=== PATIENT | female | born 1980 | race Caucasian/White ===

== ENCOUNTER 2016-02-15 23:18 | Emergency (ER) | payer OTHER ==
--- NOTE | 2016-02-16 03:17 | ED NURSING NOTES ---
Clinical Report - Nurses [facility] [address] [place] [address] 02/15/2016 23:19 Patient: ALEX WEBSTER TRIAGE Triage time 00:58. Acuity: LEVEL 4. Chief Complaint: COUGH, SORE THROAT and BODY ACHES. --01:04 Tereso Rodgers R.N. 00:58 02/16/16. BP: 143/106. HR: 108. RR: 15. O2 saturation: 100%. Temp: 99.1 F. Pain level now 05/22. --01:04 Tereso Rodgers R.N. Weight: 74.8 kg stated. Height/Length: 67 inches Per Patient. BMI: 25.9. --01:02 Tereso Rodgers R.N. Medications None. --00:59 Tereso Rodgers R.N. Medication/allergy information source: the patient. --01:04 Tereso Rodgers R.N. Allergies Tessalon. --01:00 Tereso Rodgers R.N. The following entry was struck by Tereso Rodgers R.N., 01:00 (02/16/16) Reason - other. <<STRICKEN ENTRY-- No Known Drug Allergy. --00:59 Tereso Rodgers R.N. --END STRIKE>>. History Arrived by private vehicle. Historian: patient. Accompanied by family and friend. Primary physician (Fidencio Daniels). This started yesterday. ( Pt came in with her daughter for cough that is productive that is brown to yellow. Sore throat. Pt denies any fever. Pt is n/v, but no abdominal pain.). She has had chest congestion and vomiting. 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 PAST MEDICAL HX: Immunizations: up-to-date. Denies current . SOCIAL HX: Former smoker. No alcohol use or drug use. --01:04 Tereso Rodgers R.N. PROBLEMS: UTI - Urinary Tract Infection. Pyelonephritis. Pelvic Inflammatory Disease. Dysmenorrhea. Contusion. Back Pain. Neck Pain. Tetanus Status. Abdominal Pain. Acute Pain. Bronchitis. Costochondritis. Vaginal Bleeding. Ectopic . Ureterolithiasis. Dental Pain. Abscess. Pharyngitis. Sinusitis. Migraine Headache. Pelvic Pain. Immunizations. Threatened . LNMP - Last Normal Menstrual Period. OB History. --01:00 Tereso Rodgers R.N. Pelvic Inflammatory Disease [RuleOut]. UTI - Urinary Tract Infection [RuleOut]. Dental Pain [RuleOut]. --01:00 Tereso Rodgers R.N. Interventions ID band on patient. To waiting room. --01:04 Tereso Rodgers R.N. DISPOSITION / DISCHARGE Departure time: 0325. Condition at departure: improved. No learning barriers present. Discharge instructions provided and reviewed with the patient. Reviewed warnings. Reviewed medication(s). Treatments reviewed. Reviewed diet. Activity restrictions reviewed. Patient verbalized understanding. Written instructions provided in Italian. The patient was discharged by the physician. She was discharged home and accompanied by spouse. She left the Emergency Department ambulatory and via private vehicle. Spouse driving. FALL RISK ASSESSMENT: Fall risk assessment completed. No fall risk identified. --03:31 Pancho Yu R.N. 03:30 02/16/16. BP: 138/98. HR: 88. RR: 16. O2 saturation: 99%. Temp: 98 F. Pain level now 0/10. --03:31 Pancho Yu R.N. Locked/Released at 02/16/2016 3:32 by Pancho Yu R.N.
--- NOTE | 2016-02-16 03:17 | ED ORDER SUMMARY ---
..... Patient: AELX WEBSTER OrderSheet [facility] VisitID: [id number] [address] [place] [address] 35y, F Registration Date/Time: 02/15/2016 ORDER SHEET Weight: 74.8 kg (stated) Allergies: Tessalon GENERAL ORDERS: Rapid Influenza Screen (Nasal Pharyngeal) (assistant professor sculpture) Urgent (01:11 02/16/2016 Tyler Brandon per protocol) (1:12 AMcQuoid ER Tech1) MEDICATION ORDERS: IV FLUIDS: ORDER SHEET NOTES: [Electronically signed by Pancho Yu R.N. (03:32 02/16/2016)] [Electronically signed by Nawaf Morales Dr. (11:08 02/16/2016)] [Electronically locked/signed by Pancho Yu R.N. (03:32 02/16/2016)]
--- NOTE | 2016-02-16 03:17 | ED CLINICAL REPORT ---
Clinical Report - Physicians/[facility] [address] [place] [address] 02/15/2016 23:19 Patient: ALEX WEBSTER Time Seen: 02:39 02:39; initial patient contact. Arrived- By private vehicle. Historian- patient. HISTORY OF PRESENT ILLNESS Chief Complaint: "FLU" and possible FLU EXPOSURE. This started about 2 days ago and is still present. It was gradual in onset. No fever, muscle aches, skin rash, headache or chills. No difficulty breathing, chest discomfort, nausea, vomiting or diarrhea. No sputum production. She has had a cough, sinus drainage, nasal congestion, a sore throat and a nasal discharge. The patient has had contact with a sick individual. Similar symptoms previously: None. Recent medical care: The patient was seen recently by a health care provider. REVIEW OF SYSTEMS No sinus pain or abdominal pain. All systems otherwise negative, except as recorded above. PAST HISTORY UTI - Urinary Tract Infection. Pyelonephritis. Pelvic Inflammatory Disease. Dysmenorrhea. Contusion. Back Pain. Neck Pain. Tetanus Status. Abdominal Pain. Acute Pain. Bronchitis. Costochondritis. Vaginal Bleeding. Ectopic . Ureterolithiasis. Dental Pain. Abscess. Pharyngitis. Sinusitis. Migraine Headache. Pelvic Pain. Immunizations. Threatened . LNMP - Last Normal Menstrual Period. OB History. --01:00 Tereso Rodgers R.N. Pelvic Inflammatory Disease [RuleOut]. UTI - Urinary Tract Infection [RuleOut]. Dental Pain [RuleOut]. -. Medications: None. Allergies: Tessalon. SOCIAL HISTORY Former smoker. No alcohol use or drug use. PHYSICAL EXAM Appearance: Alert. No acute distress. Eyes: No conjunctival findings. ENT: Ears normal. Nose normal. Pharyngeal erythema. Neck: No lymphadenopathy. CVS: Normal heart rate and rhythm. Heart sounds normal. Respiratory: No respiratory distress. Breath sounds normal. Skin: No rash. Neuro: Oriented X 3. LABS, X-RAYS, AND EKG Laboratory Tests: Rapid Influenza Screen: (RIMA: 02/16/2016 01:09) ( MsgRcvd 02/16/2016 01:40) Final results SPECIMEN DESCRIPTION: DECONTAMINATION WORKER Test Result Flag Units (Reference) RAPID INFLUENZA SCREEN DATE: 02/16/16 INFLUENZA A: NEGATIVE SCREEN FOR INFLUENZA A INFLUENZA B: NEGATIVE SCREEN FOR INFLUENZA B . PROGRESS AND PROCEDURES Disposition: Discharged home in good condition. Condition: good. CLINICAL IMPRESSION Acute viral rhinitis. Exposure to viral illness (Influenza A). INSTRUCTIONS Alternate Tylenol (Acetaminophen) or Motrin (Ibuprofen) for fever. Take according to label instructions. Drink plenty of fluids. Prescription Medications: Tamiflu 75 mg: take 1 capsule orally every day for 10 days. No refill. Substitution is permissible. Follow-up: Follow up with your doctor in about two days. Call for an appointment. (Electronically signed by Nawaf Morales Dr. 02/16/2016 11:08)
--- NOTE | 2016-02-16 03:17 | ED CLINICAL REPORT ---
Clinical Report - Physicians/Mid Levels [facility] [address] [place] [address] 02/15/2016 23:19 Patient: ALEX WEBSTER Time Seen: 02:39 02:39; initial patient contact. Arrived- By private vehicle. Historian- patient. HISTORY OF PRESENT ILLNESS Chief Complaint: "FLU" and possible FLU EXPOSURE. This started about 2 days ago and is still present. It was gradual in onset. No fever, muscle aches, skin rash, headache or chills. No difficulty breathing, chest discomfort, nausea, vomiting or diarrhea. No sputum production. She has had a cough, sinus drainage, nasal congestion, a sore throat and a nasal discharge. The patient has had contact with a sick individual. Similar symptoms previously: None. Recent medical care: The patient was seen recently by a health care provider. REVIEW OF SYSTEMS No sinus pain or abdominal pain. All systems otherwise negative, except as recorded above. PAST HISTORY UTI - Urinary Tract Infection. Pyelonephritis. Pelvic Inflammatory Disease. Dysmenorrhea. Contusion. Back Pain. Neck Pain. Tetanus Status. Abdominal Pain. Acute Pain. Bronchitis. Costochondritis. Vaginal Bleeding. Ectopic . Ureterolithiasis. Dental Pain. Abscess. Pharyngitis. Sinusitis. Migraine Headache. Pelvic Pain. Immunizations. Threatened . LNMP - Last Normal Menstrual Period. OB History. --01:00 Tereso Rodgers R.N. Pelvic Inflammatory Disease [RuleOut]. UTI - Urinary Tract Infection [RuleOut]. Dental Pain [RuleOut]. -. Medications: None. Allergies: Tessalon. SOCIAL HISTORY Former smoker. No alcohol use or drug use. PHYSICAL EXAM Appearance: Alert. No acute distress. Eyes: No conjunctival findings. ENT: Ears normal. Nose normal. Pharyngeal erythema. Neck: No lymphadenopathy. CVS: Normal heart rate and rhythm. Heart sounds normal. Respiratory: No respiratory distress. Breath sounds normal. Skin: No rash. Neuro: Oriented X 3. LABS, X-RAYS, AND EKG Laboratory Tests: Rapid Influenza Screen: (RIMA: 02/16/2016 01:09) ( MsgRcvd 02/16/2016 01:40) Final results SPECIMEN DESCRIPTION: CHIEF LIBRARIAN BRANCH Test Result Flag Units (Reference) RAPID INFLUENZA SCREEN DATE: 02/16/16 INFLUENZA A: NEGATIVE SCREEN FOR INFLUENZA A INFLUENZA B: NEGATIVE SCREEN FOR INFLUENZA B . PROGRESS AND PROCEDURES Disposition: Discharged home in good condition. Condition: good. CLINICAL IMPRESSION Acute viral rhinitis. Exposure to viral illness (Influenza A). INSTRUCTIONS Alternate Tylenol (Acetaminophen) or Motrin (Ibuprofen) for fever. Take according to label instructions. Drink plenty of fluids. Prescription Medications: Tamiflu 75 mg: take 1 capsule orally every day for 10 days. No refill. Substitution is permissible. Follow-up: Follow up with your doctor in about two days. Call for an appointment. (Electronically signed by Nawaf Morales Dr. 02/16/2016 11:08)
--- NOTE | 2016-02-16 03:17 | ED ORDER SUMMARY ---
..... Patient: ALEX WEBSTER OrderSheet [facility] VisitID: [id number] [address] [place] [address] 35y, F Registration Date/Time: 02/15/2016 ORDER SHEET Weight: 74.8 kg (stated) Allergies: Tessalon GENERAL ORDERS: Rapid Influenza Screen (Nasal Pharyngeal) (specification consultant) Urgent (01:11 02/16/2016 Tyler Brandon per protocol) (1:12 AMcQuoid ER Tech1) MEDICATION ORDERS: IV FLUIDS: ORDER SHEET NOTES: [Electronically signed by Pancho Yu R.N. (03:32 02/16/2016)] [Electronically signed by Nawaf Morales Dr. (11:08 02/16/2016)] [Electronically locked/signed by Pancho Yu R.N. (03:32 02/16/2016)]
--- NOTE | 2016-02-16 03:17 | ED NURSING NOTES ---
Clinical Report - Nurses [facility] [address] [place] [address] 02/15/2016 23:19 Patient: ALEX WEBSTER TRIAGE Triage time 00:58. Acuity: LEVEL 4. Chief Complaint: COUGH, SORE THROAT and BODY ACHES. --01:04 Tereso Rodgers R.N. 00:58 02/16/16. BP: 143/106. HR: 108. RR: 15. O2 saturation: 100%. Temp: 99.1 F. Pain level now 05/22. --01:04 Tereso Rodgers R.N. Weight: 74.8 kg stated. Height/Length: 67 inches Per Patient. BMI: 25.9. --01:02 Tereso Rodgers R.N. Medications None. --00:59 Tereso Rodgers R.N. Medication/allergy information source: the patient. --01:04 Tereso Rodgers R.N. Allergies Tessalon. --01:00 Tereso Rodgers R.N. The following entry was struck by Tereso Rodgers R.N., 01:00 (02/16/16) Reason - other. <<STRICKEN ENTRY-- No Known Drug Allergy. --00:59 Tereso Rodgers R.N. --END STRIKE>>. History Arrived by private vehicle. Historian: patient. Accompanied by family and friend. Primary physician (Fidencio Daniels). This started yesterday. ( Pt came in with her daughter for cough that is productive that is brown to yellow. Sore throat. Pt denies any fever. Pt is n/v, but no abdominal pain.). She has had chest congestion and vomiting. 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 PAST MEDICAL HX: Immunizations: up-to-date. Denies current . SOCIAL HX: Former smoker. No alcohol use or drug use. --01:04 Tereso Rodgers R.N. PROBLEMS: UTI - Urinary Tract Infection. Pyelonephritis. Pelvic Inflammatory Disease. Dysmenorrhea. Contusion. Back Pain. Neck Pain. Tetanus Status. Abdominal Pain. Acute Pain. Bronchitis. Costochondritis. Vaginal Bleeding. Ectopic . Ureterolithiasis. Dental Pain. Abscess. Pharyngitis. Sinusitis. Migraine Headache. Pelvic Pain. Immunizations. Threatened . LNMP - Last Normal Menstrual Period. OB History. --01:00 Tereso Rodgers R.N. Pelvic Inflammatory Disease [RuleOut]. UTI - Urinary Tract Infection [RuleOut]. Dental Pain [RuleOut]. --01:00 Tereso Rodgers R.N. Interventions ID band on patient. To waiting room. --01:04 Tereso Rodgers R.N. DISPOSITION / DISCHARGE Departure time: 0325. Condition at departure: improved. No learning barriers present. Discharge instructions provided and reviewed with the patient. Reviewed warnings. Reviewed medication(s). Treatments reviewed. Reviewed diet. Activity restrictions reviewed. Patient verbalized understanding. Written instructions provided in [place]. The patient was discharged by the physician. She was discharged home and accompanied by spouse. She left the Emergency Department ambulatory and via private vehicle. Spouse driving. FALL RISK ASSESSMENT: Fall risk assessment completed. No fall risk identified. --03:31 Pancho Yu R.N. 03:30 02/16/16. BP: 138/98. HR: 88. RR: 16. O2 saturation: 99%. Temp: 98 F. Pain level now 0/10. --03:31 Pancho Yu R.N. Locked/Released at 02/16/2016 3:32 by Pancho Yu R.N.
--- NOTE | 2016-02-16 11:08 | ED MAR SUMMARY ---
..... Medication Administration Record [facility] [address], [place] [id number] Patient: ALEX WEBSTER Victorino Visit ID: [id number] 35y, F Weight: 74.8 kg Height/Length: 67 in BMI: 25.9 ALLERGIES: Tessalon
--- NOTE | 2016-02-16 11:08 | ED DISCHARGE INSTRUCTIONS ---
Patient: ALEX WEBSTER General Instructions [facility] VisitID: [id number] [place] [address] 35y, F Registration Date/Time: 02/15/2016 Acute viral rhinitis. Exposure to viral illness (Influenza A). INSTRUCTIONS Alternate Tylenol (Acetaminophen) or Motrin (Ibuprofen) for fever. Take according to label instructions. Drink plenty of fluids. Prescription Medications: Tamiflu 75 mg: take 1 capsule orally every day for 10 days. No refill. Substitution is permissible. Follow-up: Follow up with your doctor in about two days. Call for an appointment. ADDITIONAL INFORMATION Viral Respiratory Illness [Adult] You have an Upper Respiratory Illness (URI) caused by a virus. This illness is contagious during the first few days. It is spread through the air by coughing and sneezing or by direct contact (touching the sick person and then touching your own eyes, nose or mouth). Most viral illnesses go away within 7-10 days with rest and simple home remedies. Sometimes, the illness may last for several weeks. Antibiotics will not kill a virus and are generally not prescribed for this condition. Home Care: 1) If symptoms are severe, rest at home for the first 2-3 days. When you resume activity, don't let yourself get too tired. 2) Avoid being exposed to cigarette smoke (yours or others). 3) Tylenol (acetaminophen) or ibuprofen (Advil, Motrin) will help fever, muscle aching and headache. (Persons under 18 with fever should not take aspirin since this may cause liver damage.) 4) Your appetite may be poor, so a light diet is fine. Avoid dehydration by drinking 6-8 glasses of fluids per day (water, soft drinks, juices, tea, soup). Extra fluids will help loosen secretions in the nose and lungs. 5) Aobt-kii-posayqe cold medicines will not shorten the length of time youre sick, but they may be helpful for the following symptoms: cough (Robitussin DM); sore throat (Chloraseptic lozenges or spray); nasal and sinus congestion (Actifed, Sudafed, Chlortrimeton). Follow Up with your doctor or as advised if you dont improve over the next week. Get Prompt Medical Attention if any of the following occur: -- Cough with lots of colored sputum (mucus) or blood in your sputum -- Chest pain, shortness of breath, wheezing or have trouble breathing -- Severe headache; face, neck or ear pain -- Fever over 100.4 F (38.0 C) for more than three days -- You cant swallow due to throat pain Fever Control (Adult) A fever is a natural reaction of the body to an illness. In most cases, the temperature itself is not harmful. It actually helps the body fight infections. A fever does not need to be treated unless you feel very uncomfortable. Home Care If you feel warm, check your temperature. If you feel very uncomfortable and your temperature is at or higher than 100.4F (38C) oral, you may take acetaminophen (Tylenol) every 4 to 6 hours. If you cant take or keep down oral medicine, ask your pharmacist for Tylenol suppositories, which you can get without a prescription. If the fever does not respond to acetaminophen within 1 hour, take ibuprofen (Advil or Motrin). If this works, keep taking the ibuprofen every 6 to 8 hours. Note: If you have chronic liver or kidney disease or ever had a stomach ulcer or GI bleeding, talk with your doctor before using these medications. If either medication alone does not keep the fever down, you may alternate the two medicines every 3 to 4 hours, only if your healthcare provider has instructed you to do so. For example, take Motrin then wait 3 hours, take Tylenol then wait 3 hours, take Motrin, and so on. Follow your healthcare providers instructions exactly. Clothing: Keep clothing light because excess body heat is lost through the skin. The fever will go up if you wear extra layers or wrap in blankets. Fluids: Fever causes the body to lose water through evaporation. Drink plenty of fluids such as water, juice, clear sodas, yash derek, or lemonade. Do not use aspirin in anyone under 18 years of age who is ill with a fever. It can cause severe liver damage. Follow Up with your doctor or as advised by our staff if you do not get better after 48 hours. Get Prompt Medical Attention if any of the following occur: Fever does not get better after taking fever medication Fast or difficult breathing Earache, sinus pain, stiff or painful neck, headache, repeated diarrhea or vomiting You feel unusually irritable, drowsy, or confused A rash appears You feel weak or dizzy, or that you might faint Oseltamivir Phosphate Oral capsule What is this medicine? OSELTAMIVIR (os el CHAN i vir) is an antiviral medicine. It is used to prevent and to treat some kinds of influenza or the flu. It will not work for colds or other viral infections. How should I use this medicine? Take this medicine by mouth with a glass of water. Follow the directions on the prescription label. Start this medicine at the first sign of flu symptoms. You can take it with or without food. If it upsets your stomach, take it with food. Take your medicine at regular intervals. Do not take your medicine more often than directed. Take all of your medicine as directed even if you think you are better. Do not skip doses or stop your medicine early. Talk to your student financial services counselor regarding the use of this medicine in children. While this drug may be prescribed for children as young as 14 days for selected conditions, precautions do apply. What side effects may I notice from receiving this medicine? Side effects that you should report to your doctor or health managed care manager as soon as possible: allergic reactions like skin rash, itching or hives, swelling of the face, lips, or tongue anxiety, confusion, unusual behavior breathing problems hallucination, loss of contact with reality redness, blistering, peeling or loosening of the skin, including inside the mouth seizures Side effects that usually do not require medical attention (report to your doctor or health managed care manager if they continue or are bothersome): cough diarrhea dizziness headache nausea, vomiting stomach pain What may interact with this medicine? Interactions are not expected. What if I miss a dose? If you miss a dose, take it as soon as you remember. If it is almost time for your next dose (within 2 hours), take only that dose. Do not take double or extra doses. Where should I keep my medicine? Keep out of the reach of children. Store at room temperature between 15 and 30 degrees C (59 and 86 degrees F). Throw away any unused medicine after the expiration date. What should I tell my health care provider before I take this medicine? They need to know if you have any of the following conditions: heart disease immune system problems kidney disease liver disease lung disease an unusual or allergic reaction to oseltamivir, other medicines, foods, dyes, or preservatives or trying to get breast-feeding What should I watch for while using this medicine? Visit your doctor or health managed care manager for regular check ups. Tell your doctor if your symptoms do not start to get better or if they get worse. If you have the flu, you may be at an increased risk of developing seizures, confusion, or abnormal behavior. This occurs early in the illness, and more frequently in children and teens. These events are not common, but may result in accidental injury to the patient. Families and caregivers of patients should watch for signs of unusual behavior and contact a doctor or health managed care manager right away if the patient shows signs of unusual behavior. This medicine is not a substitute for the flu shot. Talk to your doctor each year about an annual flu shot. You have been given the following additional information: Uri, Viral, No Abx (Adult) Fever Control (Adult) Oseltamivir Phosphate Oral capsule (Electronically signed by Nawaf Morales Dr. 02/16/2016 11:08)
--- NOTE | 2016-02-16 11:08 | ED MAR SUMMARY ---
..... Medication Administration Record [facility] [address] [place], [place] [id number] Patient: ALEX WEBSTER Victorino Visit ID: [id number] 35y, F Weight: 74.8 kg Height/Length: 67 in BMI: 25.9 ALLERGIES: Tessalon
--- NOTE | 2016-02-16 11:08 | ED DISCHARGE INSTRUCTIONS ---
Patient: ALEX WEBSTER General Instructions [facility] VisitID: [id number] [place] [address] 35y, F Registration Date/Time: 02/15/2016 Acute viral rhinitis. Exposure to viral illness (Influenza A). INSTRUCTIONS Alternate Tylenol (Acetaminophen) or Motrin (Ibuprofen) for fever. Take according to label instructions. Drink plenty of fluids. Prescription Medications: Tamiflu 75 mg: take 1 capsule orally every day for 10 days. No refill. Substitution is permissible. Follow-up: Follow up with your doctor in about two days. Call for an appointment. ADDITIONAL INFORMATION Viral Respiratory Illness [Adult] You have an Upper Respiratory Illness (URI) caused by a virus. This illness is contagious during the first few days. It is spread through the air by coughing and sneezing or by direct contact (touching the sick person and then touching your own eyes, nose or mouth). Most viral illnesses go away within 7-10 days with rest and simple home remedies. Sometimes, the illness may last for several weeks. Antibiotics will not kill a virus and are generally not prescribed for this condition. Home Care: 1) If symptoms are severe, rest at home for the first 2-3 days. When you resume activity, don't let yourself get too tired. 2) Avoid being exposed to cigarette smoke (yours or others). 3) Tylenol (acetaminophen) or ibuprofen (Advil, Motrin) will help fever, muscle aching and headache. (Persons under 18 with fever should not take aspirin since this may cause liver damage.) 4) Your appetite may be poor, so a light diet is fine. Avoid dehydration by drinking 6-8 glasses of fluids per day (water, soft drinks, juices, tea, soup). Extra fluids will help loosen secretions in the nose and lungs. 5) Njmg-jso-vbxcesh cold medicines will not shorten the length of time youre sick, but they may be helpful for the following symptoms: cough (Robitussin DM); sore throat (Chloraseptic lozenges or spray); nasal and sinus congestion (Actifed, Sudafed, Chlortrimeton). Follow Up with your doctor or as advised if you dont improve over the next week. Get Prompt Medical Attention if any of the following occur: -- Cough with lots of colored sputum (mucus) or blood in your sputum -- Chest pain, shortness of breath, wheezing or have trouble breathing -- Severe headache; face, neck or ear pain -- Fever over 100.4 F (38.0 C) for more than three days -- You cant swallow due to throat pain Fever Control (Adult) A fever is a natural reaction of the body to an illness. In most cases, the temperature itself is not harmful. It actually helps the body fight infections. A fever does not need to be treated unless you feel very uncomfortable. Home Care If you feel warm, check your temperature. If you feel very uncomfortable and your temperature is at or higher than 100.4F (38C) oral, you may take acetaminophen (Tylenol) every 4 to 6 hours. If you cant take or keep down oral medicine, ask your pharmacist for Tylenol suppositories, which you can get without a prescription. If the fever does not respond to acetaminophen within 1 hour, take ibuprofen (Advil or Motrin). If this works, keep taking the ibuprofen every 6 to 8 hours. Note: If you have chronic liver or kidney disease or ever had a stomach ulcer or GI bleeding, talk with your doctor before using these medications. If either medication alone does not keep the fever down, you may alternate the two medicines every 3 to 4 hours, only if your healthcare provider has instructed you to do so. For example, take Motrin then wait 3 hours, take Tylenol then wait 3 hours, take Motrin, and so on. Follow your healthcare providers instructions exactly. Clothing: Keep clothing light because excess body heat is lost through the skin. The fever will go up if you wear extra layers or wrap in blankets. Fluids: Fever causes the body to lose water through evaporation. Drink plenty of fluids such as water, juice, clear sodas, yash derek, or lemonade. Do not use aspirin in anyone under 18 years of age who is ill with a fever. It can cause severe liver damage. Follow Up with your doctor or as advised by our staff if you do not get better after 48 hours. Get Prompt Medical Attention if any of the following occur: Fever does not get better after taking fever medication Fast or difficult breathing Earache, sinus pain, stiff or painful neck, headache, repeated diarrhea or vomiting You feel unusually irritable, drowsy, or confused A rash appears You feel weak or dizzy, or that you might faint Oseltamivir Phosphate Oral capsule What is this medicine? OSELTAMIVIR (os el CHAN i vir) is an antiviral medicine. It is used to prevent and to treat some kinds of influenza or the flu. It will not work for colds or other viral infections. How should I use this medicine? Take this medicine by mouth with a glass of water. Follow the directions on the prescription label. Start this medicine at the first sign of flu symptoms. You can take it with or without food. If it upsets your stomach, take it with food. Take your medicine at regular intervals. Do not take your medicine more often than directed. Take all of your medicine as directed even if you think you are better. Do not skip doses or stop your medicine early. Talk to your court officer regarding the use of this medicine in children. While this drug may be prescribed for children as young as 14 days for selected conditions, precautions do apply. What side effects may I notice from receiving this medicine? Side effects that you should report to your doctor or health patient care provider as soon as possible: allergic reactions like skin rash, itching or hives, swelling of the face, lips, or tongue anxiety, confusion, unusual behavior breathing problems hallucination, loss of contact with reality redness, blistering, peeling or loosening of the skin, including inside the mouth seizures Side effects that usually do not require medical attention (report to your doctor or health patient care provider if they continue or are bothersome): cough diarrhea dizziness headache nausea, vomiting stomach pain What may interact with this medicine? Interactions are not expected. What if I miss a dose? If you miss a dose, take it as soon as you remember. If it is almost time for your next dose (within 2 hours), take only that dose. Do not take double or extra doses. Where should I keep my medicine? Keep out of the reach of children. Store at room temperature between 15 and 30 degrees C (59 and 86 degrees F). Throw away any unused medicine after the expiration date. What should I tell my health care provider before I take this medicine? They need to know if you have any of the following conditions: heart disease immune system problems kidney disease liver disease lung disease an unusual or allergic reaction to oseltamivir, other medicines, foods, dyes, or preservatives or trying to get breast-feeding What should I watch for while using this medicine? Visit your doctor or health patient care provider for regular check ups. Tell your doctor if your symptoms do not start to get better or if they get worse. If you have the flu, you may be at an increased risk of developing seizures, confusion, or abnormal behavior. This occurs early in the illness, and more frequently in children and teens. These events are not common, but may result in accidental injury to the patient. Families and caregivers of patients should watch for signs of unusual behavior and contact a doctor or health patient care provider right away if the patient shows signs of unusual behavior. This medicine is not a substitute for the flu shot. Talk to your doctor each year about an annual flu shot. You have been given the following additional information: Uri, Viral, No Abx (Adult) Fever Control (Adult) Oseltamivir Phosphate Oral capsule (Electronically signed by Nawaf Morales Dr. 02/16/2016 11:08)
--- NOTE | 2016-02-16 11:08 | ED MED RECONCILIATION SUMMARY ---
Patient: ALEX WEBSTER Medication Reconciliation Report [facility] VisitID: [id number] [address] [place] [address] 35y, F Registration Date/Time: 02/15/2016 Weight: 74.8 kg Height/Length: 67 in. BMI: 25.9 ALLERGIES: Tessalon The patient's Home Medications are listed below: NONE. The source(s) of the original Home Medication information: patient The following Medications were given to the patient in the Emergency Department: None. The following Medications were prescribed to the patient: Tamiflu 75 mg: take 1 capsule orally every day for 10 days. No refill. Substitution is permissible. -- Nawaf Morales Dr.
--- NOTE | 2016-02-16 11:08 | ED MED RECONCILIATION SUMMARY ---
Patient: ALEX WEBSTER Medication Reconciliation Report [facility] VisitID: [id number] [address] [place] [address] 35y, F Registration Date/Time: 02/15/2016 Weight: 74.8 kg Height/Length: 67 in. BMI: 25.9 ALLERGIES: Tessalon The patient's Home Medications are listed below: NONE. The source(s) of the original Home Medication information: patient The following Medications were given to the patient in the Emergency Department: None. The following Medications were prescribed to the patient: Tamiflu 75 mg: take 1 capsule orally every day for 10 days. No refill. Substitution is permissible. -- Nawaf Morales Dr.
== END 2016-02-16 03:25 | disposition home or self-care (01) ==
LOC: ED SRH 23:18
DX: J00 Acute nasopharyngitis [common cold] (principal); B97.89 Other viral agents as the cause of diseases classified elsewhere; Z20.828 Contact with and (suspected) exposure to other viral communicable diseases; G43.909 Migraine, unspecified, not intractable, without status migrainosus; Z88.8 Allergy status to other drugs, medicaments and biological substances
CPT/HCPCS: 91400

== ENCOUNTER 2016-03-13 18:19 | Emergency (ER) | payer OTHER ==
--- NOTE | 2016-03-13 19:49 | ED NURSING NOTES ---
Clinical Report - Nurses [facility] [address] [place] [address] 03/13/2016 18:20 Patient: ALEX WEBSTER TRIAGE Triage time 1825 PM. Acuity: LEVEL 4. Chief Complaint: ABDOMINAL PAIN and NAUSEA. --18:33 Maggie Chavira R.N. 18:25 03/13/16. BP: 138/100. HR: 98. RR: 16. O2 saturation: 100%. Temp: 97.7 F (oral). Pain level now: 07/22. --18:33 Maggie Chavira R.N. Weight: 77.1 kg stated. Height/Length: 67 inches Per Patient. BMI: 26.6. --18:27 Maggie Chavira R.N. Medications None. --18:31 Maggie Chavira R.N. Allergies Tessalon. --18:31 Maggie Chavira R.N. Medication/allergy information source: the patient. --18:33 Maggie Chavira R.N. History Arrived by private vehicle. Historian: patient. Primary physician (Dr Mancilla). ( Pt states as of yesterday starting having abdominal pain cramping like pain with radiation to right flank area, nauseous, denies fever or chills. Pt does admit to feeling like a kidney stone, does admit to some bleeding.). This started yesterday. She has had nausea and abdominal pain. No vomiting, diarrhea or constipation. 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 PAST MEDICAL HX: Immunizations: up-to-date. SOCIAL HX: Former smoker. No alcohol use or drug use. No recent travel. No infectious disease exposure. No known contact with a sick individual. ABUSE ASSESSMENT: No report of abuse. SELF HARM ASSESSMENT: A self harm assessment was performed. The patient answered "no" to the question "Do you have thoughts of harming or killing yourself?" and "Have you recently had thoughts about harming or killing others?". FALL RISK ASSESSMENT: Fall risk assessment completed. No fall risk identified. NUTRITIONAL RISK ASSESSMENT: The nutritional risk assessment revealed no deficiencies. FUNCTIONAL ASSESSMENT: Functional assessment: no impairments noted. LEARNING NEEDS ASSESSMENT: The learning needs assessment revealed no barriers. SKIN INTEGRITY ASSESSMENT: Skin integrity risk assessment completed. No skin integrity risk identified. --18:33 Maggie Chavira R.N. PROBLEMS: Exposure To Infectious Disease. URI. UTI - Urinary Tract Infection. Pyelonephritis. Pelvic Inflammatory Disease. Dysmenorrhea. Contusion. Back Pain. Neck Pain. Tetanus Status. Abdominal Pain. Acute Pain. Bronchitis. Costochondritis. Vaginal Bleeding. Ectopic . Ureterolithiasis. Dental Pain. Abscess. Pharyngitis. Sinusitis. Migraine Headache. Pelvic Pain. Immunizations. Threatened . LNMP - Last Normal Menstrual Period. OB History. --18:31 Maggie Chavira R.N. Pelvic Inflammatory Disease [RuleOut]. UTI - Urinary Tract Infection [RuleOut]. Dental Pain [RuleOut]. --18:31 Maggie Chavira R.N. ADDITIONAL SURGERIES: Cone biopsy. Lithotripsy. --18:31 Maggie Chavira R.N. Interventions ID band on patient. --18:33 Maggie Chavira R.N. PHYSICAL ASSESSMENT GENERAL / NEURO / PSYCH: Alert. Oriented X 4. Appears in no acute distress. HEENT: Mucous membranes are pink. RESPIRATORY: Respirations not labored. Breath sounds within normal limits. CVS: Capillary refill less than 2 seconds. GI / : The patient has had nausea. Abdomen soft and nontender. Abdominal tenderness in the lower abdomen. SKIN: Skin is warm and dry. --18:34 Maggie Chavira R.N. NURSING PROGRESS NOTES The initial plan of care for this patient has been created This plan of care was discussed with the patient and family. Patient gowned. Warming measures: blanket applied. Reassurance given. Patient ID band checked for patient name, birthdate and medical record number: patient confirmed. Instructions provided to collect clean catch urine and patient verbalized understanding. Clean catch urine collected with return of yellow-colored clear urine; sample sent to lab for urinalysis. Specimen labeled in the presence of the patient. Two patient identifiers checked. Call light placed in reach. Side rails up x 1. Bed placed in lowest position. Brakes of bed on. Patient placed in chair. Brakes of chair on. --18:34 Maggie Chavira R.N. 18:35 03/13/16. BP: 144/99 taken on the left arm, via an automated monitor, while sitting. HR: 100. RR: 16. O2 saturation: 100%. Pain level now: 07/22. --18:35 Maggie Chavira R.N. Checked patient name and birthdate: patient confirmed. Blood samples drawn from the right antecubital space with syringe and butterfly by tech per protocol ; labeled in presence of the patient and sent to lab: rainbow set: cardiac enzymes (1st set). --19:50 Sebastien Desir. DISPOSITION / DISCHARGE Departure time: 1954 PM. Condition at departure: stable. No learning barriers present. Discharge instructions provided and reviewed. Reviewed medication(s) side effects, precautions, dosing and course information. Prescription(s) given to the patient. Patient verbalized understanding. Written instructions provided in Sinhala. The patient was discharged by the physician paraprofessional education assistant. She was discharged home and accompanied by family. She left the Emergency Department ambulatory and via private vehicle. Parent driving. FALL RISK ASSESSMENT: Fall risk assessment completed. No fall risk identified. CLAUDINE COMA SCORE: [place] Coma Scale: 15- eyes open spontaneously (4); best verbal response- oriented x 4 (5); best motor response- obeys commands (6). --20:02 Maggie Chavira R.N. 19:50 03/13/16. BP: 134/89 (regular adult cuff) taken on the left arm, via an automated monitor, while sitting. HR: 73. RR: 16 (regular). O2 saturation: 100% on room air. Temp: 98.2 F. Pain level now: 06/21. --20:02 Maggie Chavira R.N. Locked/Released at 03/13/2016 20:03 by Maggie Chavira R.N.
--- NOTE | 2016-03-13 19:49 | ED CLINICAL REPORT ---
Clinical Report - Physicians/Mid Levels [facility] [address] [place] [address] 03/13/2016 18:20 Patient: ALEX WEBSTER Time Seen: 18:53 Mar 13 2016. Arrived- By private vehicle. Historian- patient. HISTORY OF PRESENT ILLNESS Chief Complaint: ABDOMINAL PAIN. This started just prior to arrival and is still present. It is described as "pain". (R abd pain/ flank pain, similar pain to nephrolithaisis in the past, possible hematuria. Pt with no emesis/ diarrhea. LMP about 6 weeks prior, neg at home u preg.). REVIEW OF SYSTEMS No difficulty with urination, pain with urination, fever, headache or chills. All systems otherwise negative, except as recorded above. PAST HISTORY Problems: Exposure To Infectious Disease. URI. UTI - Urinary Tract Infection. Pyelonephritis. Pelvic Inflammatory Disease. Dysmenorrhea. Contusion. Back Pain. Neck Pain. Tetanus Status. Abdominal Pain. Acute Pain. Bronchitis. Costochondritis. Vaginal Bleeding. Ectopic . Ureterolithiasis. Dental Pain. Abscess. Pharyngitis. Sinusitis. Migraine Headache. Pelvic Pain. Immunizations. Threatened . LNMP - Last Normal Menstrual Period. OB History. Additional Surgeries: Cone biopsy. Lithotripsy. Medications: None. Allergies: Tessalon. SOCIAL HISTORY Former smoker. No alcohol use or drug use. ADDITIONAL NOTES The nursing notes have been reviewed. PHYSICAL EXAM Vital Signs: 03/13/2016 19:50 BP: 134/89. HR: 73. RR: 16. O2 saturation: 100%. Temp: 98.2 F. Pain level now: 5/10. Appearance: Alert. No acute distress. Eyes: Eyes normal inspection. Neck: Normal inspection. Neck supple. CVS: Normal heart rate and rhythm. Heart sounds normal. Respiratory: No respiratory distress. No respiratory distress. Breath sounds normal. No accessory muscle use. Abdomen: Soft. No abdominal tenderness. (no reproducible examination are). Back: Normal inspection. Skin: Skin warm. Normal skin color. LABS, X-RAYS, AND EKG Laboratory Tests: UA-Culture if indicated: (RIMA: 03/13/2016 18:30) ( [facility] 03/13/2016 19:04) Final results Test Result Flag Units (Reference) URINE COLOR YELLOW URINE APPEARANCE CLEAR URINE GLUCOSE NEGATIVE (NEGATIVE) URINE BILIRUBIN NEGATIVE (NEGATIVE) URINE KETONE NEGATIVE (NEGATIVE) URINE SPECIFIC GRAVITY 1.015 (1.010-1.030) URINE PH 8.5 H (5.0-8.0) URINE PROTEIN NEGATIVE (NEGATIVE) URINE UROBILINOGEN 0.2 EU/dL (0.2-1.0) URINE NITRITE NEGATIVE (NEGATIVE) URINE BLOOD NEGATIVE (NEGATIVE) URINE LEUK ESTERASE NEGATIVE (NEGATIVE) URINE RBC NONE SEEN rbc/hpf (0-1) URINE WBC 0-1 wbc/hpf (0-1) URINE EPITHELIAL CELLS 1-3 EPI/hpf (0-5) URINE BACTERIA NONE SEEN (NONE SEEN) URINE COMMENT CULT NOT INDICATED URINE CULTURES ARE SET-UP BASED ON THE FOLLOWING CRITERIA:POSITIVE NITRITEPOSITIVE LEUKOCYTE ESTERASEGREATER THAN 10 WHITE BLOOD CELLSMODERATE (2+) OR GREATER BACTERIA Urine: (RIMA: 03/13/2016 18:30) ( [facility] 03/13/2016 18:56) Final results Test Result Flag Units (Reference) URINE NEGATIVE CBC w Diff: (RIMA: 03/13/2016 19:10) ( [facility] 03/13/2016 19:19) Final results Test Result Flag Units (Reference) WHITE BLOOD COUNT 7.4 K/uL (4.5-11.5) RED BLOOD COUNT 4.46 M/uL (4.00-5.20) HEMOGLOBIN 12.4 gm/dL (12.0-16.0) HEMATOCRIT 38.3 % (36.0-46.0) MEAN CELL VOLUME 86 fL (80-100) MEAN CORPUSCULAR HGB 28 pg (26-34) MEAN CORPUSCULAR HGB CONC 32 g/dL (31-37) RED CELL DISTRIBUTION WIDTH 14.6 % (11.6-14.8) PLATELET COUNT 206 K/uL (150-400) NEUTROPHIL % 66.8 % (50-75) LYMPH % 26.2 % (25-40) MONO % 5.9 % (3-14) EOSINOPHIL % 0.7 % (0-4) BASOPHIL % 0.4 % (0-2) CMP: (RIMA: 03/13/2016 19:10) ( MsgRcvd 03/13/2016 19:29) Final results Test Result Flag Units (Reference) GLUCOSE 90 mg/dL (70-110) BUN 10 mg/dL (7-18) CREATININE 0.6 mg/dL (0.6-1.3) Estimated GFR >60 mL/min Estimated GFR- >60 mL/min Note: Persistent reduction over 3 months in eGFR<60 mL/min/1.73 m2 defines CKD. Patients with eGFR values>=60 mL/min/1.73 m2 may also have CKD if evidence ofpersistent proteinuria. Additional information may be foundat www.[email or web address].org. SODIUM 142 mmol/L (136-145) POTASSIUM 3.6 mmol/L (3.5-5.1) CHLORIDE 108 H mmol/L (98-107) CARBON DIOXIDE 28 mmol/L (21-32) CALCIUM 8.5 mg/dL (8.5-10.1) TOTAL PROTEIN 7.1 g/dL (6.4-8.2) ALBUMIN 3.9 g/dL (3.3-5.0) BILIRUBIN, TOTAL 0.2 mg/dL (0.0-1.0) ALKALINE PHOSPHATASE 67 U/L (46-116) AST (SGOT) 14 L U/L (15-37) ALT (SGPT) 23 U/L (12-78) . PROGRESS AND PROCEDURES Course of Care: During the time in the ED, the following DDX were considered: acute surgical abdomen, hemodynamic or metabolic instability, dehydration, gastroenteritis-viral, food borne, or bacterial, food intolerance, irritable or inflammatory bowel, infection, sepsis. Here in er with salo form with [facility] will forego ct at this time, will tx for possible presumptive nephrolithiasis with hydration, and tramadol. Pt otherwise stable and no signs of acute surgical abdome. 03/13/2016 19:50 BP: 134/89. HR: 73. RR: 16. O2 saturation: 100%. Temp: 98.2 F. Pain level now: 5/10. Patient is stable. Physical exam findings are improved. Patient/family counseled. Disposition: Discharged. Condition: good. CLINICAL IMPRESSION Acute abdominal pain of unknown cause. Acute right flank pain INSTRUCTIONS Strenuous activity allowed. Do not return to work. Drink plenty of fluids. (presumed possible kidney stone Follow up with your urology or regular DR). Prescription Medications: Zofran (orally disintegrating tablets) 4 mg: take 1 orally every 6 hours for 3 days as needed for nausea. No refill. Substitution is permissible. Ultram 50 mg: take 1 orally every 6 hours for 3 days, as needed for pain. Dispense ten (10). No refills. Substitution is permissible. Follow-up: Follow up with your doctor in three days. (Electronically signed by Tanya Ryan P.A.-C 03/13/2016 20:17)
--- NOTE | 2016-03-13 19:49 | ED NURSING NOTES ---
Clinical Report - Nurses [facility] [address] [place] [address] 03/13/2016 18:20 Patient: ALEX WEBSTER TRIAGE Triage time 1825 PM. Acuity: LEVEL 4. Chief Complaint: ABDOMINAL PAIN and NAUSEA. --18:33 Maggie Chavira R.N. 18:25 03/13/16. BP: 138/100. HR: 98. RR: 16. O2 saturation: 100%. Temp: 97.7 F (oral). Pain level now: 07/22. --18:33 Maggie Chavira R.N. Weight: 77.1 kg stated. Height/Length: 67 inches Per Patient. BMI: 26.6. --18:27 Maggie Chavira R.N. Medications None. --18:31 Maggie Chavira R.N. Allergies Tessalon. --18:31 Maggie Chavira R.N. Medication/allergy information source: the patient. --18:33 Maggie Chavira R.N. History Arrived by private vehicle. Historian: patient. Primary physician (Dr Mancilla). ( Pt states as of yesterday starting having abdominal pain cramping like pain with radiation to right flank area, nauseous, denies fever or chills. Pt does admit to feeling like a kidney stone, does admit to some bleeding.). This started yesterday. She has had nausea and abdominal pain. No vomiting, diarrhea or constipation. Treatment BODY SANDER: Took ibuprofen. PAST MEDICAL HX: Immunizations: up-to-date. SOCIAL HX: Former smoker. No alcohol use or drug use. No recent travel. No infectious disease exposure. No known contact with a sick individual. ABUSE ASSESSMENT: No report of abuse. SELF HARM ASSESSMENT: A self harm assessment was performed. The patient answered "no" to the question "Do you have thoughts of harming or killing yourself?" and "Have you recently had thoughts about harming or killing others?". FALL RISK ASSESSMENT: Fall risk assessment completed. No fall risk identified. NUTRITIONAL RISK ASSESSMENT: The nutritional risk assessment revealed no deficiencies. FUNCTIONAL ASSESSMENT: Functional assessment: no impairments noted. LEARNING NEEDS ASSESSMENT: The learning needs assessment revealed no barriers. SKIN INTEGRITY ASSESSMENT: Skin integrity risk assessment completed. No skin integrity risk identified. --18:33 Maggie Chavira R.N. PROBLEMS: Exposure To Infectious Disease. URI. UTI - Urinary Tract Infection. Pyelonephritis. Pelvic Inflammatory Disease. Dysmenorrhea. Contusion. Back Pain. Neck Pain. Tetanus Status. Abdominal Pain. Acute Pain. Bronchitis. Costochondritis. Vaginal Bleeding. Ectopic . Ureterolithiasis. Dental Pain. Abscess. Pharyngitis. Sinusitis. Migraine Headache. Pelvic Pain. Immunizations. Threatened . LNMP - Last Normal Menstrual Period. OB History. --18:31 Maggie Chavira R.N. Pelvic Inflammatory Disease [RuleOut]. UTI - Urinary Tract Infection [RuleOut]. Dental Pain [RuleOut]. --18:31 Maggie Chavira R.N. ADDITIONAL SURGERIES: Cone biopsy. Lithotripsy. --18:31 Maggie Chavira R.N. Interventions ID band on patient. --18:33 Maggie Chavira R.N. PHYSICAL ASSESSMENT GENERAL / NEURO / PSYCH: Alert. Oriented X 4. Appears in no acute distress. HEENT: Mucous membranes are pink. RESPIRATORY: Respirations not labored. Breath sounds within normal limits. CVS: Capillary refill less than 2 seconds. GI / : The patient has had nausea. Abdomen soft and nontender. Abdominal tenderness in the lower abdomen. SKIN: Skin is warm and dry. --18:34 Maggie Chavira R.N. NURSING PROGRESS NOTES The initial plan of care for this patient has been created This plan of care was discussed with the patient and family. Patient gowned. Warming measures: blanket applied. Reassurance given. Patient ID band checked for patient name, birthdate and medical record number: patient confirmed. Instructions provided to collect clean catch urine and patient verbalized understanding. Clean catch urine collected with return of yellow-colored clear urine; sample sent to lab for urinalysis. Specimen labeled in the presence of the patient. Two patient identifiers checked. Call light placed in reach. Side rails up x 1. Bed placed in lowest position. Brakes of bed on. Patient placed in chair. Brakes of chair on. --18:34 Maggie Chavira R.N. 18:35 03/13/16. BP: 144/99 taken on the left arm, via an automated monitor, while sitting. HR: 100. RR: 16. O2 saturation: 100%. Pain level now: 07/22. --18:35 Maggie Chavira R.N. Checked patient name and birthdate: patient confirmed. Blood samples drawn from the right antecubital space with syringe and butterfly by tech per protocol ; labeled in presence of the patient and sent to lab: rainbow set: cardiac enzymes (1st set). --19:50 Sebastien Desir. DISPOSITION / DISCHARGE Departure time: 1954 PM. Condition at departure: stable. No learning barriers present. Discharge instructions provided and reviewed. Reviewed medication(s) side effects, precautions, dosing and course information. Prescription(s) given to the patient. Patient verbalized understanding. Written instructions provided in Wolof. The patient was discharged by the physician fitness assistant. She was discharged home and accompanied by family. She left the Emergency Department ambulatory and via private vehicle. Parent driving. FALL RISK ASSESSMENT: Fall risk assessment completed. No fall risk identified. CLAUDINE COMA SCORE: [place] Coma Scale: 15- eyes open spontaneously (4); best verbal response- oriented x 4 (5); best motor response- obeys commands (6). --20:02 Maggie Chavira R.N. 19:50 03/13/16. BP: 134/89 (regular adult cuff) taken on the left arm, via an automated monitor, while sitting. HR: 73. RR: 16 (regular). O2 saturation: 100% on room air. Temp: 98.2 F. Pain level now: 06/21. --20:02 Maggie Chavira R.N. Locked/Released at 03/13/2016 20:03 by Maggie Chavira R.N.
--- NOTE | 2016-03-13 19:49 | ED CLINICAL REPORT ---
Clinical Report - Physicians/Mid Levels [facility] [address] [place] [address] 03/13/2016 18:20 Patient: ALEX WEBSTER Time Seen: 18:53 Mar 13 2016. Arrived- By private vehicle. Historian- patient. HISTORY OF PRESENT ILLNESS Chief Complaint: ABDOMINAL PAIN. This started just prior to arrival and is still present. It is described as "pain". (R abd pain/ flank pain, similar pain to nephrolithaisis in the past, possible hematuria. Pt with no emesis/ diarrhea. LMP about 6 weeks prior, neg at home u preg.). REVIEW OF SYSTEMS No difficulty with urination, pain with urination, fever, headache or chills. All systems otherwise negative, except as recorded above. PAST HISTORY Problems: Exposure To Infectious Disease. URI. UTI - Urinary Tract Infection. Pyelonephritis. Pelvic Inflammatory Disease. Dysmenorrhea. Contusion. Back Pain. Neck Pain. Tetanus Status. Abdominal Pain. Acute Pain. Bronchitis. Costochondritis. Vaginal Bleeding. Ectopic . Ureterolithiasis. Dental Pain. Abscess. Pharyngitis. Sinusitis. Migraine Headache. Pelvic Pain. Immunizations. Threatened . LNMP - Last Normal Menstrual Period. OB History. Additional Surgeries: Cone biopsy. Lithotripsy. Medications: None. Allergies: Tessalon. SOCIAL HISTORY Former smoker. No alcohol use or drug use. ADDITIONAL NOTES The nursing notes have been reviewed. PHYSICAL EXAM Vital Signs: 03/13/2016 19:50 BP: 134/89. HR: 73. RR: 16. O2 saturation: 100%. Temp: 98.2 F. Pain level now: 5/10. Appearance: Alert. No acute distress. Eyes: Eyes normal inspection. Neck: Normal inspection. Neck supple. CVS: Normal heart rate and rhythm. Heart sounds normal. Respiratory: No respiratory distress. No respiratory distress. Breath sounds normal. No accessory muscle use. Abdomen: Soft. No abdominal tenderness. (no reproducible examination are). Back: Normal inspection. Skin: Skin warm. Normal skin color. LABS, X-RAYS, AND EKG Laboratory Tests: UA-Culture if indicated: (RIMA: 03/13/2016 18:30) ( [facility] 03/13/2016 19:04) Final results Test Result Flag Units (Reference) URINE COLOR YELLOW URINE APPEARANCE CLEAR URINE GLUCOSE NEGATIVE (NEGATIVE) URINE BILIRUBIN NEGATIVE (NEGATIVE) URINE KETONE NEGATIVE (NEGATIVE) URINE SPECIFIC GRAVITY 1.015 (1.010-1.030) URINE PH 8.5 H (5.0-8.0) URINE PROTEIN NEGATIVE (NEGATIVE) URINE UROBILINOGEN 0.2 EU/dL (0.2-1.0) URINE NITRITE NEGATIVE (NEGATIVE) URINE BLOOD NEGATIVE (NEGATIVE) URINE LEUK ESTERASE NEGATIVE (NEGATIVE) URINE RBC NONE SEEN rbc/hpf (0-1) URINE WBC 0-1 wbc/hpf (0-1) URINE EPITHELIAL CELLS 1-3 EPI/hpf (0-5) URINE BACTERIA NONE SEEN (NONE SEEN) URINE COMMENT CULT NOT INDICATED URINE CULTURES ARE SET-UP BASED ON THE FOLLOWING CRITERIA:POSITIVE NITRITEPOSITIVE LEUKOCYTE ESTERASEGREATER THAN 10 WHITE BLOOD CELLSMODERATE (2+) OR GREATER BACTERIA Urine: (RIMA: 03/13/2016 18:30) ( [facility] 03/13/2016 18:56) Final results Test Result Flag Units (Reference) URINE NEGATIVE CBC w Diff: (RIMA: 03/13/2016 19:10) ( [facility] 03/13/2016 19:19) Final results Test Result Flag Units (Reference) WHITE BLOOD COUNT 7.4 K/uL (4.5-11.5) RED BLOOD COUNT 4.46 M/uL (4.00-5.20) HEMOGLOBIN 12.4 gm/dL (12.0-16.0) HEMATOCRIT 38.3 % (36.0-46.0) MEAN CELL VOLUME 86 fL (80-100) MEAN CORPUSCULAR HGB 28 pg (26-34) MEAN CORPUSCULAR HGB CONC 32 g/dL (31-37) RED CELL DISTRIBUTION WIDTH 14.6 % (11.6-14.8) PLATELET COUNT 206 K/uL (150-400) NEUTROPHIL % 66.8 % (50-75) LYMPH % 26.2 % (25-40) MONO % 5.9 % (3-14) EOSINOPHIL % 0.7 % (0-4) BASOPHIL % 0.4 % (0-2) CMP: (RIMA: 03/13/2016 19:10) ( MsgRcvd 03/13/2016 19:29) Final results Test Result Flag Units (Reference) GLUCOSE 90 mg/dL (70-110) BUN 10 mg/dL (7-18) CREATININE 0.6 mg/dL (0.6-1.3) Estimated GFR >60 mL/min Estimated GFR- >60 mL/min Note: Persistent reduction over 3 months in eGFR<60 mL/min/1.73 m2 defines CKD. Patients with eGFR values>=60 mL/min/1.73 m2 may also have CKD if evidence ofpersistent proteinuria. Additional information may be foundat www.kidney.org. SODIUM 142 mmol/L (136-145) POTASSIUM 3.6 mmol/L (3.5-5.1) CHLORIDE 108 H mmol/L (98-107) CARBON DIOXIDE 28 mmol/L (21-32) CALCIUM 8.5 mg/dL (8.5-10.1) TOTAL PROTEIN 7.1 g/dL (6.4-8.2) ALBUMIN 3.9 g/dL (3.3-5.0) BILIRUBIN, TOTAL 0.2 mg/dL (0.0-1.0) ALKALINE PHOSPHATASE 67 U/L (46-116) AST (SGOT) 14 L U/L (15-37) ALT (SGPT) 23 U/L (12-78) . PROGRESS AND PROCEDURES Course of Care: During the time in the ED, the following DDX were considered: acute surgical abdomen, hemodynamic or metabolic instability, dehydration, gastroenteritis-viral, food borne, or bacterial, food intolerance, irritable or inflammatory bowel, infection, sepsis. Here in er with salo form with [facility] er visits/ [facility], will forego ct at this time, will tx for possible presumptive nephrolithiasis with hydration, and tramadol. Pt otherwise stable and no signs of acute surgical abdome. 03/13/2016 19:50 BP: 134/89. HR: 73. RR: 16. O2 saturation: 100%. Temp: 98.2 F. Pain level now: 5/10. Patient is stable. Physical exam findings are improved. Patient/family counseled. Disposition: Discharged. Condition: good. CLINICAL IMPRESSION Acute abdominal pain of unknown cause. Acute right flank pain INSTRUCTIONS Strenuous activity allowed. Do not return to work. Drink plenty of fluids. (presumed possible kidney stone Follow up with your urology or regular DR). Prescription Medications: Zofran (orally disintegrating tablets) 4 mg: take 1 orally every 6 hours for 3 days as needed for nausea. No refill. Substitution is permissible. Ultram 50 mg: take 1 orally every 6 hours for 3 days, as needed for pain. Dispense ten (10). No refills. Substitution is permissible. Follow-up: Follow up with your doctor in three days. (Electronically signed by aTnya Ryan P.A.-C 03/13/2016 20:17)
--- NOTE | 2016-03-13 19:49 | ED ORDER SUMMARY ---
..... Patient: ALEX WEBSTER OrderSheet [facility] VisitID: [id number] [place] [address] 35y, F Registration Date/Time: 03/13/2016 ORDER SHEET Weight: 77.1 kg (stated) Allergies: Tessalon GENERAL ORDERS: UA-Culture if indicated Urgent (18:35 03/13/2016 EKoroleva P.A.-C) (Ack 18:43 LTapper) (20:03 EHassan R.N.) Urine Urgent (18:35 03/13/2016 EKoroleva P.A.-C) (Ack 18:43 LTapper) (20:03 EHassan R.N.) CBC w Diff Urgent (19:00 03/13/2016 EKoroleva P.A.-C) (Ack 19:23 LMuller) (19:23 LMuller) CMP Urgent (19:00 03/13/2016 EKoroleva P.A.-C) (Ack 19:23 LMuller) (19:23 LMuller) MEDICATION ORDERS: IV FLUIDS: ORDER SHEET NOTES: [Electronically signed by Maggie Chavira R.N. (20:03 03/13/2016)] [Electronically signed by Tanya Ryan P.A.-C (20:17 03/13/2016)] [Electronically locked/signed by Maggie Chavira R.N. (20:03 03/13/2016)]
--- NOTE | 2016-03-13 19:49 | ED ORDER SUMMARY ---
..... Patient: ALEX WEBSTER OrderSheet [facility] VisitID: [id number] [place] [address] 35y, F Registration Date/Time: 03/13/2016 ORDER SHEET Weight: 77.1 kg (stated) Allergies: Tessalon GENERAL ORDERS: UA-Culture if indicated Urgent (18:35 03/13/2016 EKoroleva P.A.-C) (Ack 18:43 LTapper) (20:03 EHassan R.N.) Urine Urgent (18:35 03/13/2016 EKoroleva P.A.-C) (Ack 18:43 LTapper) (20:03 EHassan R.N.) CBC w Diff Urgent (19:00 03/13/2016 EKoroleva P.A.-C) (Ack 19:23 LMuller) (19:23 LMuller) CMP Urgent (19:00 03/13/2016 EKoroleva P.A.-C) (Ack 19:23 LMuller) (19:23 LMuller) MEDICATION ORDERS: IV FLUIDS: ORDER SHEET NOTES: [Electronically signed by Maggie Chavira R.N. (20:03 03/13/2016)] [Electronically signed by Tanya Ryan P.A.-C (20:17 03/13/2016)] [Electronically locked/signed by Maggie Chavira R.N. (20:03 03/13/2016)]
--- NOTE | 2016-03-13 20:17 | ED MED RECONCILIATION SUMMARY ---
Patient: ALEX WEBSTER Medication Reconciliation Report [facility] VisitID: [id number] [address] [place] [address] 35y, F Registration Date/Time: 03/13/2016 Weight: 77.1 kg Height/Length: 67 in. BMI: 26.6 ALLERGIES: Tessalon The patient's Home Medications are listed below: NONE. The source(s) of the original Home Medication information: patient The following Medications were given to the patient in the Emergency Department: None. The following Medications were prescribed to the patient: Zofran (orally disintegrating tablets) 4 mg: take 1 orally every 6 hours for 3 days as needed for nausea. No refill. Substitution is permissible. -- Tanya Ryan, P.A.-C Ultram 50 mg: take 1 orally every 6 hours for 3 days, as needed for pain. Dispense ten (10). No refills. Substitution is permissible. -- Tanya Ryan, P.A.-C
--- NOTE | 2016-03-13 20:17 | ED DISCHARGE INSTRUCTIONS ---
Patient: ALEX WEBSTER General Instructions [facility] VisitID: [id number] [place] [address] 35y, F Registration Date/Time: 03/13/2016 Acute abdominal pain of unknown cause. Acute right flank pain INSTRUCTIONS Strenuous activity allowed. Do not return to work. Drink plenty of fluids. (presumed possible kidney stone Follow up with your urology or regular DR). Prescription Medications: Zofran (orally disintegrating tablets) 4 mg: take 1 orally every 6 hours for 3 days as needed for nausea. No refill. Substitution is permissible. Ultram 50 mg: take 1 orally every 6 hours for 3 days, as needed for pain. Dispense ten (10). No refills. Substitution is permissible. Follow-up: Follow up with your doctor in three days. ADDITIONAL INFORMATION Symptoms With Uncertain Cause [Adult] Based on the exam and any tests that were performed today, the exact cause of your symptoms is not certain. While your condition does not seem serious, the signs of a serious problem may take more time to appear. Therefore, it is important for you to watch for any new symptoms or worsening of your condition.Follow up with your doctor or this facility, as directed.A repeat physical exam or additional testing at a later time may uncover a cause for your symptoms that is not evident today. Home Care: Resume your usual activities and diet when this feels comfortable to do so. Follow Up with your doctor, or as advised by our staff.Contact your doctor sooner if your symptoms do not begin to improve in the next few days. [NOTE: If you had an x-ray, CT scan, ultrasound, or ECG (electrocardiogram), it will be reviewed by a specialist. You will be notified of any new findings that may affect your care.] Get Prompt Medical Attention if any of the following occur: Current symptoms get worse New symptoms appear Flank Pain[Uncertain Cause] The flank is the area between the upper abdomen and the back. Pain here is often related to the kidneyan infection or a kidney stone. Other causes of flank pain include spinal arthritis, pinched nerve from a disk injury, back muscle strain or spasm. The cause of your flank pain is not certain and further tests may be needed. Home Care: You may use acetaminophen (Tylenol) or ibuprofen (Motrin, Advil) to control pain, unless another medicine was prescribed. [NOTE: If you have chronic liver or kidney disease or ever had a stomach ulcer or GI bleeding, talk with your doctor before using these medicines.] If the cause of your pain is coming from the muscles, ice or heat may give relief. During the first two days after injury, apply an ICE PACK to the painful area for 20 minutes every 2-4 hours. This will reduce swelling and pain. HEAT (hot shower, hot bath or heating pad) works well for muscle spasm. You can start with ice, then switch to heat after two days. Some patients feel best alternating ice and heat treatments. Use the one method that feels the best to you. Follow Up with your doctor or as advised by our staff for further evaluation if your symptoms are not improving over the next few days. Return Promptly or contact your doctor if any of the following occur: Repeated vomiting Fever of 100.4F (38C) or higher, or as directed by your healthcare provider Increasing flank pain Pain that spreads to the front of the abdomen Dizziness, weakness or fainting Blood in your urine Burning with urination or frequent urination Increasing pain in the leg Numbness or weakness in the leg Ondansetron Hydrochloride Oral tablet What is this medicine? ONDANSETRON (on ALLYSON se sasha) is used to treat nausea and vomiting caused by chemotherapy. It is also used to prevent or treat nausea and vomiting after surgery. How should I use this medicine? Take this medicine by mouth with a glass of water. Follow the directions on your prescription label. Take your doses at regular intervals. Do not take your medicine more often than directed. Talk to your sales representative marine supplies regarding the use of this medicine in children. Special care may be needed. What side effects may I notice from receiving this medicine? Side effects that you should report to your doctor or health healthcare economics manager as soon as possible: allergic reactions like skin rash, itching or hives, swelling of the face, lips or tongue breathing problems dizziness fast or irregular heartbeat feeling faint or lightheaded, falls fever and chills swelling of the hands or feet tightness in the chest Side effects that usually do not require medical attention (report to your doctor or health healthcare economics manager if they continue or are bothersome): constipation or diarrhea headache What may interact with this medicine? Do not take this medicine with any of the following medications: -apomorphine -cisapride -dofetilide -dronedarone -pimozide -thioridazine -ziprasidone This medicine may also interact with the following medications: -carbamazepine -phenytoin -rifampicin -tramadol -other medicines that prolong the QT interval (cause an abnormal heart rhythm) What if I miss a dose? If you miss a dose, take it as soon as you can. If it is almost time for your next dose, take only that dose. Do not take double or extra doses. Where should I keep my medicine? Keep out of the reach of children. Store between 2 and 30 degrees C (36 and 86 degrees F). Throw away any unused medicine after the expiration date. What should I tell my health care provider before I take this medicine? They need to know if you have any of these conditions: heart disease history of irregular heartbeat liver disease low levels of magnesium or potassium in the blood an unusual or allergic reaction to ondansetron, granisetron, other medicines, foods, dyes, or preservatives or trying to get breast-feeding What should I watch for while using this medicine? Check with your doctor or health healthcare economics manager right away if you have any sign of an allergic reaction. You have been given the following additional information: Symptoms With Uncertain Cause Flank Pain, Uncertain Cause Ondansetron Hydrochloride Oral tablet Strenuous activity allowed. Do not return to work. (Electronically signed by Tanya Ryan P.A.-C 03/13/2016 20:17)
--- NOTE | 2016-03-13 20:17 | ED DISCHARGE INSTRUCTIONS ---
Patient: ALEX WEBSTER General Instructions [facility] VisitID: [id number] [place] [address] 35y, F Registration Date/Time: 03/13/2016 Acute abdominal pain of unknown cause. Acute right flank pain INSTRUCTIONS Strenuous activity allowed. Do not return to work. Drink plenty of fluids. (presumed possible kidney stone Follow up with your urology or regular DR). Prescription Medications: Zofran (orally disintegrating tablets) 4 mg: take 1 orally every 6 hours for 3 days as needed for nausea. No refill. Substitution is permissible. Ultram 50 mg: take 1 orally every 6 hours for 3 days, as needed for pain. Dispense ten (10). No refills. Substitution is permissible. Follow-up: Follow up with your doctor in three days. ADDITIONAL INFORMATION Symptoms With Uncertain Cause [Adult] Based on the exam and any tests that were performed today, the exact cause of your symptoms is not certain. While your condition does not seem serious, the signs of a serious problem may take more time to appear. Therefore, it is important for you to watch for any new symptoms or worsening of your condition.Follow up with your doctor or this facility, as directed.A repeat physical exam or additional testing at a later time may uncover a cause for your symptoms that is not evident today. Home Care: Resume your usual activities and diet when this feels comfortable to do so. Follow Up with your doctor, or as advised by our staff.Contact your doctor sooner if your symptoms do not begin to improve in the next few days. [NOTE: If you had an x-ray, CT scan, ultrasound, or ECG (electrocardiogram), it will be reviewed by a specialist. You will be notified of any new findings that may affect your care.] Get Prompt Medical Attention if any of the following occur: Current symptoms get worse New symptoms appear Flank Pain[Uncertain Cause] The flank is the area between the upper abdomen and the back. Pain here is often related to the kidneyan infection or a kidney stone. Other causes of flank pain include spinal arthritis, pinched nerve from a disk injury, back muscle strain or spasm. The cause of your flank pain is not certain and further tests may be needed. Home Care: You may use acetaminophen (Tylenol) or ibuprofen (Motrin, Advil) to control pain, unless another medicine was prescribed. [NOTE: If you have chronic liver or kidney disease or ever had a stomach ulcer or GI bleeding, talk with your doctor before using these medicines.] If the cause of your pain is coming from the muscles, ice or heat may give relief. During the first two days after injury, apply an ICE PACK to the painful area for 20 minutes every 2-4 hours. This will reduce swelling and pain. HEAT (hot shower, hot bath or heating pad) works well for muscle spasm. You can start with ice, then switch to heat after two days. Some patients feel best alternating ice and heat treatments. Use the one method that feels the best to you. Follow Up with your doctor or as advised by our staff for further evaluation if your symptoms are not improving over the next few days. Return Promptly or contact your doctor if any of the following occur: Repeated vomiting Fever of 100.4F (38C) or higher, or as directed by your healthcare provider Increasing flank pain Pain that spreads to the front of the abdomen Dizziness, weakness or fainting Blood in your urine Burning with urination or frequent urination Increasing pain in the leg Numbness or weakness in the leg Ondansetron Hydrochloride Oral tablet What is this medicine? ONDANSETRON (on ALLYSON se sasha) is used to treat nausea and vomiting caused by chemotherapy. It is also used to prevent or treat nausea and vomiting after surgery. How should I use this medicine? Take this medicine by mouth with a glass of water. Follow the directions on your prescription label. Take your doses at regular intervals. Do not take your medicine more often than directed. Talk to your weighbridge operator regarding the use of this medicine in children. Special care may be needed. What side effects may I notice from receiving this medicine? Side effects that you should report to your doctor or health career development coordinator as soon as possible: allergic reactions like skin rash, itching or hives, swelling of the face, lips or tongue breathing problems dizziness fast or irregular heartbeat feeling faint or lightheaded, falls fever and chills swelling of the hands or feet tightness in the chest Side effects that usually do not require medical attention (report to your doctor or health career development coordinator if they continue or are bothersome): constipation or diarrhea headache What may interact with this medicine? Do not take this medicine with any of the following medications: -apomorphine -cisapride -dofetilide -dronedarone -pimozide -thioridazine -ziprasidone This medicine may also interact with the following medications: -carbamazepine -phenytoin -rifampicin -tramadol -other medicines that prolong the QT interval (cause an abnormal heart rhythm) What if I miss a dose? If you miss a dose, take it as soon as you can. If it is almost time for your next dose, take only that dose. Do not take double or extra doses. Where should I keep my medicine? Keep out of the reach of children. Store between 2 and 30 degrees C (36 and 86 degrees F). Throw away any unused medicine after the expiration date. What should I tell my health care provider before I take this medicine? They need to know if you have any of these conditions: heart disease history of irregular heartbeat liver disease low levels of magnesium or potassium in the blood an unusual or allergic reaction to ondansetron, granisetron, other medicines, foods, dyes, or preservatives or trying to get breast-feeding What should I watch for while using this medicine? Check with your doctor or health career development coordinator right away if you have any sign of an allergic reaction. You have been given the following additional information: Symptoms With Uncertain Cause Flank Pain, Uncertain Cause Ondansetron Hydrochloride Oral tablet Strenuous activity allowed. Do not return to work. (Electronically signed by Tanya Ryan P.A.-C 03/13/2016 20:17)
--- NOTE | 2016-03-13 20:17 | ED MAR SUMMARY ---
..... Medication Administration Record [facility] [address] [place], [place] [id number] Patient: ALEX WEBSTER Victorino Visit ID: [id number] 35y, F Weight: 77.1 kg Height/Length: 67 in BMI: 26.6 ALLERGIES: Tessalon
--- NOTE | 2016-03-13 20:17 | ED MAR SUMMARY ---
..... Medication Administration Record [facility] [address] [place], [place] [id number] Patient: ALEX WEBSTER Victorino Visit ID: [id number] 35y, F Weight: 77.1 kg Height/Length: 67 in BMI: 26.6 ALLERGIES: Tessalon
--- NOTE | 2016-03-13 20:17 | ED MED RECONCILIATION SUMMARY ---
Patient: ALEX WEBSTER Medication Reconciliation Report Located [facility] VisitID: [id number] [address] [place] [address] 35y, F Registration Date/Time: 03/13/2016 Weight: 77.1 kg Height/Length: 67 in. BMI: 26.6 ALLERGIES: Tessalon The patient's Home Medications are listed below: NONE. The source(s) of the original Home Medication information: patient The following Medications were given to the patient in the Emergency Department: None. The following Medications were prescribed to the patient: Zofran (orally disintegrating tablets) 4 mg: take 1 orally every 6 hours for 3 days as needed for nausea. No refill. Substitution is permissible. -- Tanya Ryan, P.A.-C Ultram 50 mg: take 1 orally every 6 hours for 3 days, as needed for pain. Dispense ten (10). No refills. Substitution is permissible. -- Tanya Ryan, P.A.-C
== END 2016-03-13 19:55 | disposition home or self-care (01) ==
LOC: ED SRH 18:19
DX: R10.9 Unspecified abdominal pain (principal); Z87.442 Personal history of urinary calculi; Z87.891 Personal history of nicotine dependence; Z88.8 Allergy status to other drugs, medicaments and biological substances
CPT/HCPCS: 90004; 90100; 93070; 95059

== ENCOUNTER 2016-04-03 00:23 | Emergency (ER) | payer OTHER ==
--- NOTE | 2016-04-03 01:32 | ED CLINICAL REPORT ---
Clinical Report - Physicians/Mid Levels [facility] [address] [place] [address] 04/03/2016 0:22 Patient: ALEX WEBSTER Time Seen: 00:41. Arrived- By private vehicle. Historian- patient. HISTORY OF PRESENT ILLNESS Chief Complaint: FLANK PAIN. This started yesterday and still present. It was gradual in onset and has been constant and waxing/waning. The symptoms are described as moderate. The patient has had mild, crampy pelvic pain. She has had crampy right-sided flank pain. The patient has had urinary frequency. Similar symptoms previously: Several times. Diagnosis: UTI. REVIEW OF SYSTEMS No chills, fever, sweats, calf pain or chest pain. No cough, difficulty breathing, pedal edema, palpitations or abdominal pain. No constipation, diarrhea, nausea or vomiting. All systems otherwise negative, except as recorded above. PAST HISTORY Problems: Flank Pain. Exposure To Infectious Disease. URI. UTI - Urinary Tract Infection. Pyelonephritis. Pelvic Inflammatory Disease. Dysmenorrhea. Contusion. Back Pain. Neck Pain. Abdominal Pain. Acute Pain. Bronchitis. Costochondritis. Vaginal Bleeding. Ectopic . Ureterolithiasis. Dental Pain. Abscess. Pharyngitis. Sinusitis. Migraine Headache. Pelvic Pain. Threatened . Additional Surgeries: Cone biopsy. Lithotripsy. Medications: None. Allergies: Tessalon. SOCIAL HISTORY Former smoker, end date 2014. No alcohol use or drug use. FAMILY HISTORY No significant family medical history. ADDITIONAL NOTES The nursing notes have been reviewed. PHYSICAL EXAM Vital Signs: 04/03/2016 00:37 BP: 141/101. HR: 93. RR: 100. O2 saturation: 100%. Temp: 98.3 F. Have been reviewed. Appearance: Alert. ENT: Pharynx normal. Neck: Neck supple. CVS: Heart sounds normal. Respiratory: No respiratory distress. Breath sounds normal. Abdomen: Soft and nontender. Bowel sounds normal. No organomegaly. No mass. Back: Mild CVA tenderness on the right. Normal external inspection. Skin: Skin warm and dry. Normal skin color. Normal skin turgor. Extremities: No calf tenderness. No lower extremity edema. LABS, X-RAYS, AND EKG Laboratory Tests: UA-Culture if indicated: (RIMA: 04/03/2016 00:34) ( [facility] 04/03/2016 01:02) IP Test Result Flag Units (Reference) URINE COLOR YELLOW URINE APPEARANCE CLEAR URINE GLUCOSE NEGATIVE (NEGATIVE) URINE BILIRUBIN NEGATIVE (NEGATIVE) URINE KETONE NEGATIVE (NEGATIVE) URINE SPECIFIC GRAVITY 1.020 (1.010-1.030) URINE PH 7.5 (5.0-8.0) URINE PROTEIN NEGATIVE (NEGATIVE) URINE UROBILINOGEN 1.0 EU/dL (0.2-1.0) URINE NITRITE POSITIVE (NEGATIVE) URINE BLOOD NEGATIVE (NEGATIVE) URINE LEUK ESTERASE POSITIVE (NEGATIVE) Urine: (RIMA: 04/03/2016 00:34) ( [facility] 04/03/2016 01:05) Final results Test Result Flag Units (Reference) URINE NEGATIVE CBC w Diff: (RIMA: 04/03/2016 00:34) ( [facility] 04/03/2016 01:01) Final results Test Result Flag Units (Reference) WHITE BLOOD COUNT 8.8 K/uL (4.5-11.5) RED BLOOD COUNT 4.48 M/uL (4.00-5.20) HEMOGLOBIN 12.4 gm/dL (12.0-16.0) HEMATOCRIT 37.9 % (36.0-46.0) MEAN CELL VOLUME 85 fL (80-100) MEAN CORPUSCULAR HGB 28 pg (26-34) MEAN CORPUSCULAR HGB CONC 33 g/dL (31-37) RED CELL DISTRIBUTION WIDTH 14.9 H % (11.6-14.8) PLATELET COUNT 294 K/uL (150-400) NEUTROPHIL % 56.0 % (50-75) LYMPH % 35.8 % (25-40) MONO % 6.0 % (3-14) EOSINOPHIL % 1.7 % (0-4) BASOPHIL % 0.5 % (0-2) CMP: (RIMA: 04/03/2016 00:34) ( MsgRcvd 04/03/2016 01:22) Final results Test Result Flag Units (Reference) GLUCOSE 75 mg/dL (70-110) BUN 14 mg/dL (7-18) CREATININE 0.6 mg/dL (0.6-1.3) Estimated GFR >60 mL/min Estimated GFR- >60 mL/min Note: Persistent reduction over 3 months in eGFR<60 mL/min/1.73 m2 defines CKD. Patients with eGFR values>=60 mL/min/1.73 m2 may also have CKD if evidence ofpersistent proteinuria. Additional information may be foundat www.kidney.org. SODIUM 140 mmol/L (136-145) POTASSIUM 3.3 L mmol/L (3.5-5.1) CHLORIDE 104 mmol/L (98-107) CARBON DIOXIDE 28 mmol/L (21-32) CALCIUM 8.8 mg/dL (8.5-10.1) TOTAL PROTEIN 7.2 g/dL (6.4-8.2) ALBUMIN 3.7 g/dL (3.3-5.0) BILIRUBIN, TOTAL 0.1 mg/dL (0.0-1.0) ALKALINE PHOSPHATASE 76 U/L (46-116) AST (SGOT) 14 L U/L (15-37) ALT (SGPT) 23 U/L (12-78) LIPASE 185 U/L (73-393) AMYLASE 36 U/L (25-115) . PROGRESS AND PROCEDURES Course of Care: Patient is stable. Patient/family counseled. Old medical records reviewed. Disposition: Discharged. Condition: stable. CLINICAL IMPRESSION Acute urinary tract infection with pyelonephritis. INSTRUCTIONS Drink plenty of fluids. Warnings: Further evaluation is necessary. GENERAL WARNINGS: Return or contact your physician immediately if your condition worsens or changes unexpectedly, if not improving as expected, or if other problems arise. Prescription Medications: Cipro 500 mg: take 1 tab orally every 12 hours for 10 days. Dispense twenty (20). No refills. Substitution is permissible. Understanding of the discharge instructions verbalized by patient. Follow-up with: [facility], , , [address], , [place], [address] Follow up in five days. Call for the next available appointment. (Electronically signed by Eliel Ogden MD 04/05/2016 2:35)
--- NOTE | 2016-04-03 01:32 | ED NURSING NOTES ---
Clinical Report - Nurses [facility] [address] [place] [address] 04/03/2016 0:22 Patient: ALEX WEBSTER TRIAGE Triage time 00:37 Apr 03 2016. Acuity: LEVEL 3. Chief Complaint: (flank pain). --00:41 Tanvir Duarte R.N. 00:37 04/03/16. BP: 141/101. HR: 93. RR: 100. O2 saturation: 100%. Temp: 98.3 F. Pain level now 07/22. --00:41 Tanvir Duarte R.N. Weight: 72.5 kg stated. --00:40 Tanvir Duarte R.N.. Height/Length: 67 inches. BMI: 25.1. --00:40 Tanvir Duarte R.N. Medications None. --00:38 Tanvir Duarte R.N. Allergies Tessalon. --00:38 Tanvir Duarte R.N. History The patient has had nausea. SOCIAL HX: Smoker- current status unknown (quit two years ago). No alcohol use or drug use. --00:41 Tanvir Duarte R.N. PROBLEMS: Abdominal Pain. Acute Pain. Bronchitis. Costochondritis. Ectopic . Ureterolithiasis. Pharyngitis. --00:38 Tanvir Duarte R.N. ADDITIONAL SURGERIES: Cone biopsy. Lithotripsy. --00:38 Tanvir Duarte R.N. Interventions ID band on patient. To treatment room. --00:41 Tanvir Duarte R.N. PHYSICAL ASSESSMENT GENERAL / NEURO / PSYCH: Alert. Oriented X 4. Appears in no acute distress. RESPIRATORY: Respirations not labored. Breath sounds within normal limits. CVS: Normal sinus rhythm noted. Capillary refill less than 2 seconds. GI / : Abdomen soft and nontender. Bowel sounds within normal limits. SKIN: Skin is warm and dry. --01:09 Tanvir Duarte R.N. NURSING PROGRESS NOTES 00:50 04/03/2016 Site #1 started via IV in the right antecubital space with an 18g angiocath, with aseptic technique and good blood return; one attempt. Blood drawn: rainbow set. Labeled in the presence of the patient. Saline lock flushed with saline. --00:50 Tanvir Duarte R.N. Oxygen not administered. Pulse oximeter placed on patient. Patient gowned. Reassurance given. Call light placed in reach. Side rails up x 1. Bed placed in lowest position. ( Report to ). --01:09 Tanvir Duarte R.N. DISPOSITION / DISCHARGE 01:41 04/03/2016 Site #1 removed upon discharge. Catheter intact. Bandage applied. --01:41 Ino Barillas R.N. Condition at departure: improved. The goals identified in the patient's plan of care were met. No learning barriers present. Reviewed medication(s) side effects, precautions, dosing and course information. Prescription(s) given to the patient. Patient verbalized understanding. Written instructions provided in Turkish. The patient was discharged home and unaccompanied at time of discharge. She left the Emergency Department ambulatory and via private vehicle. Patient driving. FALL RISK ASSESSMENT: Fall risk assessment completed. No fall risk identified. --01:42 Ino Barillas R.N. 01:39 04/03/16. BP: 137/90. HR: 87. RR: 16. O2 saturation: 100%. Temp: 98.3 F. Pain level now: 0/10. --01:42 Ino Barillas R.N. Departure time: 0142 AM. --01:42 Ino Barillas R.N. Locked/Released at 04/03/2016 1:43 by Ino Barillas R.N.
--- NOTE | 2016-04-03 01:32 | ED CLINICAL REPORT ---
Clinical Report - Physicians/Mid Levels [facility] [address] [place] [address] 04/03/2016 0:22 Patient: ALEX WEBSTER Time Seen: 00:41. Arrived- By private vehicle. Historian- patient. HISTORY OF PRESENT ILLNESS Chief Complaint: FLANK PAIN. This started yesterday and still present. It was gradual in onset and has been constant and waxing/waning. The symptoms are described as moderate. The patient has had mild, crampy pelvic pain. She has had crampy right-sided flank pain. The patient has had urinary frequency. Similar symptoms previously: Several times. Diagnosis: UTI. REVIEW OF SYSTEMS No chills, fever, sweats, calf pain or chest pain. No cough, difficulty breathing, pedal edema, palpitations or abdominal pain. No constipation, diarrhea, nausea or vomiting. All systems otherwise negative, except as recorded above. PAST HISTORY Problems: Flank Pain. Exposure To Infectious Disease. URI. UTI - Urinary Tract Infection. Pyelonephritis. Pelvic Inflammatory Disease. Dysmenorrhea. Contusion. Back Pain. Neck Pain. Abdominal Pain. Acute Pain. Bronchitis. Costochondritis. Vaginal Bleeding. Ectopic . Ureterolithiasis. Dental Pain. Abscess. Pharyngitis. Sinusitis. Migraine Headache. Pelvic Pain. Threatened . Additional Surgeries: Cone biopsy. Lithotripsy. Medications: None. Allergies: Tessalon. SOCIAL HISTORY Former smoker, end date 2014. No alcohol use or drug use. FAMILY HISTORY No significant family medical history. ADDITIONAL NOTES The nursing notes have been reviewed. PHYSICAL EXAM Vital Signs: 04/03/2016 00:37 BP: 141/101. HR: 93. RR: 100. O2 saturation: 100%. Temp: 98.3 F. Have been reviewed. Appearance: Alert. ENT: Pharynx normal. Neck: Neck supple. CVS: Heart sounds normal. Respiratory: No respiratory distress. Breath sounds normal. Abdomen: Soft and nontender. Bowel sounds normal. No organomegaly. No mass. Back: Mild CVA tenderness on the right. Normal external inspection. Skin: Skin warm and dry. Normal skin color. Normal skin turgor. Extremities: No calf tenderness. No lower extremity edema. LABS, X-RAYS, AND EKG Laboratory Tests: UA-Culture if indicated: (RIMA: 04/03/2016 00:34) ( [facility] 04/03/2016 01:02) IP Test Result Flag Units (Reference) URINE COLOR YELLOW URINE APPEARANCE CLEAR URINE GLUCOSE NEGATIVE (NEGATIVE) URINE BILIRUBIN NEGATIVE (NEGATIVE) URINE KETONE NEGATIVE (NEGATIVE) URINE SPECIFIC GRAVITY 1.020 (1.010-1.030) URINE PH 7.5 (5.0-8.0) URINE PROTEIN NEGATIVE (NEGATIVE) URINE UROBILINOGEN 1.0 EU/dL (0.2-1.0) URINE NITRITE POSITIVE (NEGATIVE) URINE BLOOD NEGATIVE (NEGATIVE) URINE LEUK ESTERASE POSITIVE (NEGATIVE) Urine: (RIMA: 04/03/2016 00:34) ( [facility] 04/03/2016 01:05) Final results Test Result Flag Units (Reference) URINE NEGATIVE CBC w Diff: (RIMA: 04/03/2016 00:34) ( [facility] 04/03/2016 01:01) Final results Test Result Flag Units (Reference) WHITE BLOOD COUNT 8.8 K/uL (4.5-11.5) RED BLOOD COUNT 4.48 M/uL (4.00-5.20) HEMOGLOBIN 12.4 gm/dL (12.0-16.0) HEMATOCRIT 37.9 % (36.0-46.0) MEAN CELL VOLUME 85 fL (80-100) MEAN CORPUSCULAR HGB 28 pg (26-34) MEAN CORPUSCULAR HGB CONC 33 g/dL (31-37) RED CELL DISTRIBUTION WIDTH 14.9 H % (11.6-14.8) PLATELET COUNT 294 K/uL (150-400) NEUTROPHIL % 56.0 % (50-75) LYMPH % 35.8 % (25-40) MONO % 6.0 % (3-14) EOSINOPHIL % 1.7 % (0-4) BASOPHIL % 0.5 % (0-2) CMP: (RIMA: 04/03/2016 00:34) ( MsgRcvd 04/03/2016 01:22) Final results Test Result Flag Units (Reference) GLUCOSE 75 mg/dL (70-110) BUN 14 mg/dL (7-18) CREATININE 0.6 mg/dL (0.6-1.3) Estimated GFR >60 mL/min Estimated GFR- >60 mL/min Note: Persistent reduction over 3 months in eGFR<60 mL/min/1.73 m2 defines CKD. Patients with eGFR values>=60 mL/min/1.73 m2 may also have CKD if evidence ofpersistent proteinuria. Additional information may be foundat www.kidney.org. SODIUM 140 mmol/L (136-145) POTASSIUM 3.3 L mmol/L (3.5-5.1) CHLORIDE 104 mmol/L (98-107) CARBON DIOXIDE 28 mmol/L (21-32) CALCIUM 8.8 mg/dL (8.5-10.1) TOTAL PROTEIN 7.2 g/dL (6.4-8.2) ALBUMIN 3.7 g/dL (3.3-5.0) BILIRUBIN, TOTAL 0.1 mg/dL (0.0-1.0) ALKALINE PHOSPHATASE 76 U/L (46-116) AST (SGOT) 14 L U/L (15-37) ALT (SGPT) 23 U/L (12-78) LIPASE 185 U/L (73-393) AMYLASE 36 U/L (25-115) . PROGRESS AND PROCEDURES Course of Care: Patient is stable. Patient/family counseled. Old medical records reviewed. Disposition: Discharged. Condition: stable. CLINICAL IMPRESSION Acute urinary tract infection with pyelonephritis. INSTRUCTIONS Drink plenty of fluids. Warnings: Further evaluation is necessary. GENERAL WARNINGS: Return or contact your physician immediately if your condition worsens or changes unexpectedly, if not improving as expected, or if other problems arise. Prescription Medications: Cipro 500 mg: take 1 tab orally every 12 hours for 10 days. Dispense twenty (20). No refills. Substitution is permissible. Understanding of the discharge instructions verbalized by patient. Follow-up with: [facility], , , [address], , [place], [address] Follow up in five days. Call for the next available appointment. (Electronically signed by Eliel Ogden MD 04/05/2016 2:35)
--- NOTE | 2016-04-03 01:32 | ED ORDER SUMMARY ---
..... Patient: ALEX WEBSTER OrderSheet [facility] VisitID: [id number] [address] [place] [address] 35y, F Registration Date/Time: 04/03/2016 ORDER SHEET Weight: 72.5 kg (stated) Allergies: Tessalon GENERAL ORDERS: UA-Culture if indicated Urgent (00:36 04/03/2016 Abbie DICKEY) (Ack 0:40 [facility] [employer] [facility] Seasonal) (0:54 [facility] [employer] Sales Associate Seasonal) Urine Urgent (00:36 04/03/2016 Abbie DICKEY) (Ack 0:40 [facility] [employer] Sales Associate Seasonal) (0:54 [facility] [employer] Sales Associate Seasonal) CBC w Diff Urgent (00:50 04/03/2016 DBeyer R.N. per protocol) (Ack 0:51 [facility] [employer] Sales Associate Seasonal) (0:54 [facility] [employer] Sales Associate Seasonal) CMP Urgent (00:50 04/03/2016 DBeyer R.N. per protocol) (Ack 0:51 [facility] [employer] Sales Associate Seasonal) (0:54 [facility] Retail Sales Associate Seasonal) Lipase Urgent (00:50 04/03/2016 DBeyer R.N. per protocol) (Ack 0:51 [facility] [employer] Sales Associate Seasonal) (0:54 [facility] Retail Sales Associate Seasonal) Amylase Urgent (00:50 04/03/2016 DBeyer R.N. per protocol) (Ack 0:51 [facility] [employer] Sales Associate Seasonal) (0:54 [facility] Retail Sales Associate Seasonal) MEDICATION ORDERS: IV FLUIDS: IV Saline Lock (00:50 04/03/2016 DBeyer R.N. per protocol) (0:50 DBeyer R.N.) ORDER SHEET NOTES: [Electronically signed by Ino Barillas R.N. (:43 04/03/2016)] [Electronically signed by Eliel Ogden MD (02:35 04/05/2016)] [Electronically locked/signed by Ino Barillas R.N. (:43 04/03/2016)]
--- NOTE | 2016-04-03 01:32 | ED NURSING NOTES ---
Clinical Report - Nurses [facility] [address] [place] [address] 04/03/2016 0:22 Patient: ALEX WEBSTER TRIAGE Triage time 00:37 Apr 03 2016. Acuity: LEVEL 3. Chief Complaint: (flank pain). --00:41 Tanvir Duarte R.N. 00:37 04/03/16. BP: 141/101. HR: 93. RR: 100. O2 saturation: 100%. Temp: 98.3 F. Pain level now 07/22. --00:41 Tanvir Duarte R.N. Weight: 72.5 kg stated. --00:40 Tanvir Duarte R.N.. Height/Length: 67 inches. BMI: 25.1. --00:40 Tanvir Duarte R.N. Medications None. --00:38 aTnvir Duarte R.N. Allergies Tessalon. --00:38 Tanvir Duarte R.N. History The patient has had nausea. SOCIAL HX: Smoker- current status unknown (quit two years ago). No alcohol use or drug use. --00:41 Tanvir Duarte R.N. PROBLEMS: Abdominal Pain. Acute Pain. Bronchitis. Costochondritis. Ectopic . Ureterolithiasis. Pharyngitis. --00:38 Tanvir Duarte R.N. ADDITIONAL SURGERIES: Cone biopsy. Lithotripsy. --00:38 Tanvir Duarte R.N. Interventions ID band on patient. To treatment room. --00:41 Tanvir Duarte R.N. PHYSICAL ASSESSMENT GENERAL / NEURO / PSYCH: Alert. Oriented X 4. Appears in no acute distress. RESPIRATORY: Respirations not labored. Breath sounds within normal limits. CVS: Normal sinus rhythm noted. Capillary refill less than 2 seconds. GI / : Abdomen soft and nontender. Bowel sounds within normal limits. SKIN: Skin is warm and dry. --01:09 Tanvir Duarte R.N. NURSING PROGRESS NOTES 00:50 04/03/2016 Site #1 started via IV in the right antecubital space with an 18g angiocath, with aseptic technique and good blood return; one attempt. Blood drawn: rainbow set. Labeled in the presence of the patient. Saline lock flushed with saline. --00:50 Tanvir Duarte R.N. Oxygen not administered. Pulse oximeter placed on patient. Patient gowned. Reassurance given. Call light placed in reach. Side rails up x 1. Bed placed in lowest position. ( Report to ). --01:09 Tanvir Duarte R.N. DISPOSITION / DISCHARGE 01:41 04/03/2016 Site #1 removed upon discharge. Catheter intact. Bandage applied. --01:41 Ino Barillas R.N. Condition at departure: improved. The goals identified in the patient's plan of care were met. No learning barriers present. Reviewed medication(s) side effects, precautions, dosing and course information. Prescription(s) given to the patient. Patient verbalized understanding. Written instructions provided in German. The patient was discharged home and unaccompanied at time of discharge. She left the Emergency Department ambulatory and via private vehicle. Patient driving. FALL RISK ASSESSMENT: Fall risk assessment completed. No fall risk identified. --01:42 Ino Barillas R.N. 01:39 04/03/16. BP: 137/90. HR: 87. RR: 16. O2 saturation: 100%. Temp: 98.3 F. Pain level now: 0/10. --01:42 Ino Barillas R.N. Departure time: 0142 AM. --01:42 Ino Barillas R.N. Locked/Released at 04/03/2016 1:43 by Ino Barillas R.N.
--- NOTE | 2016-04-03 01:32 | ED ORDER SUMMARY ---
..... Patient: ALEX WEBSTER OrderSheet [facility] VisitID: [id number] [address] [place] [address] 35y, F Registration Date/Time: 04/03/2016 ORDER SHEET Weight: 72.5 kg (stated) Allergies: Tessalon GENERAL ORDERS: UA-Culture if indicated Urgent (00:36 04/03/2016 Abbie DICKEY) (Ack 0:40 [facility] Phys[facility] Office Nurse) (0:54 [facility] Phys[facility] Office Nurse) Urine Urgent (00:36 04/03/2016 Abbie DICKEY) (Ack 0:40 [facility] Phys[facility] Office Nurse) (0:54 [facility] Phys[facility] Office Nurse) CBC w Diff Urgent (00:50 04/03/2016 DBeyer R.N. per protocol) (Ack 0:51 [facility] Phys[facility] Office Nurse) (0:54 [facility] Phys[facility] Office Nurse) CMP Urgent (00:50 04/03/2016 DBeyer R.N. per protocol) (Ack 0:51 [facility] Physician Office Nurse) (0:54 [facility] Physician Office Nurse) Lipase Urgent (00:50 04/03/2016 DBeyer R.N. per protocol) (Ack 0:51 [facility] Phys[facility] Office Nurse) (0:54 [facility] Physician Office Nurse) Amylase Urgent (00:50 04/03/2016 DBeyer R.N. per protocol) (Ack 0:51 [facility] Phys[facility] Office Nurse) (0:54 [facility] Physician Office Nurse) MEDICATION ORDERS: IV FLUIDS: IV Saline Lock (00:50 04/03/2016 DBeyer R.N. per protocol) (0:50 DBeyer R.N.) ORDER SHEET NOTES: [Electronically signed by Ino Barillas R.N. (:43 04/03/2016)] [Electronically signed by Eliel Ogden MD (02:35 04/05/2016)] [Electronically locked/signed by Ino Barillas R.N. (:43 04/03/2016)]
--- NOTE | 2016-04-05 02:35 | ED DISCHARGE INSTRUCTIONS ---
Patient: ALEX WEBSTER General Instructions [facility] VisitID: [id number] [address] [place] [address] 35y, F Registration Date/Time: 04/03/2016 Acute urinary tract infection with pyelonephritis. INSTRUCTIONS Drink plenty of fluids. Warnings: Further evaluation is necessary. GENERAL WARNINGS: Return or contact your physician immediately if your condition worsens or changes unexpectedly, if not improving as expected, or if other problems arise. Prescription Medications: Cipro 500 mg: take 1 tab orally every 12 hours for 10 days. Dispense twenty (20). No refills. Substitution is permissible. Understanding of the discharge instructions verbalized by patient. Follow-up with: [facility], , , [address], [place], [address] Follow up in five days. Call for the next available appointment. ADDITIONAL INFORMATION Bladder Infection,Female (Adult) A bladder infection ("cystitis" or "UTI") usually causes a constant urge to urinate and a burning when passing urine. Urine may be cloudy, smelly or dark. There may be pain in the lower abdomen. A bladder infection occurs when bacteria from the vaginal area enter the bladder opening (urethra). This can occur from sexual intercourse, wearing tight clothing, dehydration and other factors. Home Care: Drink lots of fluids (at least 6-8 glasses a day, unless you must restrict fluids for other medical reasons). This will force the medicine into your urinary system and flush the bacteria out of your body. Avoid sexual intercourse until your symptoms are gone. Avoid caffeine, alcohol and spicy foods. These can irritate the bladder. A bladder infection is treated with antibiotics. You may also be given Pyridium (generic = phenazopyridine) to reduce the burning sensation. This medicine will cause your urine to become a bright orange color. The orange urine may stain clothing. You may wear a pad or panty-liner to protect clothing. Preventing Future Infections: Always wipe from front to back after a bowel movement. Keep the genital area clean and dry. Drink plenty of fluids each day to avoid dehydration. Both sexual partners should wash before intercourse. Urinate right after intercourse to flush out the bladder. Wear cotton underwear and cotton-lined panty hose; avoid tight-fitting pants. If you are on control pills and are having frequent bladder infections, discuss with your doctor. Follow Up: Return to this facility or see your doctor if ALL symptoms are not gone after three days of treatment. Get Prompt Medical Attention if any of the following occur: Fever of 100.4F (38C) or higher, or as directed by your healthcare provider No improvement by the third day of treatment Increasing back or abdominal pain Repeated vomiting; unable to keep medicine down Weakness, dizziness or fainting Vaginal discharge Pain, redness or swelling in the labia (outer vaginal area) Ciprofloxacin Hydrochloride Oral tablet What is this medicine? CIPROFLOXACIN (sip bhavik FLOX a sin) is a quinolone antibiotic. It is used to treat certain kinds of bacterial infections. It will not work for colds, flu, or other viral infections. How should I use this medicine? Take this medicine by mouth with a glass of water. Follow the directions on the prescription label. Take your medicine at regular intervals. Do not take your medicine more often than directed. Take all of your medicine as directed even if you think your are better. Do not skip doses or stop your medicine early. You can take this medicine with food or on an empty stomach. It can be taken with a meal that contains dairy or calcium, but do not take it alone with a dairy product, like milk or yogurt or calcium-fortified juice. A special MedGuide will be given to you by the pharmacist with each prescription and refill. Be sure to read this information carefully each time. Talk to your grocery worker regarding the use of this medicine in children. Special care may be needed. What side effects may I notice from receiving this medicine? Side effects that you should report to your doctor or health home care provider as soon as possible: - allergic reactions like skin rash, itching or hives, swelling of the face, lips, or tongue - breathing problems - confusion, nightmares or hallucinations - feeling faint or lightheaded, falls - irregular heartbeat - joint, muscle or tendon pain or swelling - pain or trouble passing urine -persistent headache with or without blurred vision - redness, blistering, peeling or loosening of the skin, including inside the mouth - seizure - unusual pain, numbness, tingling, or weakness Side effects that usually do not require medical attention (report to your doctor or health home care provider if they continue or are bothersome): - diarrhea - nausea or stomach upset - white patches or sores in the mouth What may interact with this medicine? Do not take this medicine with any of the following medications: cisapride droperidol terfenadine tizanidine This medicine may also interact with the following medications: antacids caffeine cyclosporin didanosine (ddI) buffered tablets or powder medicines for diabetes medicines for inflammation like ibuprofen, naproxen methotrexate multivitamins omeprazole phenytoin probenecid sucralfate theophylline warfarin What if I miss a dose? If you miss a dose, take it as soon as you can. If it is almost time for your next dose, take only that dose. Do not take double or extra doses. Where should I keep my medicine? Keep out of the reach of children. Store at room temperature below 30 degrees C (86 degrees F). Keep container tightly closed. Throw away any unused medicine after the expiration date. What should I tell my health care provider before I take this medicine? They need to know if you have any of these conditions: -bone problems -cerebral disease -joint problems -irregular heartbeat -kidney disease -liver disease -myasthenia gravis -seizure disorder -tendon problems -an unusual or allergic reaction to ciprofloxacin, other antibiotics or medicines, foods, dyes, or preservatives - or trying to get -breast-feeding What should I watch for while using this medicine? Tell your doctor or health home care provider if your symptoms do not improve. Do not treat diarrhea with over the counter products. Contact your doctor if you have diarrhea that lasts more than 2 days or if it is severe and watery. You may get drowsy or dizzy. Do not drive, use machinery, or do anything that needs mental alertness until you know how this medicine affects you. Do not stand or sit up quickly, especially if you are an older patient. This reduces the risk of dizzy or fainting spells. This medicine can make you more sensitive to the sun. Keep out of the sun. If you cannot avoid being in the sun, wear protective clothing and use sunscreen. Do not use sun lamps or tanning beds/booths. Avoid antacids, aluminum, calcium, iron, magnesium, and zinc products for 6 hours before and 2 hours after taking a dose of this medicine. You have been given the following additional information: Bladder Infection, Female (Adult) Ciprofloxacin Hydrochloride Oral tablet (Electronically signed by Eliel Ogden MD 04/05/2016 2:35)
--- NOTE | 2016-04-05 02:35 | ED DISCHARGE INSTRUCTIONS ---
Patient: ALEX WEBSTER General Instructions [facility] VisitID: [id number] [address] [place] [address] 35y, F Registration Date/Time: 04/03/2016 Acute urinary tract infection with pyelonephritis. INSTRUCTIONS Drink plenty of fluids. Warnings: Further evaluation is necessary. GENERAL WARNINGS: Return or contact your physician immediately if your condition worsens or changes unexpectedly, if not improving as expected, or if other problems arise. Prescription Medications: Cipro 500 mg: take 1 tab orally every 12 hours for 10 days. Dispense twenty (20). No refills. Substitution is permissible. Understanding of the discharge instructions verbalized by patient. Follow-up with: [facility], , , [address], [place], [address] Follow up in five days. Call for the next available appointment. ADDITIONAL INFORMATION Bladder Infection,Female (Adult) A bladder infection ("cystitis" or "UTI") usually causes a constant urge to urinate and a burning when passing urine. Urine may be cloudy, smelly or dark. There may be pain in the lower abdomen. A bladder infection occurs when bacteria from the vaginal area enter the bladder opening (urethra). This can occur from sexual intercourse, wearing tight clothing, dehydration and other factors. Home Care: Drink lots of fluids (at least 6-8 glasses a day, unless you must restrict fluids for other medical reasons). This will force the medicine into your urinary system and flush the bacteria out of your body. Avoid sexual intercourse until your symptoms are gone. Avoid caffeine, alcohol and spicy foods. These can irritate the bladder. A bladder infection is treated with antibiotics. You may also be given Pyridium (generic = phenazopyridine) to reduce the burning sensation. This medicine will cause your urine to become a bright orange color. The orange urine may stain clothing. You may wear a pad or panty-liner to protect clothing. Preventing Future Infections: Always wipe from front to back after a bowel movement. Keep the genital area clean and dry. Drink plenty of fluids each day to avoid dehydration. Both sexual partners should wash before intercourse. Urinate right after intercourse to flush out the bladder. Wear cotton underwear and cotton-lined panty hose; avoid tight-fitting pants. If you are on control pills and are having frequent bladder infections, discuss with your doctor. Follow Up: Return to this facility or see your doctor if ALL symptoms are not gone after three days of treatment. Get Prompt Medical Attention if any of the following occur: Fever of 100.4F (38C) or higher, or as directed by your healthcare provider No improvement by the third day of treatment Increasing back or abdominal pain Repeated vomiting; unable to keep medicine down Weakness, dizziness or fainting Vaginal discharge Pain, redness or swelling in the labia (outer vaginal area) Ciprofloxacin Hydrochloride Oral tablet What is this medicine? CIPROFLOXACIN (sip bhavik FLOX a sin) is a quinolone antibiotic. It is used to treat certain kinds of bacterial infections. It will not work for colds, flu, or other viral infections. How should I use this medicine? Take this medicine by mouth with a glass of water. Follow the directions on the prescription label. Take your medicine at regular intervals. Do not take your medicine more often than directed. Take all of your medicine as directed even if you think your are better. Do not skip doses or stop your medicine early. You can take this medicine with food or on an empty stomach. It can be taken with a meal that contains dairy or calcium, but do not take it alone with a dairy product, like milk or yogurt or calcium-fortified juice. A special MedGuide will be given to you by the pharmacist with each prescription and refill. Be sure to read this information carefully each time. Talk to your men's and boys' clothing salesperson regarding the use of this medicine in children. Special care may be needed. What side effects may I notice from receiving this medicine? Side effects that you should report to your doctor or health gericare aide as soon as possible: - allergic reactions like skin rash, itching or hives, swelling of the face, lips, or tongue - breathing problems - confusion, nightmares or hallucinations - feeling faint or lightheaded, falls - irregular heartbeat - joint, muscle or tendon pain or swelling - pain or trouble passing urine -persistent headache with or without blurred vision - redness, blistering, peeling or loosening of the skin, including inside the mouth - seizure - unusual pain, numbness, tingling, or weakness Side effects that usually do not require medical attention (report to your doctor or health gericare aide if they continue or are bothersome): - diarrhea - nausea or stomach upset - white patches or sores in the mouth What may interact with this medicine? Do not take this medicine with any of the following medications: cisapride droperidol terfenadine tizanidine This medicine may also interact with the following medications: antacids caffeine cyclosporin didanosine (ddI) buffered tablets or powder medicines for diabetes medicines for inflammation like ibuprofen, naproxen methotrexate multivitamins omeprazole phenytoin probenecid sucralfate theophylline warfarin What if I miss a dose? If you miss a dose, take it as soon as you can. If it is almost time for your next dose, take only that dose. Do not take double or extra doses. Where should I keep my medicine? Keep out of the reach of children. Store at room temperature below 30 degrees C (86 degrees F). Keep container tightly closed. Throw away any unused medicine after the expiration date. What should I tell my health care provider before I take this medicine? They need to know if you have any of these conditions: -bone problems -cerebral disease -joint problems -irregular heartbeat -kidney disease -liver disease -myasthenia gravis -seizure disorder -tendon problems -an unusual or allergic reaction to ciprofloxacin, other antibiotics or medicines, foods, dyes, or preservatives - or trying to get -breast-feeding What should I watch for while using this medicine? Tell your doctor or health gericare aide if your symptoms do not improve. Do not treat diarrhea with over the counter products. Contact your doctor if you have diarrhea that lasts more than 2 days or if it is severe and watery. You may get drowsy or dizzy. Do not drive, use machinery, or do anything that needs mental alertness until you know how this medicine affects you. Do not stand or sit up quickly, especially if you are an older patient. This reduces the risk of dizzy or fainting spells. This medicine can make you more sensitive to the sun. Keep out of the sun. If you cannot avoid being in the sun, wear protective clothing and use sunscreen. Do not use sun lamps or tanning beds/booths. Avoid antacids, aluminum, calcium, iron, magnesium, and zinc products for 6 hours before and 2 hours after taking a dose of this medicine. You have been given the following additional information: Bladder Infection, Female (Adult) Ciprofloxacin Hydrochloride Oral tablet (Electronically signed by Eliel Ogden MD 04/05/2016 2:35)
--- NOTE | 2016-04-05 02:36 | ED MAR SUMMARY ---
..... Medication Administration Record [facility] [address] [place], [place] [id number] Patient: ALEX WEBSTER Victorino Visit ID: [id number] 35y, F Weight: 72.5 kg Height/Length: 67 in BMI: 25.1 ALLERGIES: Tessalon
--- NOTE | 2016-04-05 02:36 | ED MED RECONCILIATION SUMMARY ---
Patient: ALEX WEBSTER Medication Reconciliation Report [facility] VisitID: [id number] [address] [place] [address] 35y, F Registration Date/Time: 04/03/2016 Weight: 72.5 kg Height/Length: 67 in. BMI: 25.1 ALLERGIES: Tessalon The patient's Home Medications are listed below: NONE. The source(s) of the original Home Medication information: Not obtained. The following Medications were given to the patient in the Emergency Department: None. The following Medications were prescribed to the patient: Cipro 500 mg: take 1 tab orally every 12 hours for 10 days. Dispense twenty (20). No refills. Substitution is permissible. -- Eliel Ogden MD
--- NOTE | 2016-04-05 02:36 | ED MAR SUMMARY ---
..... Medication Administration Record [facility] [address] [place], [place] [id number] Patient: ALEX WEBSTER Victorino Visit ID: [id number] 35y, F Weight: 72.5 kg Height/Length: 67 in BMI: 25.1 ALLERGIES: Tessalon
--- NOTE | 2016-04-05 02:36 | ED MED RECONCILIATION SUMMARY ---
Patient: ALEX WEBSTER Medication Reconciliation Report [facility] VisitID: [id number] [address] [place] [address] 35y, F Registration Date/Time: 04/03/2016 Weight: 72.5 kg Height/Length: 67 in. BMI: 25.1 ALLERGIES: Tessalon The patient's Home Medications are listed below: NONE. The source(s) of the original Home Medication information: Not obtained. The following Medications were given to the patient in the Emergency Department: None. The following Medications were prescribed to the patient: Cipro 500 mg: take 1 tab orally every 12 hours for 10 days. Dispense twenty (20). No refills. Substitution is permissible. -- Eliel Ogden MD
== END 2016-04-03 01:44 | disposition home or self-care (01) ==
LOC: ED SRH 00:23
DX: N10 Acute pyelonephritis (principal); N39.0 Urinary tract infection, site not specified; Z87.891 Personal history of nicotine dependence; Z88.8 Allergy status to other drugs, medicaments and biological substances
CPT/HCPCS: 90004; 90100; 90148; 90469; 92235; 92530; 93070; 95059

== ENCOUNTER 2016-04-24 02:11 | Emergency (ER) | payer OTHER ==
--- NOTE | 2016-04-24 04:05 | ED CLINICAL REPORT ---
Clinical Report - Physicians/Mid Levels [facility] [address] [place] [address] 04/24/2016 2:12 Patient: ALEX WEBSTER Time Seen: 02:58. Arrived- By private vehicle. Historian- patient. HISTORY OF PRESENT ILLNESS Chief Complaint: JAW PAIN. This started at 4 days ago; Pt notes pain near the angle of the L mandible. She also notes anterior dental pain. and is still present. It was gradual in onset. Pain described as moderate. No sore throat, mouth sores or swollen jaw or face. She has had toothache and jaw pain. Similar symptoms previously: Several times. REVIEW OF SYSTEMS No fever, cough, difficulty breathing, chest pain or nausea. No abdominal pain. PAST HISTORY PCP: Dr ABRAMS Flank Pain. Pyelonephritis. Pelvic Inflammatory Disease. Dysmenorrhea. Costochondritis. Vaginal Bleeding. Ectopic . Ureterolithiasis. Dental Pain. Abscess. Migraine Headache. Pelvic Pain. ADDITIONAL NOTES The nursing notes have been reviewed. PHYSICAL EXAM Vital Signs: 04/24/2016 03:52 BP: 127/85. HR: 81. RR: 15. O2 saturation: 99%. 04/24/2016 02:14 BP: 147/95. HR: 92. RR: 18. O2 saturation: 100%. Temp: 98.5 F. Appearance: Alert. No acute distress. ENT: Moderate dental tenderness of multiple teeth (lower right medial incisor and lateral incisor, lower left medial incisor and lateral incisor) (along a non-swollen R mandible devoid of teeth except for tender lower incisors with evident decay). Trismus present. No muffled or hoarse voice. The mucous membranes are not dry. Neck: Normal inspection. Trachea midline. No adenopathy. Thyroid normal. Neck supple. Abdomen: No organomegaly. Extremities: Extremities nontender. PROGRESS AND PROCEDURES Course of Care: 04:01 04/24/16. Politely declines dental block The mandible pain cause is unclear and may be from the TMJ. There is also significant lower midline dental decay. Disposition: Discharged. Condition: stable. CLINICAL IMPRESSION Dental caries. RIGHT POSTERIOR JAW PAIN. INSTRUCTIONS (SEE THE [facility] DENTIST YOU DO HAVE DENTAL DECAY BUT THE JAW PAIN MAY BE FROM YOUR TMJ (JAW JOINT) IBUPROFEN ON A SCHEDULE WOULD LIKELY HELP THAT.). Prescription Medications: Amoxicillin 500 mg tablets: Take 1 orally every 8 hours for 10 days. Dispense thirty (30). No refills. Follow-up: Follow up with a specialist. Reason for referral: DENTAL RE EVALUATION. Understanding of the discharge instructions verbalized by patient. (Electronically signed by Jarad Peralta MD 04/25/2016 11:52)
--- NOTE | 2016-04-24 04:05 | ED ORDER SUMMARY ---
..... Patient: ALEX WEBSTER OrderSheet [facility] VisitID: [id number] [address] [place] [address] 35y, F Registration Date/Time: 04/24/2016 ORDER SHEET Weight: 77.1 kg (stated) Allergies: Tessalon GENERAL ORDERS: MEDICATION ORDERS: Ibuprofen PO 600 mg (NOW) (04:02 04/24/2016 Gilberto DICKEY) (4:10 TLewis R.N.) Amoxicillin PO 500 mg (NOW) (04:03 04/24/2016 Gilberto DICKEY) (4:10 TLewis R.N.) IV FLUIDS: ORDER SHEET NOTES: [Electronically signed by Tereso Rodgers R.N. (04:12 04/24/2016)] [Electronically signed by Jarad Peralta MD (11:52 04/25/2016)] [Electronically locked/signed by Tereso Rodgers R.N. (04:12 04/24/2016)]
--- NOTE | 2016-04-24 04:05 | ED CLINICAL REPORT ---
Clinical Report - Physicians/Mid Levels [facility] [address] [place] [address] 04/24/2016 2:12 Patient: ALEX WEBTSER Time Seen: 02:58. Arrived- By private vehicle. Historian- patient. HISTORY OF PRESENT ILLNESS Chief Complaint: JAW PAIN. This started at 4 days ago; Pt notes pain near the angle of the L mandible. She also notes anterior dental pain. and is still present. It was gradual in onset. Pain described as moderate. No sore throat, mouth sores or swollen jaw or face. She has had toothache and jaw pain. Similar symptoms previously: Several times. REVIEW OF SYSTEMS No fever, cough, difficulty breathing, chest pain or nausea. No abdominal pain. PAST HISTORY PCP: Dr ABRAMS Flank Pain. Pyelonephritis. Pelvic Inflammatory Disease. Dysmenorrhea. Costochondritis. Vaginal Bleeding. Ectopic . Ureterolithiasis. Dental Pain. Abscess. Migraine Headache. Pelvic Pain. ADDITIONAL NOTES The nursing notes have been reviewed. PHYSICAL EXAM Vital Signs: 04/24/2016 03:52 BP: 127/85. HR: 81. RR: 15. O2 saturation: 99%. 04/24/2016 02:14 BP: 147/95. HR: 92. RR: 18. O2 saturation: 100%. Temp: 98.5 F. Appearance: Alert. No acute distress. ENT: Moderate dental tenderness of multiple teeth (lower right medial incisor and lateral incisor, lower left medial incisor and lateral incisor) (along a non-swollen R mandible devoid of teeth except for tender lower incisors with evident decay). Trismus present. No muffled or hoarse voice. The mucous membranes are not dry. Neck: Normal inspection. Trachea midline. No adenopathy. Thyroid normal. Neck supple. Abdomen: No organomegaly. Extremities: Extremities nontender. PROGRESS AND PROCEDURES Course of Care: 04:01 04/24/16. Politely declines dental block The mandible pain cause is unclear and may be from the TMJ. There is also significant lower midline dental decay. Disposition: Discharged. Condition: stable. CLINICAL IMPRESSION Dental caries. RIGHT POSTERIOR JAW PAIN. INSTRUCTIONS (SEE THE [facility] DENTIST YOU DO HAVE DENTAL DECAY BUT THE JAW PAIN MAY BE FROM YOUR TMJ (JAW JOINT) IBUPROFEN ON A SCHEDULE WOULD LIKELY HELP THAT.). Prescription Medications: Amoxicillin 500 mg tablets: Take 1 orally every 8 hours for 10 days. Dispense thirty (30). No refills. Follow-up: Follow up with a specialist. Reason for referral: DENTAL RE EVALUATION. Understanding of the discharge instructions verbalized by patient. (Electronically signed by Jarad Peralta MD 04/25/2016 11:52)
--- NOTE | 2016-04-24 04:05 | ED ORDER SUMMARY ---
..... Patient: ALEX WEBSTER OrderSheet [facility] VisitID: [id number] [address] [place] [address] 35y, F Registration Date/Time: 04/24/2016 ORDER SHEET Weight: 77.1 kg (stated) Allergies: Tessalon GENERAL ORDERS: MEDICATION ORDERS: Ibuprofen PO 600 mg (NOW) (04:02 04/24/2016 Gilberto DICKEY) (4:10 TLewis R.N.) Amoxicillin PO 500 mg (NOW) (04:03 04/24/2016 Gilberto DICKEY) (4:10 TLewis R.N.) IV FLUIDS: ORDER SHEET NOTES: [Electronically signed by Tereso Rodgers R.N. (04:12 04/24/2016)] [Electronically signed by Jarad Peralta MD (11:52 04/25/2016)] [Electronically locked/signed by Tereso Rodgers R.N. (04:12 04/24/2016)]
--- NOTE | 2016-04-24 04:05 | ED NURSING NOTES ---
Clinical Report - Nurses [facility] [address] [place] [address] 04/24/2016 2:12 Patient: ALEX WEBSTER TRIAGE Triage time 02:16. Acuity: LEVEL 4. Chief Complaint: RIGHT LOWER TOOTHACHE and JAW PAIN and SWELLING OF JAW / FACE. --02:19 Tereso Rodgers R.N. 02:14 04/24/16. BP: 147/95. HR: 92. RR: 18. O2 saturation: 100%. Temp: 98.5 F. Pain level now 08/21. --02:19 Tereso Rodgers R.N. Weight: 77.1 kg stated. Height/Length: 67 inches Per Patient. BMI: 26.6. --02:17 Tereso Rodgers R.N. Medications None. --02:18 Tereso Rodgers R.N. Allergies Tessalon. --02:18 Tereso Rodgers R.N. History Onset. (4 days ago). ( Pt came in with right lower jaw pain with tenderness to her single tooth on the lower right side. Pt has no teeth in the lower right side. pt stated it feels swollen and is tender to the touch.). She has had facial pain. She has had a moderate toothache involving a single tooth (right lower incisor). 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 PAST MEDICAL HX: Immunizations: up-to-date. SOCIAL HX: Former smoker. No alcohol use or drug use. --02:19 Tereso Rodgers R.N. PROBLEMS: Flank Pain. Exposure To Infectious Disease. URI. UTI - Urinary Tract Infection. Pyelonephritis. Pelvic Inflammatory Disease. Dysmenorrhea. Contusion. Back Pain. Neck Pain. Tetanus Status. Abdominal Pain. Acute Pain. Bronchitis. Costochondritis. Vaginal Bleeding. Ectopic . Ureterolithiasis. Dental Pain. Abscess. Pharyngitis. Sinusitis. Migraine Headache. Pelvic Pain. Immunizations. Threatened . LNMP - Last Normal Menstrual Period. OB History. --02:19 Tereso Rodgers R.N. Pelvic Inflammatory Disease [RuleOut]. UTI - Urinary Tract Infection [RuleOut]. Dental Pain [RuleOut]. --02:19 Tereso Rodgers R.N. Interventions ID band on patient. To waiting room. --02:19 Tereso Rodgers R.N. PHYSICAL ASSESSMENT GENERAL / NEURO / PSYCH: Alert. Oriented X 4. Appears in no acute distress. HEENT: Pupils equal, round and reactive to light. Pharynx within normal limits. Voice within normal limits. Mouth within normal limits upon inspection. Moderate dental tenderness (right lower incisor). ( missing teeth on the lower right side with tenderness to the jaw and the gum lining.). Mucous membranes are pink. RESPIRATORY: Respirations not labored. CVS: Capillary refill less than 2 seconds. SKIN: Skin is warm and dry. Normal skin turgor. --02:20 Tereso Rodgers R.N. NURSING PROGRESS NOTES Patient gowned. Two patient identifiers checked. Call light placed in reach. Side rails up x 1. Bed placed in lowest position. Brakes of bed on. --02:20 Tereso Rodgers R.N. 03:52 04/24/16. BP: 127/85. HR: 81. RR: 15. O2 saturation: 99%. Pain level now 7/10. --03:53 Tereso Rodgers R.N. ( Pt is sitting in bed and playing on her phone. VS have been updated.). --03:53 Tereso Rodgers R.N. 04:10 04/24/2016 Ibuprofen PO 600 mg given. Allergies verified and confirmed 5 rights. --04:10 Tereso Rodgers R.N. 04:10 04/24/2016 Amoxicillin PO 500 mg given. Allergies verified and confirmed 5 rights. --04:10 Tereso Rodgers R.N. DISPOSITION / DISCHARGE Departure time: 04:12. No learning barriers present. Discharge instructions provided and reviewed with the patient. Reviewed medication(s) side effects, precautions, dosing and course information. Prescription(s) given to the patient (AMOXICILLIN). Reviewed referral to a dentist. Patient verbalized understanding. Written instructions provided in Thai. The patient was discharged by the physician. She was discharged home and unaccompanied at time of discharge. She left the Emergency Department ambulatory and via private vehicle. Patient driving. --04:12 Tereso Rodgers R.N. Locked/Released at 04/24/2016 4:12 by Tereso Rodgers R.N.
--- NOTE | 2016-04-24 04:05 | ED NURSING NOTES ---
Clinical Report - Nurses [facility] [address] [place] [address] 04/24/2016 2:12 Patient: ALEX WEBSTER TRIAGE Triage time 02:16. Acuity: LEVEL 4. Chief Complaint: RIGHT LOWER TOOTHACHE and JAW PAIN and SWELLING OF JAW / FACE. --02:19 Tereso Rodgers R.N. 02:14 04/24/16. BP: 147/95. HR: 92. RR: 18. O2 saturation: 100%. Temp: 98.5 F. Pain level now 08/21. --02:19 Tereso Rodgers R.N. Weight: 77.1 kg stated. Height/Length: 67 inches Per Patient. BMI: 26.6. --02:17 Tereso Rodgers R.N. Medications None. --02:18 Tereso Rodgers R.N. Allergies Tessalon. --02:18 Tereso Rodgers R.N. History Onset. (4 days ago). ( Pt came in with right lower jaw pain with tenderness to her single tooth on the lower right side. Pt has no teeth in the lower right side. pt stated it feels swollen and is tender to the touch.). She has had facial pain. She has had a moderate toothache involving a single tooth (right lower incisor). 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 PAST MEDICAL HX: Immunizations: up-to-date. SOCIAL HX: Former smoker. No alcohol use or drug use. --02:19 Tereso Rodgers R.N. PROBLEMS: Flank Pain. Exposure To Infectious Disease. URI. UTI - Urinary Tract Infection. Pyelonephritis. Pelvic Inflammatory Disease. Dysmenorrhea. Contusion. Back Pain. Neck Pain. Tetanus Status. Abdominal Pain. Acute Pain. Bronchitis. Costochondritis. Vaginal Bleeding. Ectopic . Ureterolithiasis. Dental Pain. Abscess. Pharyngitis. Sinusitis. Migraine Headache. Pelvic Pain. Immunizations. Threatened . LNMP - Last Normal Menstrual Period. OB History. --02:19 Tereso Rodgers R.N. Pelvic Inflammatory Disease [RuleOut]. UTI - Urinary Tract Infection [RuleOut]. Dental Pain [RuleOut]. --02:19 Tereso Rodgers R.N. Interventions ID band on patient. To waiting room. --02:19 Tereso Rodgers R.N. PHYSICAL ASSESSMENT GENERAL / NEURO / PSYCH: Alert. Oriented X 4. Appears in no acute distress. HEENT: Pupils equal, round and reactive to light. Pharynx within normal limits. Voice within normal limits. Mouth within normal limits upon inspection. Moderate dental tenderness (right lower incisor). ( missing teeth on the lower right side with tenderness to the jaw and the gum lining.). Mucous membranes are pink. RESPIRATORY: Respirations not labored. CVS: Capillary refill less than 2 seconds. SKIN: Skin is warm and dry. Normal skin turgor. --02:20 Tereso Rodgers R.N. NURSING PROGRESS NOTES Patient gowned. Two patient identifiers checked. Call light placed in reach. Side rails up x 1. Bed placed in lowest position. Brakes of bed on. --02:20 Tereso Rodgers R.N. 03:52 04/24/16. BP: 127/85. HR: 81. RR: 15. O2 saturation: 99%. Pain level now 7/10. --03:53 Tereso Rodgers R.N. ( Pt is sitting in bed and playing on her phone. VS have been updated.). --03:53 Tereso Rodgers R.N. 04:10 04/24/2016 Ibuprofen PO 600 mg given. Allergies verified and confirmed 5 rights. --04:10 Tereso Rodgers R.N. 04:10 04/24/2016 Amoxicillin PO 500 mg given. Allergies verified and confirmed 5 rights. --04:10 Tereso Rodgers R.N. DISPOSITION / DISCHARGE Departure time: 04:12. No learning barriers present. Discharge instructions provided and reviewed with the patient. Reviewed medication(s) side effects, precautions, dosing and course information. Prescription(s) given to the patient (AMOXICILLIN). Reviewed referral to a dentist. Patient verbalized understanding. Written instructions provided in [place]. The patient was discharged by the physician. She was discharged home and unaccompanied at time of discharge. She left the Emergency Department ambulatory and via private vehicle. Patient driving. --04:12 Tereso Rodgers R.N. Locked/Released at 04/24/2016 4:12 by Tereso Rodgers R.N.
--- NOTE | 2016-04-25 11:53 | ED DISCHARGE INSTRUCTIONS ---
Patient: ALEX WEBSTER General Instructions [facility] VisitID: [id number] [place] [address] 35y, F Registration Date/Time: 04/24/2016 Dental caries. RIGHT POSTERIOR JAW PAIN. INSTRUCTIONS (SEE THE [facility] DENTIST YOU DO HAVE DENTAL DECAY BUT THE JAW PAIN MAY BE FROM YOUR TMJ (JAW JOINT) IBUPROFEN ON A SCHEDULE WOULD LIKELY HELP THAT.). Prescription Medications: Amoxicillin 500 mg tablets: Take 1 orally every 8 hours for 10 days. Dispense thirty (30). No refills. Follow-up: Follow up with a specialist. Reason for referral: DENTAL RE EVALUATION. Understanding of the discharge instructions verbalized by patient. ADDITIONAL INFORMATION Dental Cavity A dental cavity is a pit or crater in the enamel surface of the tooth. This exposes the sensitive inner layer of the tooth and causes pain. If untreated, the cavity will get bigger and may cause an infection or abscess in the root of the tooth. An infection in the tooth is a much more serious problem and may require a root canal or removal of the entire tooth. The tooth pain may be made worse by drinking hot or cold fluids. It may spread from the tooth to the ear or jaw on the same side. Home Care: Avoid hot and cold foods, and liquids since your tooth may be sensitive to temperature changes. If your tooth is chipped or cracked, or if there is a large open cavity, apply OIL OF CLOVES (available ihwh-feb-izfihbu in drug stores) directly to the tooth to reduce pain. Some pharmacies carry an wggw-sjm-cysxuzi "toothache kit." This contains oil of cloves and a paste, which can be applied over the exposed tooth to decrease sensitivity. An ice pack on your jaw over the sore area may help to reduce pain. You may use acetaminophen (Tylenol) or ibuprofen (Motrin, Advil) to control pain, unless another pain medicine was prescribed. [ NOTE: If you have liver disease or ever had a stomach ulcer, talk with your doctor before using these medicines.] If you have signs of an infection, an antibiotic will be given. Take it as directed. Follow-Up with your dentist as directed. Although your pain may go away with the treatment given, only a dentist can fully evaluate and treat this problem to prevent further tooth damage. Get Prompt Medical Attention if any of the following occur: Redness or swelling of the face Pain worsens or spreads to the neck Fever over 100.5 F (38C) Unusual drowsiness; headache or stiff neck; weakness or fainting Pus drains from the tooth or gum Difficulty swallowing or breathing You have been given the following additional information: Dental Cavity (Electronically signed by Jarad Peralta MD 04/25/2016 11:52)
--- NOTE | 2016-04-25 11:53 | ED DISCHARGE INSTRUCTIONS ---
Patient: ALEX WEBSTER General Instructions [facility] VisitID: [id number] [place] [address] 35y, F Registration Date/Time: 04/24/2016 Dental caries. RIGHT POSTERIOR JAW PAIN. INSTRUCTIONS (SEE THE [facility] DENTIST YOU DO HAVE DENTAL DECAY BUT THE JAW PAIN MAY BE FROM YOUR TMJ (JAW JOINT) IBUPROFEN ON A SCHEDULE WOULD LIKELY HELP THAT.). Prescription Medications: Amoxicillin 500 mg tablets: Take 1 orally every 8 hours for 10 days. Dispense thirty (30). No refills. Follow-up: Follow up with a specialist. Reason for referral: DENTAL RE EVALUATION. Understanding of the discharge instructions verbalized by patient. ADDITIONAL INFORMATION Dental Cavity A dental cavity is a pit or crater in the enamel surface of the tooth. This exposes the sensitive inner layer of the tooth and causes pain. If untreated, the cavity will get bigger and may cause an infection or abscess in the root of the tooth. An infection in the tooth is a much more serious problem and may require a root canal or removal of the entire tooth. The tooth pain may be made worse by drinking hot or cold fluids. It may spread from the tooth to the ear or jaw on the same side. Home Care: Avoid hot and cold foods, and liquids since your tooth may be sensitive to temperature changes. If your tooth is chipped or cracked, or if there is a large open cavity, apply OIL OF CLOVES (available oclw-xrb-pbowzgt in drug stores) directly to the tooth to reduce pain. Some pharmacies carry an ltlx-cxx-ybhofua "toothache kit." This contains oil of cloves and a paste, which can be applied over the exposed tooth to decrease sensitivity. An ice pack on your jaw over the sore area may help to reduce pain. You may use acetaminophen (Tylenol) or ibuprofen (Motrin, Advil) to control pain, unless another pain medicine was prescribed. [ NOTE: If you have liver disease or ever had a stomach ulcer, talk with your doctor before using these medicines.] If you have signs of an infection, an antibiotic will be given. Take it as directed. Follow-Up with your dentist as directed. Although your pain may go away with the treatment given, only a dentist can fully evaluate and treat this problem to prevent further tooth damage. Get Prompt Medical Attention if any of the following occur: Redness or swelling of the face Pain worsens or spreads to the neck Fever over 100.5 F (38C) Unusual drowsiness; headache or stiff neck; weakness or fainting Pus drains from the tooth or gum Difficulty swallowing or breathing You have been given the following additional information: Dental Cavity (Electronically signed by Jarad Peralta MD 04/25/2016 11:52)
--- NOTE | 2016-04-25 11:53 | ED MED RECONCILIATION SUMMARY ---
Patient: ALEX WEBSTER Medication Reconciliation Report [facility] VisitID: [id number] [address] [place] [address] 35y, F Registration Date/Time: 04/24/2016 Weight: 77.1 kg Height/Length: 67 in. BMI: 26.6 ALLERGIES: Tessalon The patient's Home Medications are listed below: NONE. The source(s) of the original Home Medication information: Not obtained. The following Medications were given to the patient in the Emergency Department: Ibuprofen [PO] PO 600 mg, administered: 04/24/2016 4:10:00 AM Amoxicillin [PO] PO 500 mg, administered: 04/24/2016 4:10:00 AM The following Medications were prescribed to the patient: Amoxicillin 500 mg tablets: Take 1 orally every 8 hours for 10 days. Dispense thirty (30). No refills. -- Jarad Peralta MD
--- NOTE | 2016-04-25 11:53 | ED MAR SUMMARY ---
..... Medication Administration Record [facility] [address] [place] [address] Patient: ALEX WEBSTER Visit ID: [id number] 35y, F Weight: 77.1 kg Height/Length: 67 in BMI: 26.6 ALLERGIES: Tessalon Given 04:04/24/2016 Tereso Rodgers R.N. Medication Administered: IBUPROFEN [PO], Dose: 600 mg PO. Medication Ordered: Ibuprofen PO 600 mg (NOW). Given 04:04/24/2016 Tereso Rodgers R.N. Medication Administered: AMOXICILLIN [PO], Dose: 500 mg PO. Medication Ordered: Amoxicillin PO 500 mg (NOW).
--- NOTE | 2016-04-25 11:53 | ED MAR SUMMARY ---
..... Medication Administration Record [facility] [address] [place] [address] Patient: ALEX WEBSTER Visit ID: [id number] 35y, F Weight: 77.1 kg Height/Length: 67 in BMI: 26.6 ALLERGIES: Tessalon Given 04:04/24/2016 Tereso Rodgers R.N. Medication Administered: IBUPROFEN [PO], Dose: 600 mg PO. Medication Ordered: Ibuprofen PO 600 mg (NOW). Given 04:04/24/2016 Tereso Rodgers R.N. Medication Administered: AMOXICILLIN [PO], Dose: 500 mg PO. Medication Ordered: Amoxicillin PO 500 mg (NOW).
--- NOTE | 2016-04-25 11:53 | ED MED RECONCILIATION SUMMARY ---
Patient: ALEX WEBSTER Medication Reconciliation Report [facility] VisitID: [id number] [address] [place] [address] 35y, F Registration Date/Time: 04/24/2016 Weight: 77.1 kg Height/Length: 67 in. BMI: 26.6 ALLERGIES: Tessalon The patient's Home Medications are listed below: NONE. The source(s) of the original Home Medication information: Not obtained. The following Medications were given to the patient in the Emergency Department: Ibuprofen [PO] PO 600 mg, administered: 04/24/2016 4:10:00 AM Amoxicillin [PO] PO 500 mg, administered: 04/24/2016 4:10:00 AM The following Medications were prescribed to the patient: Amoxicillin 500 mg tablets: Take 1 orally every 8 hours for 10 days. Dispense thirty (30). No refills. -- Jarad Peralta MD
== END 2016-04-24 04:07 | disposition home or self-care (01) ==
LOC: ED SRH 02:11
DX: R68.84 Jaw pain (principal); K02.9 Dental caries, unspecified

== ENCOUNTER 2016-05-24 15:31 | Emergency (ER) | payer OTHER ==
--- NOTE | 2016-05-24 18:39 | DIAGNOSTIC IMAGING REPORT ---
PROCEDURE: CT ABD/PELVIS WITH CONTRAST CLINICAL INDICATION: Right flank and right lower quadrant pain with nausea, initial encounter TECHNIQUE: 125 ml of Isovue 300 were injected intravenously and axial images were obtained of the entire abdomen and pelvis with sagittal and coronal reformations. COMPARISON: CT abdomen/pelvis 06/30/2015. FINDINGS: ABDOMEN: Lung bases are clear. Heart size is normal. Liver, gallbladder, pancreas, spleen and adrenal glands are normal. Bilateral renal cysts. Normal enhancement of the kidneys. No hydronephrosis. Normal abdominal aorta. PELVIS: Normal appendix. Uterus, adnexa and bladder are unremarkable. No free fluid or inflammatory changes. Bones are unremarkable. IMPRESSION: 1. Bilateral renal cysts. All CT scans at this facility use dose modulation, iterative reconstruction, and/or weight-based dosing when appropriate to reduce radiation dose to as low as reasonably achievable.
--- NOTE | 2016-05-24 18:53 | ED CLINICAL REPORT ---
Clinical Report - Physicians/Mid Levels [facility] [address] [place] [address] 05/24/2016 15:31 Patient: ALEX WEBSTER Time Seen: 15:36; initial patient contact, initial documentation, patient care assumed. Arrived- By private vehicle. Historian- patient. HISTORY OF PRESENT ILLNESS Chief Complaint: ABDOMINAL PAIN. It is described as "pain" and cramping and it is described as located in the right lower quadrant and radiating to the low back. At its maximum, severity described as severe. When seen in the E.D., severity described as severe. Modifying factors. Not worsened by anything. Not relieved by anything. This started about 2 days ago and is still present. It was abrupt in onset and has been constant. The patient has had nausea. No loss of appetite, vomiting or diarrhea. (period started x2 days ago, started with heavier bleeding than normal and really bad pain, bleeding is back down to normal period bleed, but the pain is severe, and she never has bad pains like this with cycle). No recent travel. Similar symptoms previously: None. Recent medical care: The patient was seen recently in a clinic. 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 REVIEW OF SYSTEMS No constipation, black stools, hematemesis, difficulty with urination or pain with urination. No urinary frequency, missed periods, abnormal bleeding, bloody stools or fever. No chest pain or difficulty breathing. Denies current . All systems otherwise negative, except as recorded above. PAST HISTORY See nurses notes. PROBLEMS: Exposure To Infectious Disease. URI. UTI - Urinary Tract Infection. Pyelonephritis. Pelvic Inflammatory Disease. Dysmenorrhea. Contusion. Neck Pain. Abdominal Pain. Acute Pain. Bronchitis. Costochondritis. Ectopic . Ureterolithiasis. Pharyngitis. Sinusitis. Migraine Headache. --15:59 Tia Paniagua RAriadna. ADDITIONAL SURGERIES: Cone biopsy. Lithotripsy. --15:59 Tia Paniagua R.N. SOCIAL HISTORY Former smoker. Occasional alcohol use. No drug use. No recent travel. Is a local resident. ADDITIONAL NOTES The nursing notes have been reviewed with agreement regarding the chief complaint, HPI, ROS, PMH and patient medications and allergies. PHYSICAL EXAM Vital Signs: 05/24/2016 15:58 BP: 136/92. HR: 94. RR: 16. O2 saturation: 100%. Temp: 98.2 F. Pain level now: 7/10. Have been reviewed as normal and appear to be correct. Appearance: Alert. Oriented X3. No acute distress. Eyes: Pupils equal, round and reactive to light. Eyes normal inspection. Neck: Normal inspection. Neck supple. CVS: Normal heart rate and rhythm. Heart sounds normal. Pulses normal. Respiratory: No respiratory distress. Breath sounds normal. Chest nontender. Abdomen: Soft. Moderate tenderness in the right side of the abdomen and right lower quadrant with guarding present. No rebound tenderness or Hair's, obturator or psoas sign present. Bowel sounds normal. No organomegaly. No mass. Tenderness present. Back: Normal inspection. Skin: Skin warm and dry. Normal skin color. No rash. Normal skin turgor. Extremities: Extremities exhibit normal ROM. No lower extremity edema. Neuro: Oriented X 3. No motor deficit. No sensory deficit. LABS, X-RAYS, AND EKG Abdominal CT: . IMPRESSION: 1. Bilateral renal cysts. All CT scans at this facility use dose modulation, iterative reconstruction, and/or weight-based dosing when appropriate to reduce radiation dose to as low as reasonably achievable. Electronically Final signed by:Jacob Lowery MD 05/24/2016 6:38:49 PM. The study was interpreted by the radiologist and discussed with the radiologist. Laboratory Tests: UA-Culture if indicated: (RIMA: 05/24/2016 16:01) ( MsgRcvd 05/24/2016 17:24) Final results Test Result Flag Units (Reference) URINE COLOR YELLOW URINE APPEARANCE CLEAR URINE GLUCOSE NEGATIVE (NEGATIVE) URINE BILIRUBIN NEGATIVE (NEGATIVE) URINE KETONE NEGATIVE (NEGATIVE) URINE SPECIFIC GRAVITY 1.010 (1.010-1.030) URINE PH 6.5 (5.0-8.0) URINE PROTEIN NEGATIVE (NEGATIVE) URINE UROBILINOGEN 0.2 EU/dL (0.2-1.0) URINE NITRITE NEGATIVE (NEGATIVE) URINE BLOOD TRACE-INTACT (NEGATIVE) URINE LEUK ESTERASE NEGATIVE (NEGATIVE) URINE RBC 0-1 rbc/hpf (0-1) URINE WBC 0-1 wbc/hpf (0-1) URINE EPITHELIAL CELLS NONE SEEN EPI/hpf (0-5) URINE BACTERIA FEW (1+) (NONE SEEN) URINE COMMENT CULT NOT INDICATED URINE CULTURES ARE SET-UP BASED ON THE FOLLOWING CRITERIA:POSITIVE NITRITEPOSITIVE LEUKOCYTE ESTERASEGREATER THAN 10 WHITE BLOOD CELLSMODERATE (2+) OR GREATER BACTERIA Urine: (RIMA: 05/24/2016 16:01) ( [facility]12[facility] Final results Test Result Flag Units (Reference) URINE NEGATIVE CBC w Diff: (RIMA: 05/24/2016 16:55) ( [facility] 05/24/2016 17:12) Final results Test Result Flag Units (Reference) WHITE BLOOD COUNT 9.3 K/uL (4.5-11.5) RED BLOOD COUNT 4.61 M/uL (4.00-5.20) HEMOGLOBIN 12.6 gm/dL (12.0-16.0) HEMATOCRIT 38.2 % (36.0-46.0) MEAN CELL VOLUME 83 fL (80-100) MEAN CORPUSCULAR HGB 27 pg (26-34) MEAN CORPUSCULAR HGB CONC 33 g/dL (31-37) RED CELL DISTRIBUTION WIDTH 14.6 % (11.6-14.8) PLATELET COUNT 344 K/uL (150-400) NEUTROPHIL % 77.5 H % (50-75) LYMPH % 17.5 L % (25-40) MONO % 4.1 % (3-14) EOSINOPHIL % 0.6 % (0-4) BASOPHIL % 0.3 % (0-2) CMP: (RIMA: 05/24/2016 16:55) ( [facility] 05/24/2016 17:21) Final results Test Result Flag Units (Reference) GLUCOSE 87 mg/dL (70-110) BUN 10 mg/dL (7-18) CREATININE 0.6 mg/dL (0.6-1.3) Estimated GFR >60 mL/min Estimated GFR- >60 mL/min Note: Persistent reduction over 3 months in eGFR<60 mL/min/1.73 m2 defines CKD. Patients with eGFR values>=60 mL/min/1.73 m2 may also have CKD if evidence ofpersistent proteinuria. Additional information may be foundat www.kidney.org. SODIUM 141 mmol/L (136-145) POTASSIUM 3.6 mmol/L (3.5-5.1) CHLORIDE 104 mmol/L (98-107) CARBON DIOXIDE 26 mmol/L (21-32) CALCIUM 9.1 mg/dL (8.5-10.1) TOTAL PROTEIN 7.6 g/dL (6.4-8.2) ALBUMIN 3.9 g/dL (3.3-5.0) BILIRUBIN, TOTAL 0.3 mg/dL (0.0-1.0) ALKALINE PHOSPHATASE 71 U/L (46-116) AST (SGOT) 13 L U/L (15-37) ALT (SGPT) 17 U/L (12-78) LIPASE 144 U/L (73-393) AMYLASE 40 U/L (25-115) . PROGRESS AND PROCEDURES Course of Care: 05/24/2016 18:11 BP: 132/93. HR: 86. RR: 18. O2 saturation: 100%. Pain level now: 7/10. Vital Signs: have been reviewed as normal and appear to be correct. Patient counseled in person regarding the patient's stable condition, test results and diagnosis. 18:48. Differential Diagnosis: I considered acute appendicitis, mesenteric lymphadenitis, Meckel's diverticulum, urinary tract infection, ureterolithiasis, ovarian cyst, ovarian torsion, , ectopic , pelvic inflammatory disease, pelvic abscess, endometriosis and viral syndrome as a possible cause of abdominal pain in this patient. This is a partial list of diagnoses considered. Above considerations are based on history, physical exam, reassessment, laboratory data and other information. Differential diagnosis was discussed with patient. Disposition: Discharged home in good and improved condition (18:53). Condition: good and stable. CLINICAL IMPRESSION Primary dysmenorrhea Acute right lower quadrant abdominal pain. Acute urinary tract infection with cystitis associated with indwelling catheter and obstruction. No pyelonephritis or hematuria. INSTRUCTIONS Warnings: GENERAL WARNINGS: Return or contact your physician immediately if your condition worsens or changes unexpectedly, if not improving as expected, or if other problems arise. SPECIFICALLY, return if you develop pain in the abdomen or pelvis, fever, the inability to keep fluids down, blood in vomitus, blood in diarrhea, fainting or lightheadedness. Prescription Medications: Macrobid 100 mg: Take 1 capsule orally every 12 hours for 7 days. No refills. Substitution is permissible. Ultram 50 mg tablets: take 1-2 orally every 6 hours as needed for pain. Dispense twenty (20). No refills. Substitution is permissible. Follow-up: Follow up with your doctor in two days even if well. Call for an appointment. Summary of care provided to patient. Understanding of the discharge instructions verbalized by patient. (Electronically signed by Lorene Wang A.R.N.P. 05/24/2016 22:13)
--- NOTE | 2016-05-24 18:54 | ED ORDER SUMMARY ---
..... Patient: ALEX WEBSTER OrderSheet [facility] VisitID: [id number] [place] [address] 35y, F Registration Date/Time: 05/24/2016 ORDER SHEET Weight: 74.3 kg (stated) Allergies: Tessalon GENERAL ORDERS: CT Abd/Pel w Cont (No) (pending) Urgent (16:45 05/24/2016 HBivens A.R.N.P.) (Ack 16:55 KHoerner) (18:02 JSanders R.N.) CBC w Diff Urgent (16:46 05/24/2016 HBivens A.R.N.P.) (Ack 16:55 KHoerner) (16:57 JSanders R.N.) CMP Urgent (16:46 05/24/2016 HBivens A.R.N.P.) (Ack 16:55 KHoerner) (16:57 JSanders R.N.) UA-Culture if indicated Urgent (16:46 05/24/2016 HBivens A.R.N.P.) (16:48 JSanders R.N.) Amylase Urgent (16:46 05/24/2016 HBivens A.R.N.P.) (Ack 16:55 KHoerner) (16:57 JSanders R.N.) Lipase Urgent (16:46 05/24/2016 HBivens A.R.N.P.) (Ack 16:55 KHoerner) (16:57 JSanders R.N.) Urine Urgent (16:46 05/24/2016 HBivens A.R.N.P.) (16:47 JSanders R.N.) MEDICATION ORDERS: IV FLUIDS: Toradol IV 30 mg (NOW) (16:45 05/24/2016 HBivens A.R.N.P.) (16:59 JSanders R.N.) IV Saline Lock (16:46 05/24/2016 HBivens A.R.N.P.) (16:57 JSanders R.N.) ORDER SHEET NOTES: [Electronically signed by Lorene Wang (22:13 05/24/2016)] [Electronically signed by Tia Paniagua R.N. (07:10 05/25/2016)] [Electronically locked/signed by Tia Paniagua R.N. (07:05/25/2016)]
--- NOTE | 2016-05-24 18:54 | ED NURSING NOTES ---
Clinical Report - Nurses [facility] [place] [address] [address] [place] [address] 05/24/2016 15:31 [id number] Triage time 15:58 May 24 2016. Acuity: LEVEL 3. Chief Complaint: ABDOMINAL PAIN and NAUSEA and (Lower abd pain radiates to right flank. Still on menses). SEPSIS SCREEN: Sepsis Screen. Negative (no infection suspected/documented). WARNER COMA SCORE: Warner Coma Scale: 15- eyes open spontaneously (4); best verbal response- oriented x 4 (5); best motor response- obeys commands (6). --16:04 Tia Paniagua R.N. 15:58 05/24/16. BP: 136/92 (regular adult cuff) taken on the left arm, while sitting. HR: 94. RR: 16. O2 saturation: 100% on room air. Temp: 98.2 F (oral). Pain level now: 08/21. --16:04 Tia Paniagua R.N. Weight: 74.3 kg stated. Height/Length: 67 inches Per Patient. BMI: 25.7. --16:02 Tia Paniagua R.N. Medications None. --15:58 Tia Paniagua R.N. Allergies Tessalon. --15:58 Tia Paniagua R.N. History Arrived by private vehicle. Historian: patient. Primary physician (Dr Foss). Onset. (2 days ago). She has had nausea and cramping, constant abdominal pain. The pain is described as located in the RLQ and lower abdomen and radiating to the back and associated with nausea. Last oral intake by patient was (drank something half hour ago, last ate last night dinner). 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 PAST MEDICAL HX: Last normal menstrual period now. SOCIAL HX: Smoker- current status unknown. No alcohol use or drug use. No recent travel. No infectious disease exposure. No known contact with a sick individual. ABUSE ASSESSMENT: No report of abuse. --16:04 Tia Paniagua R.N. PROBLEMS: Exposure To Infectious Disease. URI. UTI - Urinary Tract Infection. Pyelonephritis. Pelvic Inflammatory Disease. Dysmenorrhea. Contusion. Neck Pain. Abdominal Pain. Acute Pain. Bronchitis. Costochondritis. Ectopic . Ureterolithiasis. Pharyngitis. Sinusitis. Migraine Headache. --15:59 Tia Paniagua R.N. ADDITIONAL SURGERIES: Cone biopsy. Lithotripsy. --15:59 Tia Paniagua R.N. Interventions ID band on patient. To treatment room. --16:04 Tia Paniagua R.N. PHYSICAL ASSESSMENT Ambulatory to room. Patient gowned. GENERAL / NEURO / PSYCH: Alert. Oriented X 4. HEENT: Mucous membranes are pink. RESPIRATORY: Respirations not labored. Breath sounds within normal limits. CVS: Capillary refill less than 2 seconds. GI / : The patient has had nausea. Abdomen soft. Abdominal tenderness in the right side of the abdomen and right lower quadrant. Stool color normal. SKIN: Skin is warm. --16:05 Tia Paniagua R.N. NURSING PROGRESS NOTES The plan of care for this patient has been created. Monitoring of patient in place. Patient gowned. Head of bed elevated. Reassurance given. Two patient identifiers checked. Call light placed in reach. Side rails up x 1. Bed placed in lowest position. Brakes of bed on. Patient ready for evaluation- chart flagged and ED physician notified. --16:05 Tia Paniagua R.N. 16:51 05/24/2016 Site #1 started via IV in the right antecubital space with an 20g angiocath, with aseptic technique and good blood return; one attempt. Blood drawn. Labeled in the presence of the patient and sent to the lab. Saline lock flushed with 10 mL saline. --16:57 Tia Paniagua R.N. 16:59 05/24/2016 Toradol IVP 30 mg given over 1 minute(s) via site #1. Allergies verified and confirmed 5 rights. IV patency established. IV site checked: no pain, redness, or swelling. IV flushed thoroughly pre- and post-medication administration. IVP given by RN. --16:59 Tia Paniagua R.N. ( Patient relaxing waiting for her CT scan, she declines a blanket). --17:00 Tia Paniagua R.N. 17:00 05/24/16. BP: 125/95 (regular adult cuff) taken on the left arm, while sitting. HR: 77. RR: 16. O2 saturation: 98% on room air. Pain level now: 08/21. --17:00 Tia Paniagua R.N. 17:25 05/24/2016 Toradol IVP Response: no adverse reaction pain is improving. Symptoms are the same. The patient feels the same. --17:25 Tia Paniagua R.N. 17:25 05/24/16. BP: 126/90 (regular adult cuff) taken on the left arm, while sitting. HR: 82. RR: 16. O2 saturation: 99% on room air. Pain level now: 08/21. --17:26 Tia Paniagua R.N. Patient transported to radiology by stretcher with leasel[employer]. (17:59 May 24 2016). --17:59 Tia Paniagua R.N. Patient returned from radiology by stretcher with leaselock. (18:11 May 24 2016). --18:11 Tia Paniagua R.N. 18:11 05/24/16. BP: 132/93 (regular adult cuff) taken on the left arm, while sitting. HR: 86. RR: 18. O2 saturation: 100% on room air. Pain level now: 08/21. --18:11 Tia Paniagua R.N. DISPOSITION / DISCHARGE 19:05/24/16. Departure time: 1902. Condition at departure: improved and stable. No learning barriers present. Discharge instructions provided and reviewed with the patient. Reviewed medication(s) side effects, precautions, dosing and course information. Prescription(s) given to the patient. Patient verbalized understanding. Written instructions provided in [place]ese. The patient was discharged by the nurse practitioner. She was discharged home. She left the Emergency Department ambulatory and via private vehicle. Patient driving. --19:09 Vijay Rg R.N. 19:05/24/16. BP: 122/84. HR: 82. RR: 16. O2 saturation: 100% on room air. Temp: 98 F (oral). Pain level now 08/21. --19:09 Vijay Rg R.N. Locked/Released at 05/25/2016 7:10 by Tia Paniagua R.N.
--- NOTE | 2016-05-24 18:54 | ED ORDER SUMMARY ---
..... Patient: ALEX WEBSTER OrderSheet [facility] VisitID: [id number] [place] [address] 35y, F Registration Date/Time: 05/24/2016 ORDER SHEET Weight: 74.3 kg (stated) Allergies: Tessalon GENERAL ORDERS: CT Abd/Pel w Cont (No) (pending) Urgent (16:45 05/24/2016 HBivens A.R.N.P.) (Ack 16:55 KHoerner) (18:02 JSanders R.N.) CBC w Diff Urgent (16:46 05/24/2016 HBivens A.R.N.P.) (Ack 16:55 KHoerner) (16:57 JSanders R.N.) CMP Urgent (16:46 05/24/2016 HBivens A.R.N.P.) (Ack 16:55 KHoerner) (16:57 JSanders R.N.) UA-Culture if indicated Urgent (16:46 05/24/2016 HBivens A.R.N.P.) (16:48 JSanders R.N.) Amylase Urgent (16:46 05/24/2016 HBivens A.R.N.P.) (Ack 16:55 KHoerner) (16:57 JSanders R.N.) Lipase Urgent (16:46 05/24/2016 HBivens A.R.N.P.) (Ack 16:55 KHoerner) (16:57 JSanders R.N.) Urine Urgent (16:46 05/24/2016 HBivens A.R.N.P.) (16:47 JSanders R.N.) MEDICATION ORDERS: IV FLUIDS: Toradol IV 30 mg (NOW) (16:45 05/24/2016 HBivens A.R.N.P.) (16:59 JSanders R.N.) IV Saline Lock (16:46 05/24/2016 HBivens A.R.N.P.) (16:57 JSanders R.N.) ORDER SHEET NOTES: [Electronically signed by Lorene Wang (22:13 05/24/2016)] [Electronically signed by Tia Paniagua R.N. (07:10 05/25/2016)] [Electronically locked/signed by Tia Paniagua R.N. (07:05/25/2016)]
--- NOTE | 2016-05-24 18:54 | ED NURSING NOTES ---
Clinical Report - Nurses [facility] [place] [address] 05/24/2016 15:31 [id number] Triage time 15:58 May 24 2016. Acuity: LEVEL 3. Chief Complaint: ABDOMINAL PAIN and NAUSEA and (Lower abd pain radiates to right flank. Still on menses). SEPSIS SCREEN: Sepsis Screen. Negative (no infection suspected/documented). WARNER COMA SCORE: Warner Coma Scale: 15- eyes open spontaneously (4); best verbal response- oriented x 4 (5); best motor response- obeys commands (6). --16:04 Tia Paniagua R.N. 15:58 05/24/16. BP: 136/92 (regular adult cuff) taken on the left arm, while sitting. HR: 94. RR: 16. O2 saturation: 100% on room air. Temp: 98.2 F (oral). Pain level now: 08/21. --16:04 Tia Paniagua R.N. Weight: 74.3 kg stated. Height/Length: 67 inches Per Patient. BMI: 25.7. --16:02 Tia Paniagua R.N. Medications None. --15:58 Tia Paniagua R.N. Allergies Tessalon. --15:58 Tia Paniagua R.N. History Arrived by private vehicle. Historian: patient. Primary physician (Dr Foss). Onset. (2 days ago). She has had nausea and cramping, constant abdominal pain. The pain is described as located in the RLQ and lower abdomen and radiating to the back and associated with nausea. Last oral intake by patient was (drank something half hour ago, last ate last night dinner). 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 PAST MEDICAL HX: Last normal menstrual period now. SOCIAL HX: Smoker- current status unknown. No alcohol use or drug use. No recent travel. No infectious disease exposure. No known contact with a sick individual. ABUSE ASSESSMENT: No report of abuse. --16:04 Tia Paniagua R.N. PROBLEMS: Exposure To Infectious Disease. URI. UTI - Urinary Tract Infection. Pyelonephritis. Pelvic Inflammatory Disease. Dysmenorrhea. Contusion. Neck Pain. Abdominal Pain. Acute Pain. Bronchitis. Costochondritis. Ectopic . Ureterolithiasis. Pharyngitis. Sinusitis. Migraine Headache. --15:59 Tia Paniagua R.N. ADDITIONAL SURGERIES: Cone biopsy. Lithotripsy. --15:59 Tia Paniagua R.N. Interventions ID band on patient. To treatment room. --16:04 Tia Paniagua R.N. PHYSICAL ASSESSMENT Ambulatory to room. Patient gowned. GENERAL / NEURO / PSYCH: Alert. Oriented X 4. HEENT: Mucous membranes are pink. RESPIRATORY: Respirations not labored. Breath sounds within normal limits. CVS: Capillary refill less than 2 seconds. GI / : The patient has had nausea. Abdomen soft. Abdominal tenderness in the right side of the abdomen and right lower quadrant. Stool color normal. SKIN: Skin is warm. --16:05 Tia Paniagua R.N. NURSING PROGRESS NOTES The plan of care for this patient has been created. Monitoring of patient in place. Patient gowned. Head of bed elevated. Reassurance given. Two patient identifiers checked. Call light placed in reach. Side rails up x 1. Bed placed in lowest position. Brakes of bed on. Patient ready for evaluation- chart flagged and ED physician notified. --16:05 Tia Paniagua R.N. 16:51 05/24/2016 Site #1 started via IV in the right antecubital space with an 20g angiocath, with aseptic technique and good blood return; one attempt. Blood drawn. Labeled in the presence of the patient and sent to the lab. Saline lock flushed with 10 mL saline. --16:57 Tia Paniagua R.N. 16:59 05/24/2016 Toradol IVP 30 mg given over 1 minute(s) via site #1. Allergies verified and confirmed 5 rights. IV patency established. IV site checked: no pain, redness, or swelling. IV flushed thoroughly pre- and post-medication administration. IVP given by RN. --16:59 Tia Paniagua R.N. ( Patient relaxing waiting for her CT scan, she declines a blanket). --17:00 Tia Paniagua R.N. 17:00 05/24/16. BP: 125/95 (regular adult cuff) taken on the left arm, while sitting. HR: 77. RR: 16. O2 saturation: 98% on room air. Pain level now: 08/21. --17:00 Tia Paniagua R.N. 17:25 05/24/2016 Toradol IVP Response: no adverse reaction pain is improving. Symptoms are the same. The patient feels the same. --17:25 Tia Paniagua R.N. 17:25 05/24/16. BP: 126/90 (regular adult cuff) taken on the left arm, while sitting. HR: 82. RR: 16. O2 saturation: 99% on room air. Pain level now: 08/21. --17:26 Tia Paniagua R.N. Patient transported to radiology by stretcher with [employer]. (17:59 May 24 2016). --17:59 Tia Paniagua R.N. Patient returned from radiology by stretcher with [employer]. (18:11 May 24 2016). --18:11 Tia Paniagua R.N. 18:11 05/24/16. BP: 132/93 (regular adult cuff) taken on the left arm, while sitting. HR: 86. RR: 18. O2 saturation: 100% on room air. Pain level now: 08/21. --18:11 Tia Paniagua R.N. DISPOSITION / DISCHARGE 19:05/24/16. Departure time: 1902. Condition at departure: improved and stable. No learning barriers present. Discharge instructions provided and reviewed with the patient. Reviewed medication(s) side effects, precautions, dosing and course information. Prescription(s) given to the patient. Patient verbalized understanding. Written instructions provided in Russian. The patient was discharged by the nurse practitioner. She was discharged home. She left the Emergency Department ambulatory and via private vehicle. Patient driving. --19:09 Vijay Rg R.N. 19:05/24/16. BP: 122/84. HR: 82. RR: 16. O2 saturation: 100% on room air. Temp: 98 F (oral). Pain level now 08/21. --19:09 Vijay Rg R.N. Locked/Released at 05/25/2016 7:10 by Tia Paniagua R.N.
--- NOTE | 2016-05-25 07:11 | ED MAR SUMMARY ---
..... Medication Administration Record [facility] [address] [place] [address] Patient: ALEX WEBSTER Visit ID: [id number] 35y, F Weight: 74.3 kg Height/Length: 67 in BMI: 25.7 ALLERGIES: Tessalon Given 16:59 05/24/2016 Tia Paniagua R.N. Medication Administered: TORADOL [IVP], Dose: 30 mg IVP over 1 minute(s), Site: #1 right AC. Medication Ordered: Toradol IV 30 mg (NOW).
--- NOTE | 2016-05-25 07:11 | ED MED RECONCILIATION SUMMARY ---
Patient: ALEX WEBSTER Medication Reconciliation Report [facility] VisitID: [id number] [address] [place] [address] 35y, F Registration Date/Time: 05/24/2016 Weight: 74.3 kg Height/Length: 67 in. BMI: 25.7 ALLERGIES: Tessalon The patient's Home Medications are listed below: NONE. The source(s) of the original Home Medication information: Not obtained. The following Medications were given to the patient in the Emergency Department: Toradol [IVP] IVP 30 mg, administered: 05/24/2016 4:59:00 PM The following Medications were prescribed to the patient: Macrobid 100 mg: Take 1 capsule orally every 12 hours for 7 days. No refills. Substitution is permissible. -- Lorene Wang, A.R.N.P. Ultram 50 mg tablets: take 1-2 orally every 6 hours as needed for pain. Dispense twenty (20). No refills. Substitution is permissible. -- Lorene Wang, A.R.N.P.
--- NOTE | 2016-05-25 07:11 | ED MAR SUMMARY ---
..... Medication Administration Record [facility] [address] [place] [address] Patient: ALEX WEBSTER Visit ID: [id number] 35y, F Weight: 74.3 kg Height/Length: 67 in BMI: 25.7 ALLERGIES: Tessalon Given 16:59 05/24/2016 Tia Paniagua R.N. Medication Administered: TORADOL [IVP], Dose: 30 mg IVP over 1 minute(s), Site: #1 right AC. Medication Ordered: Toradol IV 30 mg (NOW).
--- NOTE | 2016-05-25 07:11 | ED DISCHARGE INSTRUCTIONS ---
Patient: ALEX WEBSTER General Instructions [facility] VisitID: [id number] [place] [address] 35y, F Registration Date/Time: 05/24/2016 Primary dysmenorrhea Acute right lower quadrant abdominal pain. Acute urinary tract infection with cystitis associated with indwelling catheter and obstruction. No pyelonephritis or hematuria. INSTRUCTIONS Warnings: GENERAL WARNINGS: Return or contact your physician immediately if your condition worsens or changes unexpectedly, if not improving as expected, or if other problems arise. SPECIFICALLY, return if you develop pain in the abdomen or pelvis, fever, the inability to keep fluids down, blood in vomitus, blood in diarrhea, fainting or lightheadedness. Prescription Medications: Macrobid 100 mg: Take 1 capsule orally every 12 hours for 7 days. No refills. Substitution is permissible. Ultram 50 mg tablets: take 1-2 orally every 6 hours as needed for pain. Dispense twenty (20). No refills. Substitution is permissible. Follow-up: Follow up with your doctor in two days even if well. Call for an appointment. Summary of care provided to patient. Understanding of the discharge instructions verbalized by patient. ADDITIONAL INFORMATION Abdominal Pain, Unknown Cause (Female) The exact cause of your abdominal (stomach) pain is not certain. This does not mean that this is something to worry about, or the right tests were not done. Everyone likes to know the exact cause of the problem, but sometimes with abdominal pain, there is no clear-cut cause, and this could be a good thing. The good news is that your symptoms can be treated, and you will feel better. Your condition does not seem serious now; however, sometimes the signs of a serious problem may take more time to appear. For this reason,it is important for you to watch for any new symptoms, problems,or worsening of your condition. Over the next few days, the abdominal pain may come and go, or be continuous. Other common symptoms can include nausea and vomiting. Sometimes it can be difficult to tell if you feel nauseous, you may just feel bad and not associate that feeling with nausea. Constipation, diarrhea, and a fever may go along with the pain. The pain may continue even if treated correctly over the following days. Depending on how things go, sometimes the cause can become clear and may require further or different treatment. Additional evaluations, medications, or tests may be needed. Home care Your health care provider may prescribe medications for pain, symptoms, or an infection. Follow the health care provider's instructions for taking these medications. General care Rest until your next exam. No strenuous activities. Try to find positions that ease discomfort. A small pillow placed on the abdomen may help relieve pain. Something warm on your abdomen (such as a heating pad) may help, but be careful not to burn yourself. Diet Do not force yourself to eat, especially if having cramps, vomiting, or diarrhea. Water is important so you do not get dehydrated. Soup may also be good. Sports drinks may also help, especially if they are not too acidic. Make sure you don't drink sugary drinks as this can make things worse. Take liquids in small amounts. Do not guzzle them. Caffeine sometimes makes the pain and cramping worse. Avoid dairy products if you have vomiting or diarrhea. Don't eat large amounts at a time. Wait a few minutes between bites. Eat a diet low in fiber (called a low-residue diet). Foods allowed include refined breads, white rice, fruit and vegetable juices without pulp, tender meats. These foods will pass more easily through the intestine. Avoid whole-grain foods, whole fruits and vegetables, meats, seeds and nuts, fried or fatty foods, dairy, alcohol and spicy foods until your symptoms go away. Follow-up care Follow up with your health care provider as instructed, or if your pain does not begin to improve in the next 24 hours. When to seek medical care Seek prompt medical care if any of the following occur: Pain gets worse or moves to the right lower abdomen New or worsening vomiting or diarrhea Swelling of the abdomen Unable to pass stool for more than three days Fever of 100.4F (38C) or higher, or as directed by your healthcare provider. Blood in vomit or bowel movements (dark red or black color) Jaundice (yellow color of eyes and skin) Weakness, dizziness Chest, arm, back, neck or jaw pain Unexpected vaginal bleeding or missed period Call 911 Call emergency services if any of the following occur: Trouble breathing Confusion Fainting or loss of consciousness Rapid heart rate Seizure Abdominal Pain,Possible Appendicitis [Repeat Exam, Female] Based on your visit today, the exact cause of your abdominal (stomach) pain is not certain. However, you do have some of the early signs of APPENDICITIS. Early in an appendix infection the symptoms can be similar to a simple "stomach ache" or "stomach flu". Therefore, the diagnosis can be hard to make. Since an appendix infection is a serious condition, it is important to know if this is the cause of your symptoms. WAITING for more time to pass and repeating the exam is the best way to find out whether you have appendicitis. Within the next 12-24 hours the cause of your stomach pain should become clear. It is important for you to watch for any new symptoms or worsening of your condition. (See below). Home Care: Rest until your next exam. No strenuous activities. Eat a diet low in fiber (called a low-residue diet). Foods allowed include refined breads, white rice, fruit and vegetable juices without pulp, tender meats. These foods will pass more easily through the intestine. Avoid whole-grain foods, whole fruits and vegetables, meats, seeds and nuts, fried or fatty foods, dairy, alcohol and spicy foods until your symptoms go away. In some cases, you may be asked not to eat or drink anything until you are re-examined. Return for another exam exactly as directed. Follow Up with your doctor or this facility as directed. Get Prompt Medical Attention if any of the following occur: Pain gets worse or moves to the right lower abdomen New or worsening vomiting or diarrhea Swelling of the abdomen Unable to pass stool for more than three days Fever of 100.4F (38C) or higher, or as directed by your healthcare provider Blood in vomit or bowel movements (dark red or black color) Weakness, dizziness or fainting Unexpected vaginal bleeding Bladder Infection,Female (Adult) A bladder infection ("cystitis" or "UTI") usually causes a constant urge to urinate and a burning when passing urine. Urine may be cloudy, smelly or dark. There may be pain in the lower abdomen. A bladder infection occurs when bacteria from the vaginal area enter the bladder opening (urethra). This can occur from sexual intercourse, wearing tight clothing, dehydration and other factors. Home Care: Drink lots of fluids (at least 6-8 glasses a day, unless you must restrict fluids for other medical reasons). This will force the medicine into your urinary system and flush the bacteria out of your body. Avoid sexual intercourse until your symptoms are gone. Avoid caffeine, alcohol and spicy foods. These can irritate the bladder. A bladder infection is treated with antibiotics. You may also be given Pyridium (generic = phenazopyridine) to reduce the burning sensation. This medicine will cause your urine to become a bright orange color. The orange urine may stain clothing. You may wear a pad or panty-liner to protect clothing. Preventing Future Infections: Always wipe from front to back after a bowel movement. Keep the genital area clean and dry. Drink plenty of fluids each day to avoid dehydration. Both sexual partners should wash before intercourse. Urinate right after intercourse to flush out the bladder. Wear cotton underwear and cotton-lined panty hose; avoid tight-fitting pants. If you are on control pills and are having frequent bladder infections, discuss with your doctor. Follow Up: Return to this facility or see your doctor if ALL symptoms are not gone after three days of treatment. Get Prompt Medical Attention if any of the following occur: Fever of 100.4F (38C) or higher, or as directed by your healthcare provider No improvement by the third day of treatment Increasing back or abdominal pain Repeated vomiting; unable to keep medicine down Weakness, dizziness or fainting Vaginal discharge Pain, redness or swelling in the labia (outer vaginal area) Painful Menstrual Periods The uterus is a muscle and contracts normally during the menstrual cycle. The contraction pushes out the build-up of tissue that occurs each month inside the uterus. If the contraction is very strong, it can cause pain because the muscle is not getting enough oxygen for the amount of work it is doing. Pain with menstruation is called dysmenorrhea. The pain may feel like a dull ache or throbbing in the lower abdomen. It may spread to your lower back or inner thighs. In severe cases there may also be nausea, vomiting, loose stools, sweating or dizziness. There are two types of dysmenorrhea: Primary Dysmenorrhea (common menstrual cramps) usually appears within one or two years after you start your periods. It usually gets better or goes away as you get older or when you have a baby. The menstrual cramps usually start just before, or on the day of your period, and last 1-3 days. Treatment is with comfort measures and anti-inflammatory drugs as described below (see Home Care). If your pain is not controlled with these measures, your doctor may prescribe control pills. This will reduce the pain of each period. Secondary Dysmenorrhea starts later in life. The pain begins earlier in the menstrual cycle and lasts longer than common menstrual cramps. It is caused by a specific problem with the pelvic organs, such as: PID (pelvic inflammatory disease) -- an infection in the fallopian tubes Fibroids benign tumors within the wall of the uterus (not cancer) Endometriosis the tissue that lines the uterus spreads outside the uterus and grows there. This tissue swells and bleeds each month, just like the tissue in your uterus, and causes pain. IUD use -- especially in the first few months after placement Once the cause of secondary dysmenorrhea is found, it can be treated. Home Care: Most women with common menstrual cramping (primary dysmenorrhea) can remain active throughout their period. Many women find that regular exercise each werek reduces menstrual pain. If cramping is severe, rest in bed with a heating pad on the lower abdomen or lower back. A hot bath or massage to the lower back and abdomen may also give relief. Smoking can make symptoms worse. If you smoke, ask your doctor for help with a stop-smoking plan. Avoid caffeine and alcohol around the time of your period since these can make symptoms worse. Anti-inflammatory medicine such as aspirin, ibuprofen (Advil, Motrin) or naproxen (Aleve, Naprosyn) can be very helpful, especially if taken at the very first signs of bleeding or cramping . Acetaminophen (Tylenol) is not as effective for this problem. [NOTE: If you have chronic liver or kidney disease or ever had a stomach ulcer or GI bleeding, talk with your doctor before using these medicines.] If your pain is not controlled by the above measures, a prescription pain medicine may be required for a short time. Discuss this with your doctor. Follow Up with your doctor as advised. If you have just started menstruating in the past 1-2 years, and your pain is mild to moderate, your symptoms are most likely not a cause for concern. However, if menstrual cramps are severe enough to interfere with your daily activities, last longer than a few days, or if you are older and just started having menstrual pain, it is important to see your doctor for further evaluation. Get Prompt Medical Attention if any of the following occur: Fever over 100.4F (38.0C) with pelvic pain Uncontrolled menstrual pain or pain that lasts longer than usual or occurs between periods Unusual vaginal discharge between periods Heavy vaginal bleeding (soaking more than one pad an hour for three hours) Passage of pink or canales tissue from the vagina If you use tampons, watch for the following signs of Toxic Shock Syndrome and return at once: Fever over 102.0F (38.9C), with or without pelvic pain Vomiting, diarrhea Dizziness, weakness or fainting Rash that looks like a bad sunburn Nitrofurantoin, Nitrofurantoin, Macrocrystalline Oral capsule What is this medicine? NITROFURANTOIN (mikeryan rodriguezelias WADE toyn) is an antibiotic. It is used to treat urinary tract infections. How should I use this medicine? Take this medicine by mouth with a glass of water. Follow the directions on the prescription label. Take this medicine with food or milk. Take your doses at regular intervals. Do not take your medicine more often than directed. Do not stop taking except on your doctor's advice. Talk to your subassemblies wirer regarding the use of this medicine in children. While this drug may be prescribed for selected conditions, precautions do apply. What side effects may I notice from receiving this medicine? Side effects that you should report to your doctor or health adult live in caregiver as soon as possible: allergic reactions like skin rash or hives, swelling of the face, lips, or tongue chest pain cough difficulty breathing dizziness, drowsiness fever or infection joint aches or pains pale or blue-tinted skin redness, blistering, peeling or loosening of the skin, including inside the mouth tingling, burning, pain, or numbness in hands or feet unusual bleeding or bruising unusually weak or tired yellowing of eyes or skin Side effects that usually do not require medical attention (report to your doctor or health adult live in caregiver if they continue or are bothersome): dark urine diarrhea headache loss of appetite nausea or vomiting temporary hair loss What may interact with this medicine? antacids containing magnesium trisilicate probenecid quinolone antibiotics like ciprofloxacin, lomefloxacin, norfloxacin and ofloxacin sulfinpyrazone What if I miss a dose? If you miss a dose, take it as soon as you can. If it is almost time for your next dose, take only that dose. Do not take double or extra doses. Where should I keep my medicine? Keep out of the reach of children. Store at room temperature between 15 and 30 degrees C (59 and 86 degrees F). Protect from light. Throw away any unused medicine after the expiration date. What should I tell my health care provider before I take this medicine? They need to know if you have any of these conditions: anemia diabetes [id number] dehydrogenase deficiency kidney disease liver disease lung disease other chronic illness an unusual or allergic reaction to nitrofurantoin, other antibiotics, other medicines, foods, dyes or preservatives or trying to get breast-feeding What should I watch for while using this medicine? Tell your doctor or health adult live in caregiver if your symptoms do not improve or if you get new symptoms. Drink several glasses of water a day. If you are taking this medicine for a long time, visit your doctor for regular checks on your progress. If you are diabetic, you may get a false positive result for sugar in your urine with certain brands of urine tests. Check with your doctor. Tramadol Hydrochloride Oral tablet What is this medicine? TRAMADOL (TRA ma dole) is a pain reliever. It is used to treat moderate to severe pain in adults. How should I use this medicine? Take this medicine by mouth with a full glass of water. Follow the directions on the prescription label. If the medicine upsets your stomach, take it with food or milk. Do not take more medicine than you are told to take. Talk to your subassemblies wirer regarding the use of this medicine in children. Special care may be needed. What side effects may I notice from receiving this medicine? Side effects that you should report to your doctor or health adult live in caregiver as soon as possible: allergic reactions like skin rash, itching or hives, swelling of the face, lips, or tongue breathing difficulties, wheezing confusion itching light headedness or fainting spells redness, blistering, peeling or loosening of the skin, including inside the mouth seizures Side effects that usually do not require medical attention (report to your doctor or health adult live in caregiver if they continue or are bothersome): constipation dizziness drowsiness headache nausea, vomiting What may interact with this medicine? Do not take this medicine with any of the following medications: MAOIs like Carbex, Eldepryl, Marplan, Nardil, and Parnate This medicine may also interact with the following medications: alcohol or medicines that contain alcohol antihistamines benzodiazepines bupropion carbamazepine or oxcarbazepine clozapine cyclobenzaprine digoxin furazolidone linezolid medicines for depression, anxiety, or psychotic disturbances medicines for migraine headache like almotriptan, eletriptan, frovatriptan, naratriptan, rizatriptan, sumatriptan, zolmitriptan medicines for pain like pentazocine, buprenorphine, butorphanol, meperidine, nalbuphine, and propoxyphene medicines for sleep muscle relaxants naltrexone phenobarbital phenothiazines like perphenazine, thioridazine, chlorpromazine, mesoridazine, fluphenazine, prochlorperazine, promazine, and trifluoperazine procarbazine warfarin What if I miss a dose? If you miss a dose, take it as soon as you can. If it is almost time for your next dose, take only that dose. Do not take double or extra doses. Where should I keep my medicine? Keep out of the reach of children. Store at room temperature between 15 and 30 degrees C (59 and 86 degrees F). Keep container tightly closed. Throw away any unused medicine after the expiration date. What should I tell my health care provider before I take this medicine? They need to know if you have any of these conditions: brain tumor depression drug abuse or addiction head injury if you frequently drink alcohol containing drinks kidney disease or trouble passing urine liver disease lung disease, asthma, or breathing problems seizures or epilepsy suicidal thoughts, plans, or attempt; a previous suicide attempt by you or a family member an unusual or allergic reaction to tramadol, codeine, other medicines, foods, dyes, or preservatives or trying to get breast-feeding What should I watch for while using this medicine? Tell your doctor or health adult live in caregiver if your pain does not go away, if it gets worse, or if you have new or a different type of pain. You may develop tolerance to the medicine. Tolerance means that you will need a higher dose of the medicine for pain relief. Tolerance is normal and is expected if you take this medicine for a long time. Do not suddenly stop taking your medicine because you may develop a severe reaction. Your body becomes used to the medicine. This does NOT mean you are addicted. Addiction is a behavior related to getting and using a drug for a non-medical reason. If you have pain, you have a medical reason to take pain medicine. Your doctor will tell you how much medicine to take. If your doctor wants you to stop the medicine, the dose will be slowly lowered over time to avoid any side effects. You may get drowsy or dizzy. Do not drive, use machinery, or do anything that needs mental alertness until you know how this medicine affects you. Do not stand or sit up quickly, especially if you are an older patient. This reduces the risk of dizzy or fainting spells. Alcohol can increase or decrease the effects of this medicine. Avoid alcoholic drinks. You may have constipation. Try to have a bowel movement at least every 2 to 3 days. If you do not have a bowel movement for 3 days, call your doctor or health adult live in caregiver. Your mouth may get dry. Chewing sugarless gum or sucking hard candy, and drinking plenty of water may help. Contact your doctor if the problem does not go away or is severe. You have been given the following additional information: Abdominal Pain, Unknown Cause, (Female) Abdominal Pain, Possible Appendicitis (Female) Bladder Infection, Female (Adult) Dysmenorrhea Nitrofurantoin, Nitrofurantoin, Macrocrystalline Oral capsule Tramadol Hydrochloride Oral tablet (Electronically signed by Lorene Wang A.R.N.P. 05/24/2016 22:13)
--- NOTE | 2016-05-25 07:11 | ED MED RECONCILIATION SUMMARY ---
Patient: ALEX WEBSTER Medication Reconciliation Report [facility] VisitID: [id number] [place] [address] 35y, F Registration Date/Time: 05/24/2016 Weight: 74.3 kg Height/Length: 67 in. BMI: 25.7 ALLERGIES: Tessalon The patient's Home Medications are listed below: NONE. The source(s) of the original Home Medication information: Not obtained. The following Medications were given to the patient in the Emergency Department: Toradol [IVP] IVP 30 mg, administered: 05/24/2016 4:59:00 PM The following Medications were prescribed to the patient: Macrobid 100 mg: Take 1 capsule orally every 12 hours for 7 days. No refills. Substitution is permissible. -- Lorene Wang, A.R.N.P. Ultram 50 mg tablets: take 1-2 orally every 6 hours as needed for pain. Dispense twenty (20). No refills. Substitution is permissible. -- Lorene Wang, A.R.N.P.
== END 2016-05-24 19:03 | disposition home or self-care (01) ==
LOC: ED SRH 15:31
DX: N30.00 Acute cystitis without hematuria (principal); N94.6 Dysmenorrhea, unspecified; R10.31 Right lower quadrant pain; Z87.891 Personal history of nicotine dependence; Z88.8 Allergy status to other drugs, medicaments and biological substances
CPT/HCPCS: 90004; 90100; 92235; 92530; 93070; 95059

== ENCOUNTER 2016-06-24 14:19 | Emergency (ER) | payer OTHER ==
--- NOTE | 2016-06-24 17:43 | ED CLINICAL REPORT ---
Clinical Report - Physicians/Mid Levels [facility] [address] [place] [address] 06/24/2016 14:19 Patient: ALEX WEBSTER Time Seen: 15:48 Jun 24 2016. Arrived- By private vehicle. Historian- patient. HISTORY OF PRESENT ILLNESS Chief Complaint: ABDOMINAL PAIN. This started today and is still present. It is described as "pain" and it is described as located in the lower abdomen. No nausea, vomiting or diarrhea. (Menses started over the last 24 hours, worsening of abdominal pain today. Patient denies any nausea vomiting or diarrhea. Menses and pain dysmenorrhea similar to the last month. Patient has not followed up with her OB.). REVIEW OF SYSTEMS No hematemesis, difficulty with urination, pain with urination, urinary frequency or missed periods. No fever, headache, sore throat or chills. All systems otherwise negative, except as recorded above. PAST HISTORY Problems: Dental Caries. Flank Pain. Exposure To Infectious Disease. URI. UTI - Urinary Tract Infection. Pyelonephritis. Pelvic Inflammatory Disease. Dysmenorrhea. Contusion. Back Pain. Neck Pain. Tetanus Status. Abdominal Pain. Acute Pain. Bronchitis. Costochondritis. Vaginal Bleeding. Ectopic . Ureterolithiasis. Dental Pain. Abscess. Pharyngitis. Sinusitis. Migraine Headache. Pelvic Pain. Immunizations. Threatened . LNMP - Last Normal Menstrual Period. OB History. Pelvic Inflammatory Disease [RuleOut]. Dental Pain [RuleOut]. Additional Surgeries: Cone biopsy. Lithotripsy. Medications: None. Allergies: Tessalon. SOCIAL HISTORY No alcohol use. ADDITIONAL NOTES The nursing notes have been reviewed. PHYSICAL EXAM Vital Signs: 06/24/2016 14:25 BP: 143/96. HR: 119. RR: 16. O2 saturation: 100%. Temp: 98.2 F. Pain level now: 8/10. Appearance: Alert. Eyes: Eyes normal inspection. ENT: Ears normal. CVS: Normal heart rate and rhythm. Heart sounds normal. Respiratory: No respiratory distress. Breath sounds normal. No decreased air movement. Abdomen: Soft. Back: Normal inspection. LABS, X-RAYS, AND EKG Laboratory Tests: UA-Culture if indicated: (RIMA: 06/24/2016 15:10) ( [facility] [place] 06/24/2016 16:14) Final results Test Result Flag Units (Reference) URINE COLOR COLORLESS URINE APPEARANCE CLEAR URINE GLUCOSE NEGATIVE (NEGATIVE) URINE BILIRUBIN NEGATIVE (NEGATIVE) URINE KETONE NEGATIVE (NEGATIVE) URINE SPECIFIC GRAVITY <= 1.005 L (1.010-1.030) URINE PH 6.5 (5.0-8.0) URINE PROTEIN NEGATIVE (NEGATIVE) URINE UROBILINOGEN 0.2 EU/dL (0.2-1.0) URINE NITRITE NEGATIVE (NEGATIVE) URINE BLOOD NEGATIVE (NEGATIVE) URINE LEUK ESTERASE NEGATIVE (NEGATIVE) URINE RBC NONE SEEN rbc/hpf (0-1) URINE WBC NONE SEEN wbc/hpf (0-1) URINE EPITHELIAL CELLS NONE SEEN EPI/hpf (0-5) URINE BACTERIA NONE SEEN (NONE SEEN) URINE COMMENT CULT NOT INDICATED URINE CULTURES ARE SET-UP BASED ON THE FOLLOWING CRITERIA:POSITIVE NITRITEPOSITIVE LEUKOCYTE ESTERASEGREATER THAN 10 WHITE BLOOD CELLSMODERATE (2+) OR GREATER BACTERIA Urine: (RIMA: 06/24/2016 15:10) ( [facility] 06/24/2016 15:52) Final results Test Result Flag Units (Reference) URINE NEGATIVE CBC w Diff: (RIMA: 06/24/2016 14:35) ( [facility] 06/24/2016 15:29) Final results Test Result Flag Units (Reference) WHITE BLOOD COUNT 8.5 K/uL (4.5-11.5) RED BLOOD COUNT 4.86 M/uL (4.00-5.20) HEMOGLOBIN 12.8 gm/dL (12.0-16.0) HEMATOCRIT 40.3 % (36.0-46.0) MEAN CELL VOLUME 83 fL (80-100) MEAN CORPUSCULAR HGB 26 pg (26-34) MEAN CORPUSCULAR HGB CONC 32 g/dL (31-37) RED CELL DISTRIBUTION WIDTH 14.5 % (11.6-14.8) PLATELET COUNT 292 K/uL (150-400) NEUTROPHIL % 67.6 % (50-75) LYMPH % 24.0 L % (25-40) MONO % 5.9 % (3-14) EOSINOPHIL % 2.1 % (0-4) BASOPHIL % 0.4 % (0-2) CMP: (RIMA: 06/24/2016 16:30) ( [facility] 06/24/2016 17:39) Final results Test Result Flag Units (Reference) GLUCOSE 84 mg/dL (70-110) BUN 9 mg/dL (7-18) CREATININE 0.6 mg/dL (0.6-1.3) Estimated GFR >60 mL/min Estimated GFR- >60 mL/min Note: Persistent reduction over 3 months in eGFR<60 mL/min/1.73 m2 defines CKD. Patients with eGFR values>=60 mL/min/1.73 m2 may also have CKD if evidence ofpersistent proteinuria. Additional information may be foundat www.kidney.org. SODIUM 141 mmol/L (136-145) POTASSIUM 3.8 mmol/L (3.5-5.1) CHLORIDE 105 mmol/L (98-107) CARBON DIOXIDE 25 mmol/L (21-32) CALCIUM 8.5 mg/dL (8.5-10.1) TOTAL PROTEIN 7.2 g/dL (6.4-8.2) ALBUMIN 3.7 g/dL (3.3-5.0) BILIRUBIN, TOTAL 0.2 mg/dL (0.0-1.0) ALKALINE PHOSPHATASE 67 U/L (46-116) AST (SGOT) 13 L U/L (15-37) ALT (SGPT) 20 U/L (12-78) Wet Prep: (RIMA: 06/24/2016 15:05) ( [facility] 06/24/2016 16:37) Final results SPECIMEN DESCRIPTION: C Test Result Flag Units (Reference) WET MOUNT CLUE CELLS:: NONE EPITHELIAL CELLS: NONE -- SOURCE?: CERVIX WHITE BLOOD CELLS: NONE TRICHOMONAS:: NONE -- YEAST:: NONE . PROGRESS AND PROCEDURES Course of Care: Pelvic exam with no focal tenderness. Mild bleeding. No discharge. Patient with no McBurney's point tenderness. The same pain as one month previously with dysmenorrhea. Patient very stable. At this time I do not suspect ectopic, torsion. Patient should follow-up with CREDIT CONTROL MANAGER. During the time in the ED, the following DDX were considered: acute surgical abdomen, hemodynamic or metabolic instability, dehydration, gastroenteritis-viral, food borne, or bacterial, food intolerance, irritable or inflammatory bowel, infection, sepsis. 06/24/2016 17:52 BP: 128/83. HR: 86. RR: 18. O2 saturation: 98%. Temp: 98.6 F. Patient is stable. Patient/family counseled. Disposition: Discharged. CLINICAL IMPRESSION Primary dysmenorrhea INSTRUCTIONS Drink plenty of fluids. (take your prescription medications in addition take 800 mg of motrin and Tylneol 650 mg as needed, no further Narcotics will be given for this. Please Follow up with your PCP/ CREDIT CONTROL MANAGER heat packs [place] [facility] OTC). Prescription Medications: Motrin 800 mg tablets: take 1 tablet orally every 8 hours for 5 days, as needed for pain. Dispense fifteen (15). No refill. Follow-up with: Kee Seo MD, Obstetrics/Gynecology, , [facility], [address] [place] [address] (Electronically signed by Tanya Ryan P.A.-C 06/24/2016 17:56)
--- NOTE | 2016-06-24 17:43 | ED NURSING NOTES ---
Clinical Report - Nurses [facility] [address] [place] [address] 06/24/2016 14:19 Patient: ALEX WEBSTER TRIAGE Triage time 14:27. Acuity: LEVEL 3. Chief Complaint: ABDOMINAL PAIN and NAUSEA and (Describes suprapubic pain, says "I have had painful periods in the past and I started yesterday but this is different pain, if I have to push to go to the bathroom it is really painful. I was bleeding really bad this morning but I think it is slowing down." status unknown, says there could be a chance.). Alert. SEPSIS SCREEN: Sepsis Screen: negative. Negative (no infection suspected/documented). --14:34 Aditya Mccord R.N. 14:25 06/24/16. BP: 143/96 (regular adult cuff) taken on the right arm, via an automated monitor, while lying. HR: 119 (tachycardic). RR: 16 (regular, unlabored and normal). O2 saturation: 100% on room air. Temp: 98.2 F (oral). Pain level now: 09/21. --14:34 Aditya Mccord R.N. Weight: 77.1 kg stated. Height/Length: 67 inches Per Patient. BMI: 26.6. --14:28 Aditya Mccord R.N. Medications None. --14:29 Aditya Mccord R.N. Medication/allergy information source: the patient. --14:34 Aditya Mccord R.N. Allergies Tessalon. --14:29 Aditya Mccord R.N. History Arrived by private vehicle. Historian: patient. Accompanied by family. Primary physician (Dr. Foss). This started today. No vomiting, diarrhea, constipation or fever. Last oral intake by patient was yesterday. 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 (800 mg about 30 minutes ago, Tramadol this AM (took edge of little bit)). PAST MEDICAL HX: Last normal menstrual period- LNMP started yesterday, last 2 months periods have been late. SOCIAL HX: Smoker- current status unknown. No alcohol use or drug use. She has not traveled outside the [place] The patient was not exposed to MRSA. No infectious disease exposure. ABUSE ASSESSMENT: Abuse assessment: The patient was asked "Do you feel safe in your home?" and "Has anyone hurt you or threatened to hurt you?". No report of abuse. SELF HARM ASSESSMENT: A self harm assessment was performed. The patient answered "no" to the question "Do you have thoughts of harming or killing yourself?" and "Have you recently had thoughts about harming or killing others?". FALL RISK ASSESSMENT: Fall risk assessment completed. No fall risk identified. NUTRITIONAL RISK ASSESSMENT: The nutritional risk assessment revealed no deficiencies. FUNCTIONAL ASSESSMENT: Functional assessment: no impairments noted. LEARNING NEEDS ASSESSMENT: The learning needs assessment revealed no barriers. --14:34 Aditya Mccord R.N. PROBLEMS: Dental Caries. Flank Pain. Exposure To Infectious Disease. URI. UTI - Urinary Tract Infection. Pyelonephritis. Pelvic Inflammatory Disease. Dysmenorrhea. Contusion. Back Pain. Neck Pain. Tetanus Status. Abdominal Pain. Acute Pain. Bronchitis. Costochondritis. Vaginal Bleeding. Ectopic . Ureterolithiasis. Dental Pain. Abscess. Pharyngitis. Sinusitis. Migraine Headache. Pelvic Pain. Immunizations. Threatened . LNMP - Last Normal Menstrual Period. OB History. --14:30 Aditya Mccord R.N. Pelvic Inflammatory Disease [RuleOut]. UTI - Urinary Tract Infection [RuleOut]. Dental Pain [RuleOut]. --14:30 Aditya Mccord R.N. ADDITIONAL SURGERIES: Cone biopsy. Lithotripsy. --14:30 Aditya Mccord R.N. Assessment GENERAL / NEURO / PSYCH: Alert. Oriented X 4. Appears in pain. Patient appears calm and cooperative. RESPIRATORY: No respiratory distress. Respirations not labored. SKIN: Skin is warm and dry. --14:34 Adiyta Mccord R.N. Interventions ID band on patient. To treatment room. Report given to the primary nurse. to KATERINA Ren. --14:34 Aditya Mccord R.N. PHYSICAL ASSESSMENT Ambulatory to room. GENERAL / NEURO / PSYCH: Alert. Oriented X 4. Appears anxious. HEENT: Mucous membranes are pink. RESPIRATORY: Respirations not labored. Breath sounds within normal limits. ( Dental decay.). CVS: Normal sinus rhythm noted. Capillary refill less than 2 seconds. GI / : Abdomen soft. Bowel sounds within normal limits. Normal genitalia. Stool color normal. Stool heme negative. (POC test reference range: negative). ( Supra pubic pain states heavy period Had a normal BM this am.). SKIN: Skin is warm and dry. --14:50 Gela Lancaster R.N. NURSING PROGRESS NOTES The initial plan of care for this patient has been created This plan of care was discussed with the patient. Pulse oximeter and NIBP monitor placed on patient. Patient gowned. Reassurance given to the patient. Two patient identifiers checked. Call light placed in reach. Side rails up x 1. Bed placed in lowest position. Brakes of bed on. Patient ready for evaluation- ED physician and PA notified. --14:34 Aditya Mccord R.N. 14:35 06/24/2016 Site #1 started via IV in the left wrist with an 20g angiocath; one attempt. Saline lock flushed with 10 mL saline. --14:35 Aditya Mccord R.N. Patient ID band checked for patient name and birthdate: patient confirmed. Instructions provided to collect clean catch urine and patient verbalized understanding. Clean catch urine collected with return of yellow-colored clear urine; sample sent to lab for urinalysis. Specimen labeled in the presence of the patient. --14:35 Aditya Mccord R.N. 15:34 06/24/2016 Percocet (Oxycodone-Acetaminophen) PO 5/325 mg Tablets 1 tab given. Allergies verified, confirmed 5 rights and sedative warning given to the patient and patient's herbarium curator. --15:34 Gela Lancaster R.N. DISPOSITION / DISCHARGE 17:53 06/24/2016 Site #1 removed upon discharge. Catheter intact. Pressure dressing applied. --17:53 Gela Lancaster R.N. Departure time: 17:53 Jun 24 2016. Condition at departure: improved. No learning barriers present. Discharge instructions provided and reviewed with the patient. Reviewed warnings. Reviewed medication(s). Treatments reviewed. Reviewed referrals. Patient verbalized understanding. Written instructions provided in Norwegian. The patient was discharged home and accompanied by family. She left the Emergency Department ambulatory and via private vehicle. Family member driving. --17:53 Gela Lancaster R.N. 17:52 06/24/16. BP: 128/83. HR: 86. RR: 18. O2 saturation: 98%. Temp: 98.6 F. Pain level now 04/21. --17:53 Gela Lancaster R.N. Locked/Released at 06/24/2016 18:55 by Gela Lancaster R.N.
--- NOTE | 2016-06-24 17:43 | ED CLINICAL REPORT ---
Clinical Report - Physicians/Mid Levels [facility] [address] [place] [address] 06/24/2016 14:19 Patient: ALEX WEBSTER Time Seen: 15:48 Jun 24 2016. Arrived- By private vehicle. Historian- patient. HISTORY OF PRESENT ILLNESS Chief Complaint: ABDOMINAL PAIN. This started today and is still present. It is described as "pain" and it is described as located in the lower abdomen. No nausea, vomiting or diarrhea. (Menses started over the last 24 hours, worsening of abdominal pain today. Patient denies any nausea vomiting or diarrhea. Menses and pain dysmenorrhea similar to the last month. Patient has not followed up with her OB.). REVIEW OF SYSTEMS No hematemesis, difficulty with urination, pain with urination, urinary frequency or missed periods. No fever, headache, sore throat or chills. All systems otherwise negative, except as recorded above. PAST HISTORY Problems: Dental Caries. Flank Pain. Exposure To Infectious Disease. URI. UTI - Urinary Tract Infection. Pyelonephritis. Pelvic Inflammatory Disease. Dysmenorrhea. Contusion. Back Pain. Neck Pain. Tetanus Status. Abdominal Pain. Acute Pain. Bronchitis. Costochondritis. Vaginal Bleeding. Ectopic . Ureterolithiasis. Dental Pain. Abscess. Pharyngitis. Sinusitis. Migraine Headache. Pelvic Pain. Immunizations. Threatened . LNMP - Last Normal Menstrual Period. OB History. Pelvic Inflammatory Disease [RuleOut]. Dental Pain [RuleOut]. Additional Surgeries: Cone biopsy. Lithotripsy. Medications: None. Allergies: Tessalon. SOCIAL HISTORY No alcohol use. ADDITIONAL NOTES The nursing notes have been reviewed. PHYSICAL EXAM Vital Signs: 06/24/2016 14:25 BP: 143/96. HR: 119. RR: 16. O2 saturation: 100%. Temp: 98.2 F. Pain level now: 8/10. Appearance: Alert. Eyes: Eyes normal inspection. ENT: Ears normal. CVS: Normal heart rate and rhythm. Heart sounds normal. Respiratory: No respiratory distress. Breath sounds normal. No decreased air movement. Abdomen: Soft. Back: Normal inspection. LABS, X-RAYS, AND EKG Laboratory Tests: UA-Culture if indicated: (RIMA: 06/24/2016 15:10) ( [facility] [place] 06/24/2016 16:14) Final results Test Result Flag Units (Reference) URINE COLOR COLORLESS URINE APPEARANCE CLEAR URINE GLUCOSE NEGATIVE (NEGATIVE) URINE BILIRUBIN NEGATIVE (NEGATIVE) URINE KETONE NEGATIVE (NEGATIVE) URINE SPECIFIC GRAVITY <= 1.005 L (1.010-1.030) URINE PH 6.5 (5.0-8.0) URINE PROTEIN NEGATIVE (NEGATIVE) URINE UROBILINOGEN 0.2 EU/dL (0.2-1.0) URINE NITRITE NEGATIVE (NEGATIVE) URINE BLOOD NEGATIVE (NEGATIVE) URINE LEUK ESTERASE NEGATIVE (NEGATIVE) URINE RBC NONE SEEN rbc/hpf (0-1) URINE WBC NONE SEEN wbc/hpf (0-1) URINE EPITHELIAL CELLS NONE SEEN EPI/hpf (0-5) URINE BACTERIA NONE SEEN (NONE SEEN) URINE COMMENT CULT NOT INDICATED URINE CULTURES ARE SET-UP BASED ON THE FOLLOWING CRITERIA:POSITIVE NITRITEPOSITIVE LEUKOCYTE ESTERASEGREATER THAN 10 WHITE BLOOD CELLSMODERATE (2+) OR GREATER BACTERIA Urine: (RIMA: 06/24/2016 15:10) ( [facility] 06/24/2016 15:52) Final results Test Result Flag Units (Reference) URINE NEGATIVE CBC w Diff: (RIMA: 06/24/2016 14:35) ( [facility] [place] 06/24/2016 15:29) Final results Test Result Flag Units (Reference) WHITE BLOOD COUNT 8.5 K/uL (4.5-11.5) RED BLOOD COUNT 4.86 M/uL (4.00-5.20) HEMOGLOBIN 12.8 gm/dL (12.0-16.0) HEMATOCRIT 40.3 % (36.0-46.0) MEAN CELL VOLUME 83 fL (80-100) MEAN CORPUSCULAR HGB 26 pg (26-34) MEAN CORPUSCULAR HGB CONC 32 g/dL (31-37) RED CELL DISTRIBUTION WIDTH 14.5 % (11.6-14.8) PLATELET COUNT 292 K/uL (150-400) NEUTROPHIL % 67.6 % (50-75) LYMPH % 24.0 L % (25-40) MONO % 5.9 % (3-14) EOSINOPHIL % 2.1 % (0-4) BASOPHIL % 0.4 % (0-2) CMP: (RIMA: 06/24/2016 16:30) ( [facility] 06/24/2016 17:39) Final results Test Result Flag Units (Reference) GLUCOSE 84 mg/dL (70-110) BUN 9 mg/dL (7-18) CREATININE 0.6 mg/dL (0.6-1.3) Estimated GFR >60 mL/min Estimated GFR- >60 mL/min Note: Persistent reduction over 3 months in eGFR<60 mL/min/1.73 m2 defines CKD. Patients with eGFR values>=60 mL/min/1.73 m2 may also have CKD if evidence ofpersistent proteinuria. Additional information may be foundat www.kidney.org. SODIUM 141 mmol/L (136-145) POTASSIUM 3.8 mmol/L (3.5-5.1) CHLORIDE 105 mmol/L (98-107) CARBON DIOXIDE 25 mmol/L (21-32) CALCIUM 8.5 mg/dL (8.5-10.1) TOTAL PROTEIN 7.2 g/dL (6.4-8.2) ALBUMIN 3.7 g/dL (3.3-5.0) BILIRUBIN, TOTAL 0.2 mg/dL (0.0-1.0) ALKALINE PHOSPHATASE 67 U/L (46-116) AST (SGOT) 13 L U/L (15-37) ALT (SGPT) 20 U/L (12-78) Wet Prep: (RIMA: 06/24/2016 15:05) ( [facility] 06/24/2016 16:37) Final results SPECIMEN DESCRIPTION: C Test Result Flag Units (Reference) WET MOUNT CLUE CELLS:: NONE EPITHELIAL CELLS: NONE -- SOURCE?: CERVIX WHITE BLOOD CELLS: NONE TRICHOMONAS:: NONE -- YEAST:: NONE . PROGRESS AND PROCEDURES Course of Care: Pelvic exam with no focal tenderness. Mild bleeding. No discharge. Patient with no McBurney's point tenderness. The same pain as one month previously with dysmenorrhea. Patient very stable. At this time I do not suspect ectopic, torsion. Patient should follow-up with COOPERATIVE MANAGER. During the time in the ED, the following DDX were considered: acute surgical abdomen, hemodynamic or metabolic instability, dehydration, gastroenteritis-viral, food borne, or bacterial, food intolerance, irritable or inflammatory bowel, infection, sepsis. 06/24/2016 17:52 BP: 128/83. HR: 86. RR: 18. O2 saturation: 98%. Temp: 98.6 F. Patient is stable. Patient/family counseled. Disposition: Discharged. CLINICAL IMPRESSION Primary dysmenorrhea INSTRUCTIONS Drink plenty of fluids. (take your prescription medications in addition take 800 mg of motrin and Tylneol 650 mg as needed, no further Narcotics will be given for this. Please Follow up with your PCP/ COOPERATIVE MANAGER heat packs [place] [facility] OTC). Prescription Medications: Motrin 800 mg tablets: take 1 tablet orally every 8 hours for 5 days, as needed for pain. Dispense fifteen (15). No refill. Follow-up with: Kee Seo MD, Obstetrics/Gynecology, , [facility], [address] [place] [address] (Electronically signed by Tanya Ryan P.A.-C 06/24/2016 17:56)
--- NOTE | 2016-06-24 17:43 | ED ORDER SUMMARY ---
..... Patient: ALEX WEBSTER OrderSheet [facility] VisitID: [id number] [address] [place] [address] 35y, F Registration Date/Time: 06/24/2016 ORDER SHEET Weight: 77.1 kg (stated) Allergies: Tessalon GENERAL ORDERS: CBC w Diff Urgent (15:00 06/24/2016 EKoroleva P.A.-C) (Ack 15:01 TBergley) (15:20 LWhalen R.N.) CMP Urgent (15:00 06/24/2016 EKoroleva P.A.-C) (Ack 15:01 TBergley) (15:20 LWhalen R.N.) UA-Culture if indicated Urgent (15:00 06/24/2016 EKoroleva P.A.-C) (Ack 15:01 TBergley) (15:20 LWhalen R.N.) Urine Urgent (15:00 06/24/2016 EKoroleva P.A.-C) (Ack 15:01 TBergley) (15:20 LWhalen R.N.) Wet Prep (Cervix) (c) Urgent (16:21 06/24/2016 EKoroleva P.A.-C) (16:38 TBergley) MEDICATION ORDERS: Percocet PO 5/325 mg (HIGH ALERT MEDICATION, NOW) (15:29 06/24/2016 EKoroleva P.A.-C) (15:34 LWhalen R.N.) IV FLUIDS: ORDER SHEET NOTES: [Electronically signed by Tanya RyanA.-C (17:56 06/24/2016)] [Electronically signed by Gela Lancaster R.N. (18:55 06/24/2016)] [Electronically locked/signed by Gela Lancaster R.N. (18:55 06/24/2016)]
--- NOTE | 2016-06-24 17:43 | ED ORDER SUMMARY ---
..... Patient: ALEX WEBSTER OrderSheet [facility] VisitID: [id number] [address] [place] [address] 35y, F Registration Date/Time: 06/24/2016 ORDER SHEET Weight: 77.1 kg (stated) Allergies: Tessalon GENERAL ORDERS: CBC w Diff Urgent (15:00 06/24/2016 EKoroleva P.A.-C) (Ack 15:01 TBergley) (15:20 LWhalen R.N.) CMP Urgent (15:00 06/24/2016 EKoroleva P.A.-C) (Ack 15:01 TBergley) (15:20 LWhalen R.N.) UA-Culture if indicated Urgent (15:00 06/24/2016 EKoroleva P.A.-C) (Ack 15:01 TBergley) (15:20 LWhalen R.N.) Urine Urgent (15:00 06/24/2016 EKoroleva P.A.-C) (Ack 15:01 TBergley) (15:20 LWhalen R.N.) Wet Prep (Cervix) (c) Urgent (16:21 06/24/2016 EKoroleva P.A.-C) (16:38 TBergley) MEDICATION ORDERS: Percocet PO 5/325 mg (HIGH ALERT MEDICATION, NOW) (15:29 06/24/2016 EKoroleva P.A.-C) (15:34 LWhalen R.N.) IV FLUIDS: ORDER SHEET NOTES: [Electronically signed by Tanya RyanA.-C (17:56 06/24/2016)] [Electronically signed by Gela Lancaster R.N. (18:55 06/24/2016)] [Electronically locked/signed by Gela Lancaster R.N. (18:55 06/24/2016)]
--- NOTE | 2016-06-24 18:55 | ED DISCHARGE INSTRUCTIONS ---
Patient: ALEX WEBSTER General Instructions [facility] VisitID: [id number] [place] [address] 35y, F Registration Date/Time: 06/24/2016 Primary dysmenorrhea INSTRUCTIONS Drink plenty of fluids. (take your prescription medications in addition take 800 mg of motrin and Tylneol 650 mg as needed, no further Narcotics will be given for this. 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 Prescription Medications: Motrin 800 mg tablets: take 1 tablet orally every 8 hours for 5 days, as needed for pain. Dispense fifteen (15). No refill. Follow-up with: Kee Seo MD, Obstetrics/Gynecology, , [facility], [address] [place] [address] ADDITIONAL INFORMATION Painful Menstrual Periods The uterus is a muscle and contracts normally during the menstrual cycle. The contraction pushes out the build-up of tissue that occurs each month inside the uterus. If the contraction is very strong, it can cause pain because the muscle is not getting enough oxygen for the amount of work it is doing. Pain with menstruation is called dysmenorrhea. The pain may feel like a dull ache or throbbing in the lower abdomen. It may spread to your lower back or inner thighs. In severe cases there may also be nausea, vomiting, loose stools, sweating or dizziness. There are two types of dysmenorrhea: Primary Dysmenorrhea (common menstrual cramps) usually appears within one or two years after you start your periods. It usually gets better or goes away as you get older or when you have a baby. The menstrual cramps usually start just before, or on the day of your period, and last 1-3 days. Treatment is with comfort measures and anti-inflammatory drugs as described below (see Home Care). If your pain is not controlled with these measures, your doctor may prescribe control pills. This will reduce the pain of each period. Secondary Dysmenorrhea starts later in life. The pain begins earlier in the menstrual cycle and lasts longer than common menstrual cramps. It is caused by a specific problem with the pelvic organs, such as: PID (pelvic inflammatory disease) -- an infection in the fallopian tubes Fibroids benign tumors within the wall of the uterus (not cancer) Endometriosis the tissue that lines the uterus spreads outside the uterus and grows there. This tissue swells and bleeds each month, just like the tissue in your uterus, and causes pain. IUD use -- especially in the first few months after placement Once the cause of secondary dysmenorrhea is found, it can be treated. Home Care: Most women with common menstrual cramping (primary dysmenorrhea) can remain active throughout their period. Many women find that regular exercise each werek reduces menstrual pain. If cramping is severe, rest in bed with a heating pad on the lower abdomen or lower back. A hot bath or massage to the lower back and abdomen may also give relief. Smoking can make symptoms worse. If you smoke, ask your doctor for help with a stop-smoking plan. Avoid caffeine and alcohol around the time of your period since these can make symptoms worse. Anti-inflammatory medicine such as aspirin, ibuprofen (Advil, Motrin) or naproxen (Aleve, Naprosyn) can be very helpful, especially if taken at the very first signs of bleeding or cramping . Acetaminophen (Tylenol) is not as effective for this problem. [NOTE: If you have chronic liver or kidney disease or ever had a stomach ulcer or GI bleeding, talk with your doctor before using these medicines.] If your pain is not controlled by the above measures, a prescription pain medicine may be required for a short time. Discuss this with your doctor. Follow Up with your doctor as advised. If you have just started menstruating in the past 1-2 years, and your pain is mild to moderate, your symptoms are most likely not a cause for concern. However, if menstrual cramps are severe enough to interfere with your daily activities, last longer than a few days, or if you are older and just started having menstrual pain, it is important to see your doctor for further evaluation. Get Prompt Medical Attention if any of the following occur: Fever over 100.4F (38.0C) with pelvic pain Uncontrolled menstrual pain or pain that lasts longer than usual or occurs between periods Unusual vaginal discharge between periods Heavy vaginal bleeding (soaking more than one pad an hour for three hours) Passage of pink or canales tissue from the vagina If you use tampons, watch for the following signs of Toxic Shock Syndrome and return at once: Fever over 102.0F (38.9C), with or without pelvic pain Vomiting, diarrhea Dizziness, weakness or fainting Rash that looks like a bad sunburn You have been given the following additional information: Dysmenorrhea (Electronically signed by Tanya Ryan P.A.-C 06/24/2016 17:56)
--- NOTE | 2016-06-24 18:55 | ED DISCHARGE INSTRUCTIONS ---
Patient: ALEX WEBSTER General Instructions [facility] VisitID: [id number] [place] [address] 35y, F Registration Date/Time: 06/24/2016 Primary dysmenorrhea INSTRUCTIONS Drink plenty of fluids. (take your prescription medications in addition take 800 mg of motrin and Tylneol 650 mg as needed, no further Narcotics will be given for this. 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 Prescription Medications: Motrin 800 mg tablets: take 1 tablet orally every 8 hours for 5 days, as needed for pain. Dispense fifteen (15). No refill. Follow-up with: Kee Seo MD, Obstetrics/Gynecology, , [facility], [address] [place] [address] ADDITIONAL INFORMATION Painful Menstrual Periods The uterus is a muscle and contracts normally during the menstrual cycle. The contraction pushes out the build-up of tissue that occurs each month inside the uterus. If the contraction is very strong, it can cause pain because the muscle is not getting enough oxygen for the amount of work it is doing. Pain with menstruation is called dysmenorrhea. The pain may feel like a dull ache or throbbing in the lower abdomen. It may spread to your lower back or inner thighs. In severe cases there may also be nausea, vomiting, loose stools, sweating or dizziness. There are two types of dysmenorrhea: Primary Dysmenorrhea (common menstrual cramps) usually appears within one or two years after you start your periods. It usually gets better or goes away as you get older or when you have a baby. The menstrual cramps usually start just before, or on the day of your period, and last 1-3 days. Treatment is with comfort measures and anti-inflammatory drugs as described below (see Home Care). If your pain is not controlled with these measures, your doctor may prescribe control pills. This will reduce the pain of each period. Secondary Dysmenorrhea starts later in life. The pain begins earlier in the menstrual cycle and lasts longer than common menstrual cramps. It is caused by a specific problem with the pelvic organs, such as: PID (pelvic inflammatory disease) -- an infection in the fallopian tubes Fibroids benign tumors within the wall of the uterus (not cancer) Endometriosis the tissue that lines the uterus spreads outside the uterus and grows there. This tissue swells and bleeds each month, just like the tissue in your uterus, and causes pain. IUD use -- especially in the first few months after placement Once the cause of secondary dysmenorrhea is found, it can be treated. Home Care: Most women with common menstrual cramping (primary dysmenorrhea) can remain active throughout their period. Many women find that regular exercise each werek reduces menstrual pain. If cramping is severe, rest in bed with a heating pad on the lower abdomen or lower back. A hot bath or massage to the lower back and abdomen may also give relief. Smoking can make symptoms worse. If you smoke, ask your doctor for help with a stop-smoking plan. Avoid caffeine and alcohol around the time of your period since these can make symptoms worse. Anti-inflammatory medicine such as aspirin, ibuprofen (Advil, Motrin) or naproxen (Aleve, Naprosyn) can be very helpful, especially if taken at the very first signs of bleeding or cramping . Acetaminophen (Tylenol) is not as effective for this problem. [NOTE: If you have chronic liver or kidney disease or ever had a stomach ulcer or GI bleeding, talk with your doctor before using these medicines.] If your pain is not controlled by the above measures, a prescription pain medicine may be required for a short time. Discuss this with your doctor. Follow Up with your doctor as advised. If you have just started menstruating in the past 1-2 years, and your pain is mild to moderate, your symptoms are most likely not a cause for concern. However, if menstrual cramps are severe enough to interfere with your daily activities, last longer than a few days, or if you are older and just started having menstrual pain, it is important to see your doctor for further evaluation. Get Prompt Medical Attention if any of the following occur: Fever over 100.4F (38.0C) with pelvic pain Uncontrolled menstrual pain or pain that lasts longer than usual or occurs between periods Unusual vaginal discharge between periods Heavy vaginal bleeding (soaking more than one pad an hour for three hours) Passage of pink or canales tissue from the vagina If you use tampons, watch for the following signs of Toxic Shock Syndrome and return at once: Fever over 102.0F (38.9C), with or without pelvic pain Vomiting, diarrhea Dizziness, weakness or fainting Rash that looks like a bad sunburn You have been given the following additional information: Dysmenorrhea (Electronically signed by Tanya Ryan P.A.-C 06/24/2016 17:56)
--- NOTE | 2016-06-24 18:56 | ED MAR SUMMARY ---
..... Medication Administration Record [facility] [address] [place] [address] Patient: ALEX WEBSTER Visit ID: [id number] 35y, F Weight: 77.1 kg Height/Length: 67 in BMI: 26.6 ALLERGIES: Tessalon Given 15:34 06/24/2016 Gela Lancaster R.N. Medication Administered: PERCOCET [PO] (OXYCODONE-ACETAMINOPHEN), Dose: 1 tab 5/325 mg Tablets PO. Medication Ordered: Percocet PO 5/325 mg (HIGH ALERT MEDICATION, NOW).
--- NOTE | 2016-06-24 18:56 | ED MED RECONCILIATION SUMMARY ---
Patient: ALEX WEBSTER Medication Reconciliation Report [facility] VisitID: [id number] [address] [place] [address] 35y, F Registration Date/Time: 06/24/2016 Weight: 77.1 kg Height/Length: 67 in. BMI: 26.6 ALLERGIES: Tessalon The patient's Home Medications are listed below: NONE. The source(s) of the original Home Medication information: patient The following Medications were given to the patient in the Emergency Department: Percocet [PO] PO 1 tab, administered: 06/24/2016 3:34:00 PM The following Medications were prescribed to the patient: Motrin 800 mg tablets: take 1 tablet orally every 8 hours for 5 days, as needed for pain. Dispense fifteen (15). No refill. -- Tanya Ryan PMasoodAMasood-C
--- NOTE | 2016-06-24 18:56 | ED MED RECONCILIATION SUMMARY ---
Patient: ALEX WEBSTER Medication Reconciliation Report [facility] VisitID: [id number] [address] [place] [address] 35y, F Registration Date/Time: 06/24/2016 Weight: 77.1 kg Height/Length: 67 in. BMI: 26.6 ALLERGIES: Tessalon The patient's Home Medications are listed below: NONE. The source(s) of the original Home Medication information: patient The following Medications were given to the patient in the Emergency Department: Percocet [PO] PO 1 tab, administered: 06/24/2016 3:34:00 PM The following Medications were prescribed to the patient: Motrin 800 mg tablets: take 1 tablet orally every 8 hours for 5 days, as needed for pain. Dispense fifteen (15). No refill. -- Tanya Ryan PMasoodAMasood-C
--- NOTE | 2016-06-24 18:56 | ED MAR SUMMARY ---
..... Medication Administration Record Located Within [facility] [address] [place] [address] Patient: ALEX WEBSTER Visit ID: [id number] 35y, F Weight: 77.1 kg Height/Length: 67 in BMI: 26.6 ALLERGIES: Tessalon Given 15:34 06/24/2016 Gela Lancaster R.N. Medication Administered: PERCOCET [PO] (OXYCODONE-ACETAMINOPHEN), Dose: 1 tab 5/325 mg Tablets PO. Medication Ordered: Percocet PO 5/325 mg (HIGH ALERT MEDICATION, NOW).
== END 2016-06-24 17:50 | disposition home or self-care (01) ==
LOC: ED SRH 14:19
DX: N94.4 Primary dysmenorrhea (principal); Z88.8 Allergy status to other drugs, medicaments and biological substances
CPT/HCPCS: 90004; 90100; 90195; 93070; 95059